=== PATIENT | female | born 1995 | race Caucasian/White ===

== ENCOUNTER 2018-04-14 11:05 | Outpatient (CLI) | payer OTHER, SELFPAY ==
[2018-04-14 11:06] VITALS: BP 116/67; PULSE 85; RESP 18; TEMP 36.4; O2SAT 100; BMI 21.7
--- NOTE | 2018-04-14 11:16 | ED.RN ---
VERIFIED WITH ER PHYSICIAN THAT PT SHOULD BE SENT TO OB. OB CALLED AND INFORMATION GIVEN TO NURSE. PT TAKEN BY WHEELCHAIR TO OB.
[2018-04-14 11:52] VITALS: BMI 21.3
--- NOTE | 2018-04-14 12:17 | US_ITS ---
STUDY: SECOND AND THIRD TRIMESTER OBSTETRICAL ULTRASOUND REASON FOR EXAM: Female, 23 years old. Anatomy scan. Bleeding and pain. LMP: 11/06/2017 TECHNIQUE: Transabdominal and Transvaginal TECHNICAL QUALITY: Adequate. PRIOR ULTRASOUND: None. FINDINGS: There is a single intrauterine fetus. The fetus is in an transverse lie with the head on the maternal left side. There is demonstrated cardiac activity with a heart rate of 155 bpm. There is a normal amniotic fluid volume. The largest amniotic fluid pocket measures 8.9 cm. The placenta is anterior in location and is not low lying. There are Grade 2 placental changes. The cervix measures 3.9 cm in length. A hyperechoic band is seen across the lower uterine segment. No entrapment segments are seen. BIOMETRY: BPD: 5.9: 24 weeks, 2 days HC: 21.7: 23 weeks, 6 days AC: 19.1: 23 weeks, 6 days FL: 4.1: 23 weeks, 3 days CI: FL/BPD: FL/HC: FL/AC: HC/AC: age by current US: 23 weeks, 6 days. CAROLINA by current US: 08/05/2018. Estimated weight: 619 grams, +/- 90 grams, 87 %. age by prior US: weeks, days. CAROLINA by prior US: . Age by LMP: 22 weeks, 5 days. CAROLINA by LMP: 08/13/2018. ANATOMY: Gender: Indeterminant Cranium: Normal lateral ventricles. Normal choroid plexus. Normal cerebellum. Normal cisterna magna. Normal face, nose and lips. Chest: Normal 4-chamber heart. Abdomen/Pelvis: Normal diaphragm. Normal stomach. Normal abdominal wall. Normal cord insertion. Normal 3 vessel cord. Normal kidneys. Normal bladder. Spine: Normal cervical spine. Normal thoracic spine. Normal lumbar spine. Normal sacrum. Extremities: Normal bilateral upper extremities. Normal bilateral lower extremities. US/OB Anatomy Scan IMPRESSION: Single live fetus in a transverse presentation. No demonstrated anatomic abnormality, however a short length band is seen across the lower uterine segment. Placenta is grade 2 and is not low-lying. Cervix is closed. age by current US: 23 weeks, 6 days. CAROLINA by current US: 08/05/2018. Estimated weight: 619 grams, +/- 90 grams, 87 %. Electronically Signed: Elio Mancilla MD at 16:56 EST , Service support ,
[2018-04-14 12:45] LABS: Mucous, Urine 0 SEEN /hpf (<or=2+)
--- NOTE | 2018-04-14 12:52 | OB.TRI.NOTE ---
- Problem List (1) Abdominal pain affecting Status: Acute History of Present Illness Date of Service: 04/14/18 Was patient seen by the physician?: Yes Reason For Visit: BLEEDING Date of Service: 04/14/18 Final CAROLINA: 08/13/18 Final CAROLINA Source: LMP Gestational age: 22 Weeks and 5 Days History of Present Illness: Presents to L&D with complaint of abdominal cramping that has been on and off throughout the . Yesterday became more severe and curled up in ball on floor due to pain. Denies it being regular or rhythmic but more intermittent every couple hours. Had small amount of vaginal spotting on toilet paper but nothing in underwear, this only occurred once. No intercourse in last 24 hours. 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 Here with today. She has not had any anatomy ultrasound during . Blood type A positive per patient. Allergies No Known Allergies Allergy (Verified 02/09/15 09:20) Review of Systems Constitutional: Denies: Chills, Fever, Weight Change HEENT: Denies: Head Aches, Sinus Congestion, Sinus Drainage Cardiovascular: Denies: Chest Pain, Palpitations Respiratory: Denies: Cough, Shortness of breath at rest, Sputum production Gastrointestinal: Reports: Abdominal Pain. Denies: Nausea, Vomiting Genitourinary: Denies: Dysuria Psychiatric: Denies: Anxiety, Depression, Homicidal Ideations, Suicidal Ideations Physical Exam General: Alert, Oriented x3, No apparent distress HEENT: Atraumatic, Normocephalic Cardiovascular: Regular rate, Regular Rhythm, No murmurs Lungs: Clear to auscultation, No rhonchi, No wheeze Abdomen: Non Tender, Gravid Extremities:: No edema COACH PROFESSIONAL ATHLETES: Normal external genitalia - Speculum exam: cervix closed, small amount of white discharge, no odor, no blood NST - FHR Rate Baby A Baseline: FHR 150, Too early for NST Impression/Plan A: 22w5d EGA by LMP Abdominal pain P: 1) Reviewed with patient uterine irritability and would like to monitor at this time. 2) Anatomy Ultrasound ordered with cervical length. No cervical exam at this time due to second trimester vaginal bleeding and unknown placental location. Visual inspection with speculum exam. 3) 1 Liter LR IV bolus 4) notified of plan of care and agrees for comanagement. Lisette Gross, JAMIN, CNM
--- NOTE | 2018-04-14 12:56 | OB.TRI.HP_ITS ---
- Problem List (1) Abdominal pain affecting Status: Acute History of Present Illness Date of Service: 04/14/18 Was patient seen by the physician?: Yes Reason For Visit: BLEEDING Date of Service: 04/14/18 Final CAROLINA: 08/13/18 Final CAROLINA Source: LMP Gestational age: 22 Weeks and 5 Days History of Present Illness: Presents to L&D with complaint of abdominal cramping that has been on and off throughout the . Yesterday became more severe and curled up in ball on floor due to pain. Denies it being regular or rhythmic but more intermittent every couple hours. Had small amount of vaginal spotting on toilet paper but nothing in underwear, this only occurred once. No intercourse in last 24 hours. Current care by rn peritoneal dialysis in [place]. Here with today. She has not had any anatomy ultrasound during . Blood type A positive per patient. Allergies No Known Allergies Allergy (Verified 02/09/15 09:20) Review of Systems Constitutional: Denies: Chills, Fever, Weight Change HEENT: Denies: Head Aches, Sinus Congestion, Sinus Drainage Cardiovascular: Denies: Chest Pain, Palpitations Respiratory: Denies: Cough, Shortness of breath at rest, Sputum production Gastrointestinal: Reports: Abdominal Pain. Denies: Nausea, Vomiting Genitourinary: Denies: Dysuria Psychiatric: Denies: Anxiety, Depression, Homicidal Ideations, Suicidal Ideations Physical Exam General: Alert, Oriented x3, No apparent distress HEENT: Atraumatic, Normocephalic Cardiovascular: Regular rate, Regular Rhythm, No murmurs Lungs: Clear to auscultation, No rhonchi, No wheeze Abdomen: Non Tender, Gravid Extremities:: No edema SERVICES MANAGER: Normal external genitalia - Speculum exam: cervix closed, small amount of white discharge, no odor, no blood NST - FHR Rate Baby A Baseline: FHR 150, Too early for NST Impression/Plan A: 22w5d EGA by LMP Abdominal pain P: 1) Reviewed with patient uterine irritability and would like to monitor at this time. 2) Anatomy Ultrasound ordered with cervical length. No cervical exam at this time due to second trimester vaginal bleeding and unknown placental location. Visual inspection with speculum exam. 3) 1 Liter LR IV bolus 4) notified of plan of care and agrees for comanagement. Lisette Gross, JAMIN, CNM
[2018-04-14 13:17] LABS: Color, Urine Yellow (Yellow); Urine Clarity Sl Cldy (Clear)
[2018-04-14 13:18] LABS: Glucose, Dipstick NEGATIVE (Normal); Nitrite-Dipstick Negative (Negative); Protein-Dipstick 15 mg/dl (Negative)
[2018-04-14 13:19] LABS: Ketone-Dipstick Negative (Negative); Leukocyte Esterase-Dipstick 2+ /ul (Negative); Occult Blood-Urine 250 /ul (Negative); Urine Bilirubin Dipstick Negative (Negative); Urine Urobilinogen Normal (Normal)
[2018-04-14 13:27] LABS: White Blood Cells 10-25 SEEN /hpf (0-5)
[2018-04-14 13:28] LABS: Bacteria 1+ /hpf (None Seen); Red Blood Cells-Urine 25-50 SEEN /hpf (0-5); Squamous Epithelial Cells - UA 0-5 SEEN /hpf (5-10)
[2018-04-14] MEDS: Lactated Ringers 1,000 ML 999 ML IV (14:20)
--- NOTE | 2018-04-14 17:34 | OB.TRI.PN ---
Progress Notes Date of Service: 04/14/18 Progress Note: Patient comfortable in room. Denies any current pain or vaginal bleeding. at bedside. O:Anatomy U/S normal, cervical length 3.9cm, placenta anterior. A:False Labor P: 1) Reviewed anatomy U/S with patient. No signs of PTL at this time. 2) Reviewed PTL precautions in depth and when to call. 3) Patient plans to resume care with Maile Nolen CPM in [place]. Patient given information about [facility] if she needs anything further or comanagement of care. Patient plans to go to [facility] if emergency. 4) UA negative, Urine culture sent and awaiting results. Laboratory Studies: Laboratory Tests 04/14/18 Range/Units 12:25 Urine Color Yellow (Yellow) Urine Clarity Sl Cldy (Clear) Urine pH 7.0 (5.0 - 8.0) Ur Specific [place] 1.000 L (1.002-1.030) Urine Protein 15 H (Negative) mg/dl Urine Glucose (UA) NEGATIVE (Normal) mg/dl Urine Ketones Negative (Negative) mg/dl Urine Occult Blood 250 (Negative) /ul Urine Nitrite Negative (Negative) Urine Bilirubin Negative (Negative) mg/dL Urine Urobilinogen Normal (Normal) mg/dl Ur Leukocyte Esterase 2+ (Negative) /ul Urine RBC 25-50 SEEN (0-5) /hpf Urine WBC 10-25 SEEN (0-5) /hpf Ur Squamous Epith Cells 0-5 SEEN (5-10) /hpf Urine Bacteria 1+ (None Seen) /hpf Urine Mucus 0 SEEN (<or=2+) /hpf
--- NOTE | 2018-04-14 17:38 | OB.TRI.PN_ITS ---
Progress Notes Date of Service: 04/14/18 Progress Note: Patient comfortable in room. Denies any current pain or vaginal bleeding. at bedside. O:Anatomy U/S normal, cervical length 3.9cm, placenta anterior. A:False Labor P: 1) Reviewed anatomy U/S with patient. No signs of PTL at this time. 2) Reviewed PTL precautions in depth and when to call. 3) Patient plans to resume care with Maile Nolen CPM in [place]. Patient given information about [facility] if she needs anything further or comanagement of care. Patient plans to go to [facility] if emergency. 4) UA negative, Urine culture sent and awaiting results. Laboratory Studies: Laboratory Tests 04/14/18 Range/Units 12:25 Urine Color Yellow (Yellow) Urine Clarity Sl Cldy (Clear) Urine pH 7.0 (5.0 - 8.0) Ur Specific [place] 1.000 L (1.002-1.030) Urine Protein 15 H (Negative) mg/dl Urine Glucose (UA) NEGATIVE (Normal) mg/dl Urine Ketones Negative (Negative) mg/dl Urine Occult Blood 250 (Negative) /ul Urine Nitrite Negative (Negative) Urine Bilirubin Negative (Negative) mg/dL Urine Urobilinogen Normal (Normal) mg/dl Ur Leukocyte Esterase 2+ (Negative) /ul Urine RBC 25-50 SEEN (0-5) /hpf Urine WBC 10-25 SEEN (0-5) /hpf Ur Squamous Epith Cells 0-5 SEEN (5-10) /hpf Urine Bacteria 1+ (None Seen) /hpf Urine Mucus 0 SEEN (<or=2+) /hpf
== END 2018-04-14 17:25 | disposition home or self-care (01) ==
LOC: WPOUT 11:35 → WP 11:35
PROVIDERS: Family Provider Family Medicine; PCP Family Medicine; Referring Provider Obstetrics & Gynecology; Visit Provider Obstetrics & Gynecology
DX: O47.02 False labor before 37 completed weeks of gestation, second trimester (principal); Z3A.22 22 weeks gestation of pregnancy; R10.9 Unspecified abdominal pain
CPT/HCPCS: 96360; 59050; 76805; 81001; 87086; 87088; 99218; J7120; G0378

== ENCOUNTER → 2020-05-14 | Outpatient (CLI) | payer SELFPAY ==
[2020-05-14 14:54] VITALS: BMI 21.2
[2020-05-17 15:47] LABS: HPV Reflexed? NOT INDICATED
== END | disposition home or self-care (01) ==
LOC: LABSPEC 16:56
PROVIDERS: Visit Provider Obstetrics & Gynecology
DX: O09.90 Supervision of high risk pregnancy, unspecified, unspecified trimester (principal); Z3A.00 Weeks of gestation of pregnancy not specified; Z12.4 Encounter for screening for malignant neoplasm of cervix
CPT/HCPCS: 87086; 87088; 88175; G0145

== ENCOUNTER → 2020-06-14 15:13 | Outpatient (CLI) | payer OTHER, SELFPAY ==
[2020-06-14 15:36] LABS: Absolute Lymphocyte Count 2.04 X10^3/uL (0.83-4.51); Absolute Neutrophil Count 7.5 X10^3/uL (2.0-7.7); Basophil# 0.02 X10^3/uL; Basophil% 0.2 % (0-1); Eosinophil# 0.06 X10^3/uL; Eosinophils% 0.6 % (0-5); Hematocrit 36.6 % (37-47); Hemoglobin 12.5 g/dL (12.0-15.0); Lymphocyte # 2.04 X10^3/ul (4.0); Lymphocyte % 19.9 % (19-41); Mean Corp Hgb Conc 34.2 g/dL (32-36); Mean Corpuscular Hgb 31.7 pg (27.0-32.0); Mean Corpuscular Volume 92.9 fL (81-99); Mean Platelet Vol. 8.7 fl (6.2-12.0); Monocyte# 0.62 X10^3/uL; Monocyte% 6.1 % (0-10); NRBC Flagged by Analyzer 0 % (0-5); Neutrophil # 7.46 X10^3/uL (2.7-7.7); Neutrophil % 72.9 % (47-70); Platelet Count 231 K/mm3 (150-450); RBC Distribution Width CV 13.4 % (11.6-14.6); RBC Distribution Width SD 46.1 fl (35.1-43.9); Red Blood Count 3.94 M/mm3 (4.2-5.4); White Blood Count 10.2 K/mm3 (4.4-11.0)
[2020-06-14 15:44] LABS: POSITIVE COUNT NO; POSITIVE DIFFERENTIAL NO; POSITIVE MORPHOLOGY NO
[2020-06-14 16:07] LABS: Rubella IgG Reactive (Nonreactive)
== END ==
PROVIDERS: Obstetrics & Gynecology; Referring Provider Obstetrics & Gynecology; Visit Provider Obstetrics & Gynecology
DX: O09.90 Supervision of high risk pregnancy, unspecified, unspecified trimester (principal); Z3A.00 Weeks of gestation of pregnancy not specified
CPT/HCPCS: 36415; 85025; 86762; 86850; 86900; 86901

== ENCOUNTER → 2020-07-12 14:51 | Outpatient (CLI) | payer SELFPAY ==
[2020-07-12 14:25] VITALS: BMI 22.6
--- NOTE | 2020-07-12 14:52 | US_ITS ---
STUDY: SECOND AND THIRD TRIMESTER OBSTETRICAL ULTRASOUND REASON FOR EXAM: Female, 25 years old ANATOMY LMP: 02/15/2020. TECHNIQUE: Transabdominal TECHNICAL QUALITY: Adequate. PRIOR ULTRASOUND: None. FINDINGS: There is a single intrauterine fetus. The fetus is in a variable presentation. There is demonstrated cardiac activity with a heart rate of 153 bpm. There is a normal amniotic fluid volume. The largest amniotic fluid pocket measures 4.5 cm. The amniotic fluid index (KADEN) is normal limits. The placenta is posterior in location and is not low lying. There are Grade 0 placental changes. The cervix measures 3.2 cm in length. The bilateral adnexal regions are normal. BIOMETRY: BPD: 5.06 cm: 21 weeks, 2 days HC: 18.57 cm: 20 weeks, 6 days AC: 16.02 cm: 21 weeks, 0 days FL: 3.39 cm: 20 weeks, 4 days CI: 77% FL/BPD: 67% FL/HC: FL/AC: 21% HC/AC: 1.16 age by current US: 20 weeks, 6 days. CAROLINA by current US: 11/23/2020. Estimated weight: 391 grams, +/- 59 grams, 36 %. Age by LMP: 21 weeks, 1 days. CAROLINA by LMP: 11/21/2020. ANATOMY: Gender: Male Cranium: Normal lateral ventricles. Normal choroid plexus. Normal cerebellum. Normal cisterna magna. Normal face, nose and lips. Chest: Normal 4-chamber heart. Abdomen/Pelvis: Normal diaphragm. Normal stomach. Normal abdominal wall. Normal cord insertion. Normal 3 vessel cord. Normal kidneys. Normal bladder. Spine: Normal cervical spine. Normal thoracic spine. Normal lumbar spine. Normal sacrum. Extremities: Normal bilateral upper extremities. Normal bilateral lower extremities. US/OB Anatomy Scan IMPRESSION: Single live intrauterine gestation with a mean gestational age of 20 weeks and 6 days. Electronically Signed: Pranav Connors MD at 10:25 EST , Service support ,
== END ==
PROVIDERS: Referring Provider Obstetrics & Gynecology; Visit Provider Obstetrics & Gynecology
DX: Z36.9 Encounter for antenatal screening, unspecified (principal)
CPT/HCPCS: 76805

== ENCOUNTER → 2020-08-29 14:31 | Outpatient (CLI) | payer SELFPAY ==
[2020-08-10 13:46] VITALS: BMI 23.1
[2020-08-23 14:02] VITALS: BMI 23.8
[2020-08-29 14:49] LABS: Absolute Lymphocyte Count 1.82 X10^3/uL (0.83-4.51); Absolute Neutrophil Count 8.8 X10^3/uL (2.0-7.7); Basophil# 0.01 X10^3/uL; Basophil% 0.1 % (0-1); Eosinophil# 0.03 X10^3/uL; Eosinophils% 0.3 % (0-5); Hematocrit 35.9 % (37-47); Hemoglobin 12.3 g/dL (12.0-15.0); Lymphocyte # 1.82 X10^3/ul (4.0); Lymphocyte % 15.9 % (19-41); Mean Corp Hgb Conc 34.3 g/dL (32-36); Mean Corpuscular Hgb 32.9 pg (27.0-32.0); Mean Platelet Vol. 8.5 fl (6.2-12.0); Monocyte# 0.68 X10^3/uL; NRBC Flagged by Analyzer 0 % (0-5); Neutrophil # 8.83 X10^3/uL (2.7-7.7); Neutrophil % 77.3 % (47-70); Platelet Count 197 K/mm3 (150-450); RBC Distribution Width CV 13.9 % (11.6-14.6); RBC Distribution Width SD 48.8 fl (35.1-43.9); Red Blood Count 3.74 M/mm3 (4.2-5.4); White Blood Count 11.4 K/mm3 (4.4-11.0)
[2020-08-29 14:59] LABS: Glucose Challenge Gest 1H 50g 182 mg/dL (70-140)
== END ==
PROVIDERS: Referring Provider Nurse Practitioner Women's Health; Visit Provider Nurse Practitioner Women's Health
DX: O09.90 Supervision of high risk pregnancy, unspecified, unspecified trimester (principal); Z3A.00 Weeks of gestation of pregnancy not specified; Z13.1 Encounter for screening for diabetes mellitus
CPT/HCPCS: 36415; 82950; 85025

== ENCOUNTER 2020-09-05 11:40 | Outpatient (RCR) | payer SELFPAY ==
[2020-08-29 14:51] VITALS: BMI 23.7
== END 2020-09-05 23:59 ==
LOC: DC 11:40
PROVIDERS: Visit Provider Nurse Practitioner Women's Health
DX: Z71.3 Dietary counseling and surveillance (principal); O24.419 Gestational diabetes mellitus in pregnancy, unspecified control; Z3A.00 Weeks of gestation of pregnancy not specified
CPT/HCPCS: 97802

== ENCOUNTER 2020-09-20 11:30 | Outpatient (RCR) | payer SELFPAY ==
[2020-09-05 13:55] VITALS: BMI 23.1
== END 2020-10-05 23:59 ==
LOC: DC 11:30
PROVIDERS: Visit Provider Nurse Practitioner Women's Health
DX: O24.419 Gestational diabetes mellitus in pregnancy, unspecified control (principal); Z3A.00 Weeks of gestation of pregnancy not specified

== ENCOUNTER → 2020-10-26 | Outpatient (CLI) | payer SELFPAY ==
[2020-09-28 14:00] VITALS: BMI 23.6
[2020-10-26 14:03] VITALS: BMI 23.6
== END | disposition home or self-care (01) ==
LOC: LABSPEC 16:52
PROVIDERS: Visit Provider Obstetrics & Gynecology
DX: Z34.93 Encounter for supervision of normal pregnancy, unspecified, third trimester (principal)
CPT/HCPCS: 87081

== ENCOUNTER 2020-11-19 01:32 | Inpatient (IN) | payer SELFPAY ==
[2020-11-16 14:40] VITALS: BMI 23.6
[2020-11-19] VITALS (24 sets, daily range): BP systolic 93–111; BP diastolic 52–73; PULSE 60–120; RESP 14–18; TEMP 36.1–37.6; O2SAT 97–99; BMI 24.2
[2020-11-19] MEDS: Lactated Ringers 1,000 ML 999 ML IV (01:51)
[2020-11-19 01:58] LABS: Absolute Lymphocyte Count 1.64 X10^3/uL (0.83-4.51); Absolute Neutrophil Count 11.5 X10^3/uL (2.0-7.7); Basophil# 0.01 X10^3/uL; Basophil% 0.1 % (0-1); Eosinophil# 0.01 X10^3/uL; Eosinophils% 0.1 % (0-5); Hematocrit 38.7 % (37-47); Hemoglobin 13.1 g/dL (12.0-15.0); Lymphocyte # 1.64 X10^3/ul (0.83-4.51); Lymphocyte % 11.8 % (19-41); Mean Corp Hgb Conc 33.9 g/dL (32-36); Mean Corpuscular Hgb 32.6 pg (27.0-32.0); Mean Corpuscular Volume 96.3 fL (81-99); Mean Platelet Vol. 9.3 fl (6.2-12.0); Monocyte# 0.77 X10^3/uL; Monocyte% 5.5 % (0-10); NRBC Flagged by Analyzer 0 % (0-5); Neutrophil # 11.45 X10^3/uL (2.7-7.7); Platelet Count 183 K/mm3 (150-450); RBC Distribution Width CV 12.8 % (11.6-14.6); RBC Distribution Width SD 45.1 fl (35.1-43.9); Red Blood Count 4.02 M/mm3 (4.2-5.4)
[2020-11-19] MEDS: Ondansetron 4 MG/2 ML Vial IV (02:09)
--- NOTE | 2020-11-19 02:16 | HP.PCM.OB_ITS ---
HPI - General General Date of Admission: 11/19/20 HPI Narrative RAY GONG, is a 25 F who presents IAL 7 cm dilated with regular ctx. she denies any vb or lof admits good fm. Maternal Data Information CAROLINA Calculator Estimated Delivery Date Method Current WG Current Estimate 11/21/20 LMP (Certain) 39w 5d Other Estimates 11/20/20 Ultrasound #1 39w 6d PFSH PFSH Medical History Anxiety H/O maternal blood transfusion, currently (~08/2019) Hyperglycemia in Home Medications vit,[id number] 1 tab PO DAILY 04/14/18 [History Last Taken 04/09/18 10:00] blood sugar diagnostic #100 each 08/29/20 [Rx Last Taken Unknown] blood-glucose meter #1 each 08/29/20 [Rx Last Taken Unknown] blood sugar diagnostic #10 each 09/05/20 [History Last Taken Unknown] blood-glucose meter #1 each 09/05/20 [History Last Taken Unknown] Allergy/AdvReac Type Severity Reaction Status Date / Time No Known Allergies Allergy Verified 11/19/20 01:17 Family History Mother Breast cancer Grandfather Cancer Grandmother Breast cancer Surgical History H/O dilation and curettage (~08/2018) Social History household members: family housing: house number of children: 1 Smoking Status: Never smoker second hand exposure: No alcohol intake: never substance use type: does not use seatbelt use: always do you feel safe at home: Yes additional social history: [place] Medical History 2 Elective abortions Hx Para 1 Spontaneous abortions Hx # Term Pregnancies Ectopic pregnancies Hx # Pregnancies Multiple births # of living children 1 Past Pregnancies Del. Date Name GA/Weeks Outcome Route Bth Weight Gen Labor Lgth Anesthesia Del Locatn Provider FOB 08/19/18 Roland 40 live - full term 8lbs 15oz Male 8 h ours none Birthing Center in [place] Delivery Date: 08/19/18 hemorrhage- retained placenta, post dilation and curettage; blood transfusion- received 2 units of blood at [facility] Visit Details Expected Delivery Route/Plan by 40 weeks Labor Preferences- CB/BF classes: no labor support person: Ameena labor intervention preferences: IA if able, okay with touch and pressure, hydrotherapy, pain management options preferred: natural, minimal intervention cut cord/dad catch: maybe : yes PP control planned: condoms discussed possible routes of delivery and associated risks: [] special requests: [] Plans flu vaccine: decline tdap vaccine: declines rhogam: na LARC form signed: yes movement and labor precautions reviewed. Problem list reviewed and updated with the most current plan of care details and appropriate orders placed. Relevant counseling for the gestational age provided. Continue routine care and follow up unless otherwise noted in visit notes/problem list details OB Flowsheet Initial Weight: 125 lb Date -?-?-?-?-?-?-?-?-?-?-?-?- EGA Weight BP Urine Prot -?-?-?-?-?-?-?-?-?-?-?-?- Glucose FHR FuHt Pres Dilation -?-?-?-?-?-?-?-?-?-?-?-?- Effaced St Visit Note 05/14/20 -?-?-?-?-?-?-?-?-?-?-?-?- 12w 5d 124 lb (-16 oz) 128/78 -?-?-?-?-?-?-?-?-?-?-?-?- 168 -?-?-?-?-?-?-?-?-?-?-?-?- GP - CRL 68mm co nsistent with LMP. 06/14/20 -?-?-?-?-?-?-?-?-?-?-?-?- 17w 1d 92/62 -?-?-?-?-?-?-?-?-?-?-?-?- 150 -?-?-?-?-?-?-?-?-?-?-?-?- SM- no vb crampi ng SM- no vb cramping discussed NOB labs, declines STD testing but open to having it at delivery 07/12/20 -?-?-?-?-?-?-?-?-?-?-?-?- 21w 1d 132 lb (+7 lb) 106/62 -?-?-?-?-?-?-?-?-?-?-?-?- 155 -?-?-?-?-?-?-?-?-?-?-?-?- GP - no cramping or bleeding. Anatomy scan this afternoon. 08/10/20 -?-?-?-?-?-?-?-?-?-?-?-?- 25w 2d 135 lb (+10 lb) 116/58 Negative -?-?-?-?-?-?-?-?-?-?-?-?- Negative 145 25 -?-?-?-?-?-?-?-?-?-?-?-?- SM- no vb lof go od fm no regular ctx 08/23/20 -?-?-?-?-?-?-?-?-?-?-?-?- 27w 1d 139 lb (+14 lb) 116/60 Negative -?-?-?-?-?-?-?-?-?-?-?-?- Negative 140 0 -?-?-?-?-?-?-?-?-?-?-?-?- SM- co ctx overn inght. no vb lof good fm. decreased today 08/29/20 -?-?-?-?-?-?-?-?-?-?-?-?- 28w 0d 138 lb 2 oz (+13 lb 2 oz) 110/60 Trace -?-?-?-?-?-?-?-?-?-?-?-?- Negative 150 28 -?-?-?-?-?-?-?-?-?-?-?-?- MH-Good FM. NO V B, LOF. 28 wk labs: gCT 182:GDM. Discussed testing and supplies sent. Ref for Dr Ramos and dietitian. Declines tdap. Larc signed. 09/28/20 -?-?-?-?-?-?-?-?-?-?-?-?- 32w 2d 138 lb (+13 lb) 100/70 Negative -?-?-?-?-?-?-?-?-?-?-?-?- Negative 150 32 -?-?-?-?-?-?-?-?-?-?-?-?- GP - no LOF, VB, DFM, ctx. BGTs well controlled. Plan growth at 36w only since SP and blood sugars all normal. 10/12/20 -?-?-?-?-?-?-?-?-?-?-?-?- 34w 2d 138 lb (+13 lb) Negative -?-?-?-?-?-?-?-?-?-?-?-?- Negative 145 34 Cephalic -?-?-?-?-?-?-?-?-?-?-?-?- SM- no vb lof go od fm no reuglar ctx BG well controlled SM- no vb lof good fm no reu glar ctx BG well controlled discussed growth us 36 weeks, patient may decline 10/26/20 -?-?-?-?-?-?-?-?-?-?-?-?- 36w 2d 142 lb (+17 lb) 112/82 Negative -?-?-?-?-?-?-?-?-?-?-?-?- Negative 140 35 Cephalic 0 -?-?-?-?-?-?-?-?-?-?-?-?- SM- declined vin wt US. 11/01/20 -?-?-?-?-?-?-?-?-?-?-?-?- 37w 1d 147 lb 4 oz (+22 lb 4 oz) 130/78 Negative -?-?-?-?-?-?-?-?-?-?-?-?- Negative 125 37 Cephalic 3 -?-?-?-?-?-?-?-?-?-?-?-?- 60 -2 GP - no LO F, VB, DFM, ctx. 11/08/20 -?-?-?-?-?-?-?-?-?-?-?-?- 38w 1d 141 lb (+16 lb) 124/80 Negative -?-?-?-?-?-?-?-?-?-?-?-?- Negative 130 38 Cephalic 4 -?-?-?-?-?-?-?-?-?-?-?-?- 60 -2 GP - no LO F, VB, DFM, ctx. Denies complaints. 11/16/20 -?-?-?-?-?-?-?-?-?-?-?-?- 39w 2d 141 lb (+16 lb) 102/62 Negative -?-?-?-?-?-?-?-?-?-?-?-?- Negative 135 39 Cephalic 4 -?-?-?--?-?-?-?-?-?-?-?-?- 60 -1 SM- no vb lof good fm no regular ctx, well controlled BS discussed IOL 40 weeks 11/19/20 -?-?-?-?-?-?-?-?-?-?-?-?- 39w 5d 141 lb (+16 lb) 107/72 -?-?-?-?-?-?-?-?-?-?-?-?- -?-?-?-?-?-?-?-?-?-?-?-?- NST FHR Rate Baby A Baseline: 130 Variability:: Moderate Accelerations:: 15 x 15 Decelerations:: None NST Reactive:: Yes FHR Category:: Category I Uterine Activity:: q3-5 ROS Constitutional Constitutional: Reports systems reviewed and no addt'l complaints, except as documented ENT HEENT: Reports systems reviewed and no addt'l complaints, except as documented Cardiovascular Cardiovascular: Reports systems reviewed and no addt'l complaints, except as documented Respiratory/Chest Respiratory/Chest: Reports systems reviewed and no addt'l complaints, except as documented Gastrointestinal Gastrointestinal: Reports systems reviewed and no addt'l complaints, except as documented and nausea; Denies abdominal pain Genitourinary Genitourinary: Reports systems reviewed and no addt'l complaints, except as documented, contractions Details: present and frequency (regular ) and movement Details: present Musculoskeletal Musculoskeletal: Reports systems reviewed and no addt'l complaints, except as documented Integumentary Integumentary: Reports as per HPI Neurologic Neurologic: Reports systems reviewed and no addt'l complaints, except as documented Endocrine Endocrinology: Reports systems reviewed and no addt'l complaints, except as documented Vital Signs Vital Signs Vital Signs: 11/19/20 01:20 11/19/20 01:22 Temperature 99.1 F Temperature Source Temporal Pulse Rate 86 80 Blood Pressure 107/72 BP Systolic 107 BP Diastolic 72 Pulse Ox 97 Weight Weight: 141 lb Body Mass Index (BMI) 24.2 Physical Exam Const alert, oriented x3 and healthy appearing Constitutional Narrative: uncomfortable with contractions HEENT normocephalic and moist oral mucous membranes Head and Scalp: atraumatic Neck full ROM, no lymphadenopathy, supple and thyroid normal General: trachea midline Thyroid: thyroid normal Lymph Lymphatic: no lymphadenopathy noted Chest inspection of chest normal Resp normal respiratory effort Cardio regular rate GI normal to inspection, nondistended, normoactive bowel sounds, soft to palpation and non-tender Inspection: gravid external exam normal Bimanual Exam - Vag & Uterus: uterus non-tender Manual OB Exam: estimated gestational size appropriate, presentation cephalic, dilated, effaced and station Extremity normal to inspection General Extremity: Negative for edema Skin no rashes or lesions noted Neuro deep tendon reflexes 2+ bilaterally Motor Exam: strength 5/5 throughout and clonus absent Psych mental status grossly normal Labs Labs Labs: Blood Type A POSITIVE Antibody Screen NEGATIVE Hct 38.7 % (37-47) Hgb 13.1 g/dL (12.0-15.0) Obstetrics US Rubella IgG Antibody Reactive (Nonreactive) Glucose 1 Hr 50 gm 182 mg/dL (70-140) H Assessment & Plan (1) Anxiety: COMMENT: 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 (2) : QUALIFIERS: Weeks of gestation: 38 weeks Qualified Code(s): Z3A.38 - 38 weeks gestation of COMMENT: declines genetic, carrier and NTD, Limited NOB labs - only CBC, T&S, rubella, urine cx; NL anatomy. gbs neg. COVID test declined (3) Supervision of high risk , antepartum: COMMENT: PRR (SP labs) CAROLINA 06/16/21 surprisePC: Roland Spouse: Ameena (4) Family history of cleft palate: COMMENT: 's 1st cousin (5) Family history of congenital heart defect: COMMENT: Patient's 1st cousin (she has since passed d/t cardiac issue) (6) Family history of neural tube defect: COMMENT: 's 1st Cousin (7) H/O hemorrhage, currently : COMMENT: d/t retained placenta. Required GET from birthing center to hospital. (8) Gestational diabetes: QUALIFIERS: Gestational diabetes mellitus control: diet-controlled Trimester: third trimester Qualified Code(s): O24.410 - Gestational diabetes mellitus in , diet controlled COMMENT: referral sent to nutrition and Dr. Ramos; needs growth US at 36w (declined), delivery by 40w (9) 37 weeks gestation of : COMMENT: electronic covid test ordered 09/26/20 (scheduled for 11/16/20 at 1410) (10) Active labor at term: PLAN: Patient presents IAL, plan expectant management for , pitocin/AROM PRN if needed. Pain management: minimal intervention. GBS neg. Management of any complications: gdma1- check BS per protocol I have reviewed the [facility] and made any clinically relevant updates.
[2020-11-19] MEDS: Oxytocin 30 units/NS 500 ml 30 UNITS/500 ML IV.SOLN 334 UNITS IV (02:47)
--- NOTE | 2020-11-19 02:58 | OP.PCM_ITS ---
Assessment & Plan (1) Active labor at term: (2) 37 weeks gestation of : COMMENT: electronic covid test ordered 09/26/20 (scheduled for 11/16/20 at 1410) (3) Gestational diabetes: QUALIFIERS: Gestational diabetes mellitus control: diet-controlled Trimester: third trimester Qualified Code(s): O24.410 - Gestational diabetes mellitus in , diet controlled COMMENT: referral sent to nutrition and Dr. Ramos; needs growth US at 36w (declined), delivery by 40w (4) H/O hemorrhage, currently : COMMENT: d/t retained placenta. Required GET from birthing center to hospital. (5) Family history of neural tube defect: COMMENT: 's 1st Cousin (6) Family history of congenital heart defect: COMMENT: Patient's 1st cousin (she has since passed d/t cardiac issue) (7) Family history of cleft palate: COMMENT: 's 1st cousin (8) Supervision of high risk , antepartum: COMMENT: PRR (SP labs) CAROLINA 11/21/20 surprisePC: Roland Spouse: Ameena (9) : QUALIFIERS: Weeks of gestation: 38 weeks Qualified Code(s): Z3A.38 - 38 weeks gestation of COMMENT: declines genetic, carrier and NTD, Limited NOB labs - only CBC, T&S, rubella, urine cx; NL anatomy. gbs neg. 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 (11) Vaginal delivery: COMMENT: 39 IAL SM boy Tl GDMA1 Maternal Data Information [place] Calculator Estimated Delivery Date Method Current WG Current Estimate 11/21/20 LMP (Certain) 39w 5d Other Estimates 11/20/20 Ultrasound #1 39w 6d Vaginal Delivery Maternal Presentation Maternal Presentation: Active Labor Operative Information Date of Procedure: 11/19/20 Pre-Operative Diagnosis: IAL Post-Operative Diagnosis: same Surgery / Procedure Performed: Spontaneous Vaginal Delivery Type of Anesthesia: Local with 1% Lidocaine Special Medications: none Estimated Blood Loss: 200 Fluids Replaced: crystalloid Findings Description of Procedure: Patient began pushing and delivered the head in the NESTOR presentation. The head was delivered atraumatically. The anterior and posterior shoulders delivered without complication followed by the rest of the and the was placed on the maternal abdomen. Delayed cord clamping was employed for approximately 60 seconds. Cord was clamped and cut and gentle traction was applied to the cord and the placenta delivered spontaneously immediately following it was noted to be intact with three-vessel cord. The perineum and vagina were inspected and noted to have a second-degree perineal laceration repaired in the usual fashion with 3-0 Vicryl rapide after injecting with 1% lidocaine. EBL was 200 cc. Patient and tolerated delivery well. Presentation: NESTOR Amniotic Membrane Rupture Type: Spontaneous Amniotic Fluid Description: Clear Placental Delivery Description: Spontaneous Placenta Disposition: [facility] Cord Vessel Description: 3 Vessels Cord Entanglement: None A Gender: Male Delayed Cord Clamping: Yes Post Vaginal Delivery Medications Given After Delivery: IV Pitocin Episiotomy Description: None Laceration: None Complication Complications: None Procedures Urinary/Genital 52xxx-59xxx: [id number] Vaginal Delivery [facility]
--- NOTE | 2020-11-19 03:01 | DCINST_ITS ---
Discharge Instructions Diet Discharge Diet: No restrictions Activity Discharge Activity: Return to Normal Activity, May Not Drive (while taking narcotic pain medications.) and May Shower May resume sexual activity in: 4-6 weeks Dressing / Incision Call your doctor if your incision/area has: Continuous Slow Oozing, Sudden Increased Bleeding, Increased Pain/ Swelling, Increased Redness and Foul Smelling Discharge Follow Up Care Please Follow Up With: Breanna Merritt MD When: Call [phone] to make an appointment with your doctor in 6 weeks. If you had elevated blood pressure or 4th degree laceration, you will need to be seen in 2 weeks. Test Results: Test results from this visit will be discussed in further detail at your follow-up appointment, if applicable. Discharge Plan Admission Admit Date/Time: 11/19/20 01:32 Primary Reason for Your Visit: vaginal delivery Attending Provider: Breanna Merritt Primary Care Provider: Lizeth Ford Primary Discharge Orders/Prescriptions Prescriptions: No Action (DME) blood-glucose meter [Truetrack Blood Glucose System] Kit See Rx Instructions .ROUTE .MEDSUPPLY Qty: 1 RF: 0 (DME) Truetrack Test Strip See Rx Instructions .ROUTE .MEDSUPPLY Qty: 100 RF: 4 (DME) blood-glucose meter [FreeStyle Precision Conrad Meter] [facility] See Rx Instructions .ROUTE .MEDSUPPLY Qty: 1 RF: 0 (DME) FreeStyle Precision Conrad Strips Strip See Rx Instructions .ROUTE .MEDSUPPLY Qty: 10 RF: 0 vit,[id number] 1 TABLET tablet 1 tab PO DAILY RF: 0 Referrals / Follow Up: Care Physician,No Primary [Primary Care Provider] - Breanna Merritt MD [STAFF PHYSICIAN] - Disposition Disposition (needs filled in before D/C Order can be placed): Home, self care
[2020-11-19] MEDS: Naproxen 500 MG Tablet PO ×3 (03:37→22:46)
[2020-11-19] MEDS: Methylergonovine 0.2 MG/ML Ampul IM (03:53)
[2020-11-19 04:16] LABS: Bedside Glucose 81 mg/dL (70-110)
[2020-11-19 04:16] LABS: Bedside Glucose 110 mg/dL (70-110)
[2020-11-19] MEDS: Acetaminophen 500 MG Tablet 1000 MG PO (04:33)
[2020-11-19] MEDS: 0.9% Saline Lock 10 ML Syringe IV (05:22)
[2020-11-19 07:37] LABS: HIV - WCH Non-Reactive (Nonreactive); Hepatitis B Surface Antigen Non-Reactive (Nonreactive); Hepatitis C Antibody Non-Reactive (Nonreactive)
[2020-11-19 08:48] LABS: Syphilis Antibodies Non-reactive
[2020-11-19 09:43] LABS: Chlamydia Trachomatis by PCR Negative (Negative); Neisserai gonorrhoeae by PCR Negative (Negative); Probe Check PASS; Sample Adequacy Control PASS; Specimen Processing Control PASS
[2020-11-19] MEDS: Prenatal Vits Tablet 1 TABLET PO (11:16)
[2020-11-20 04:00] VITALS: BP 91/50; PULSE 85; RESP 16; TEMP 36.2
[2020-11-20 06:00] VITALS: BP 96/57
[2020-11-20 06:21] LABS: Bedside Glucose 72 mg/dL (70-110)
--- NOTE | 2020-11-20 07:45 | PCM.PN.OB ---
Subjective Subjective Patient doing well without complaints. Tolerating PO. Ambulating and voiding without difficulty. feeding well. Denies chest pain, shortness of breath, calf pain/swelling, fevers, chills, lightheadedness. Objective Data Objective Data Vital Signs: Vital Signs Temp Pulse Resp BP Pulse Ox 97.1 F L 85 16 96/57 L 98 11/20/20 04:00 11/20/20 04:00 11/20/20 04:00 11/20/20 06:00 11/19/20 05:17 Oxygen Delivery Method Room Air Weight: 141 lb Body Mass Index (BMI) 24.2 Intake & Output: Intake and Output for Last 24 Hours 11/18/20 11/19/20 11/20/20 23:59 23:59 23:59 Intake Total 1015.33 / 1015.33 Output Total 800 / 800 Balance 215.33 / 215.33 Lab / Micro Data Result Diagrams: 11/19/20 01:50 Labs: Laboratory Results - last 24 hr 11/19/20 11/19/20 11/20/20 03:00 06:55 06:03 Syphilis Total Ab Non-reactive Chlam trachomat DNA PCR Negative N.gonorrhoeae DNA (PCR) Negative POC Glucose 72 Physical Exam Const alert and oriented x3 HEENT normocephalic Eyes PERRL Neck full ROM Resp normal respiratory effort GI soft to palpation GI Narrative: FF below U Assessment & Plan (1) Vaginal delivery: COMMENT: 39 IAL SM boy Tl GDMA1 PLAN: s/p PPD # 1 1. routine post delivery care 2. breast feeding- support given 3. rh positive 4. rubella immune 5. home today
[2020-11-20 08:10] VITALS: BP 89/46; PULSE 56; RESP 16; TEMP 36.4
--- NOTE | 2020-11-20 11:39 | CASEMGMT ---
Social Work Brief Assessment - Labor and Delivery Unit Patient Address: [address] [place] [address], [place] [id number] Phone number: [phone] Date of Referral/Notification: 11.19.2020 Time of Referral: [phone] Referred By: Dr. Merritt Reason for Referral: Maternal history of anxiety. Date of Intervention: 11.20.2020 Time of Intervention: 929 Informant: Medical record and mother of baby (MOB) So Romano History: MOB is G2, P1 to 2 after delivering baby boy Tl Romano this admission. MOB is to the father of baby (FOB) Taylor Romano, who works in [employer]. Older child at home is Roland, who was born on 08.19.2017 at [facility] in [place]. MOB reports had a difficult delivery and aftercare with Roland, needing transfer to the hospital immediately after . MOB reports did experience anxiety at about 6 weeks . MOB reports a cousin around this time as well. MOB reports she coped by talking to the FOB and also talking to MOB's mom. MOB reports it was very helpful to get worries off of MOB's chest and mind. No reports of suicidal thoughts during the anxiety. No reports or concerns regarding domestic violence with the FOB. No reports of any substance use issues. Assessment: Met with the MOB alone and then later joined by the FOB. FOB remained quiet during time in room, which was just a short time. MOB talkative, bright affect, good eye contact, engaged in conversation and attentive to baby during social work visit. MOB reports to be feeling good right now, and expressed understanding that risk for the depression is there for MOB due to past history. MOB agrees to talk to support system should symptoms arise again, as expresses belief that talking about things is very helpful. MOB reports tos have needed supplies for the baby, including a safe sleep space in the form of a bassinet and a crib. MOB reports she will gave a helper for a few weeks, which is the MOB's sister. MOB denies any needs for home going. Accepting of resource information on mood and anxiety disorders. Plan: Home with support from , and additional help from MOB's sister. mood and anxiety disorder information provided for home going. No further needs requested or indicated. -HAVEN Brady, ANABELLE
== END 2020-11-20 10:00 | disposition home or self-care (01) | DRG 807 ==
LOC: WPOUT 02:07 → WP 02:07
PROVIDERS: Admitting Provider Obstetrics & Gynecology; Referring Provider Obstetrics & Gynecology; Visit Provider Obstetrics & Gynecology
DX: O24.410 Gestational diabetes mellitus in pregnancy, diet controlled (principal); O70.1 Second degree perineal laceration during delivery; Z3A.39 39 weeks gestation of pregnancy; Z37.0 Single live birth
CPT/HCPCS: 59025; 59050; 82962; 85025; 86703; 86780; 86803; 86850; 86900; 86901; 87340; 87491; 87591; 99218; J7120; A4216; G0378; J2405

== ENCOUNTER → 2022-12-26 | Outpatient (CLI) | payer SELFPAY ==
[2022-12-26 10:06] LABS: hCG Titer Quant., Serum 22869 mIU/mL (1-3)
== END | disposition home or self-care (01) ==
PROVIDERS: Referring Provider Obstetrics & Gynecology; Visit Provider Obstetrics & Gynecology
DX: N91.2 Amenorrhea, unspecified (principal)
CPT/HCPCS: 36415; 84702

== ENCOUNTER → 2023-01-05 | Outpatient (CLI) | payer SELFPAY ==
--- NOTE | 2023-01-05 17:18 | US_ITS ---
STUDY: FIRST TRIMESTER OBSTETRICAL ULTRASOUND REASON FOR EXAM: Female, 27 years old . Dating. LMP: November 05, 2022 TECHNIQUE: Transvaginal TECHNICAL QUALITY: Adequate. PRIOR ULTRASOUND: None. FINDINGS: There is visualization of a single gestational sac in a normal intrauterine position. The mean sac diameter (MSD) measures 3.24 cm, indicating an estimated gestational age (EGA) of 8 weeks, 3 days. The gestational sac shape is within normal limits. There is a visualized yolk sac. The yolk sac measures 5.5 mm. The placenta is non-visualized. There is visualization of a live embryo. The crown-rump length (CRL) measures 1.32 cm, indicating an estimated gestational age (EGA) of 7 weeks, 4 days. There is demonstrated cardiac activity with a heart rate of 148 bpm. The estimated gestation age (EGA) by LMP is 8 weeks, 5 days. The estimated date of delivery (CAROLINA) by LMP is August 12, 2023. The estimated gestation age (EGA) by US is 8 weeks, 0 days. The estimated date of delivery (CAROLINA) by US is August 17, 2023. The uterus measures 10.5 cm x 6.8 cm x 5.7 cm. There is no demonstrated uterine fibroid. The cervix is closed. The right ovary measures 2.7 cm x 1.9 cm x 1.8 cm. There is no right ovarian cyst. There is no visualized right adnexal mass or complex lesion. The left ovary measures 3.3 cm x 2.1 cm x 1.8 cm. There is no left ovarian cyst. There is no visualized left adnexal mass or complex lesion. There is no fluid in the cul de sac. US/Transvaginal w/Preg US IMPRESSION: Single live intrauterine gestation with a mean gestational age of 8 weeks. Electronically Signed: Pranav Connors MD at 14:32 EDT ,
== END | disposition home or self-care (01) ==
PROVIDERS: Referring Provider Obstetrics & Gynecology; Visit Provider Obstetrics & Gynecology
DX: Z34.90 Encounter for supervision of normal pregnancy, unspecified, unspecified trimester (principal)
CPT/HCPCS: 76817

== ENCOUNTER → 2023-01-16 | Outpatient (CLI) | payer SELFPAY ==
[2023-01-20 21:07] LABS: Chlamydia By Nucleic Acid AMP Negative (Negative); Gonococcus By Nucleic Acid AMP Negative (Negative)
[2023-01-23 10:12] LABS: HPV Reflexed? NOT INDICATED
== END | disposition home or self-care (01) ==
PROVIDERS: Referring Provider Registered Nurse; Visit Provider Registered Nurse
DX: Z34.90 Encounter for supervision of normal pregnancy, unspecified, unspecified trimester (principal)
CPT/HCPCS: 87086; 87491; 87591; 88175; G0145

== ENCOUNTER → 2023-01-26 | Outpatient (CLI) | payer SELFPAY ==
[2023-01-26 08:29] LABS: Absolute Lymphocyte Count 1.87 X10^3/uL (0.83-4.51); Absolute Neutrophil Count 6.4 X10^3/uL (2.0-7.7); Basophil# 0.02 X10^3/uL; Basophil% 0.2 % (0-1); Eosinophil# 0.01 X10^3/uL; Eosinophils% 0.1 % (0-5); Hematocrit 39.1 % (37-47); Hemoglobin 13.1 g/dL (12.0-15.0); Lymphocyte # 1.87 X10^3/ul (0.83-4.51); Lymphocyte % 21.3 % (19-41); Mean Corp Hgb Conc 33.5 g/dL (32-36); Mean Corpuscular Volume 92.4 fL (81-99); Mean Platelet Vol. 9.3 fl (6.2-12.0); Monocyte# 0.48 X10^3/uL; Monocyte% 5.5 % (0-10); NRBC Flagged by Analyzer 0 % (0-5); Neutrophil # 6.38 X10^3/uL (2.7-7.7); Neutrophil % 72.6 % (47-70); Platelet Count 228 K/mm3 (150-450); RBC Distribution Width CV 12.6 % (11.6-14.6); RBC Distribution Width SD 42.3 fl (35.1-43.9); Red Blood Count 4.23 M/mm3 (4.2-5.4); White Blood Count 8.8 K/mm3 (4.4-11.0)
[2023-01-26 09:50] LABS: HIV - WCH Non-Reactive (Nonreactive); Hepatitis B Surface Antigen Non-Reactive (Nonreactive); Hepatitis C Antibody Non-Reactive (Nonreactive); Rubella IgG Reactive (Nonreactive); Syphilis Antibodies Non-reactive
== END | disposition home or self-care (01) ==
LOC: PAVLAB 07:57
PROVIDERS: Referring Provider Registered Nurse; Visit Provider Registered Nurse
DX: Z34.90 Encounter for supervision of normal pregnancy, unspecified, unspecified trimester (principal)
CPT/HCPCS: 36415; 85025; 86703; 86762; 86780; 86803; 86850; 86900; 86901; 87340

== ENCOUNTER → 2023-02-13 | Outpatient (CLI) | payer OTHER, SELFPAY ==
[2023-02-13 10:51] LABS: Absolute Lymphocyte Count 1.88 X10^3/uL (0.83-4.51); Absolute Neutrophil Count 5.4 X10^3/uL (2.0-7.7); Eosinophil# 0.03 X10^3/uL; Eosinophils% 0.4 % (0-5); Hematocrit 35.3 % (37-47); Hemoglobin 12.3 g/dL (12.0-15.0); Lymphocyte # 1.88 X10^3/ul (0.83-4.51); Lymphocyte % 24.1 % (19-41); Mean Corp Hgb Conc 34.8 g/dL (32-36); Mean Corpuscular Hgb 31.9 pg (27.0-32.0); Mean Corpuscular Volume 91.7 fL (81-99); Mean Platelet Vol. 8.7 fl (6.2-12.0); Monocyte# 0.44 X10^3/uL; Monocyte% 5.6 % (0-10); NRBC Flagged by Analyzer 0 % (0-5); Neutrophil # 5.43 X10^3/uL (2.7-7.7); Neutrophil % 69.6 % (47-70); Platelet Count 217 K/mm3 (150-450); RBC Distribution Width CV 13.1 % (11.6-14.6); RBC Distribution Width SD 43.3 fl (35.1-43.9); Red Blood Count 3.85 M/mm3 (4.2-5.4); White Blood Count 7.8 K/mm3 (4.4-11.0)
[2023-02-13 11:17] LABS: Glucose Challenge Gest 1H 50g 116 mg/dL (70-140)
== END | disposition home or self-care (01) ==
LOC: LAB 10:24
PROVIDERS: Referring Provider Registered Nurse; Visit Provider Registered Nurse
DX: Z86.32 Personal history of gestational diabetes (principal)
CPT/HCPCS: 36415; 82950; 85025

== ENCOUNTER → 2023-04-10 | Outpatient (CLI) | payer SELFPAY ==
--- NOTE | 2023-04-10 13:49 | US_ITS ---
EXAM: US SECOND OR THIRD TRIMESTER , TRANSABDOMINAL CLINICAL INDICATION: , anatomy scan TECHNIQUE: Transabdominal obstetrical ultrasound of the maternal pelvis and a second or third trimester with image documentation. COMPARISON: US 2nd 3rd Tri Transabdominal dated 01/05/2023 FINDINGS: FETUS: Single fetus. HEART RATE: cardiac rate is 144 bpm. PRESENTATION: Variable lie and presentation. PLACENTA: Posterior placenta. The inferior margin of the placenta is 1.3 cm from the internal cervical os. No placenta previa. No abruption. AMNIOTIC FLUID: Amniotic fluid volume is normal. Posterior amniotic band is noted without entrapment of parts. ANATOMY: Normal intracranial structures and cerebellar diameter is 2.2 cm consistent with 20 week 4 day gestation. Normal four-chamber heart. Normal diaphragm, stomach, abdominal wall, cord insertion, three-vessel cord, kidneys and bladder. Normal spine. Normal extremities. Normal facial structures. BIOMETRICS GESTATIONAL AGE: Clinical gestational age is 22 weeks 2 days. Ultrasound gestational age is 21 weeks 2 days. CAROLINA: Clinical CAROLINA is August 12, 2023. EFW: Estimated weight is 425 g. BPD: Biparietal diameter is 5.0 cm. HC: Head circumference is 19.1 cm. AC: Abdominal circumference is 16.4 cm. FL: Femur length is 6.3 cm. MATERNAL: UTERUS: Normal. No myometrial mass. CERVIX: Cervix measures 4.2 cm in length. ADNEXA: Normal. No adnexal masses. FREE FLUID: None. OTHER FINDINGS: Normal interval growth when compared to prior study. US/OB Anatomy w/ Transvaginal IMPRESSION: Single live second trimester intrauterine gestation. Normal anatomy. Electronically Signed: Fco Zelaya MD at 16:32 EDT ,
== END | disposition home or self-care (01) ==
PROVIDERS: Referring Provider Registered Nurse; Visit Provider Registered Nurse
DX: Z34.90 Encounter for supervision of normal pregnancy, unspecified, unspecified trimester (principal)
CPT/HCPCS: 76805; 76817

== ENCOUNTER → 2023-05-08 | Outpatient (CLI) | payer SELFPAY, OTHER ==
[2023-05-08 15:12] LABS: Absolute Lymphocyte Count 1.85 X10^3/uL (0.83-4.51); Absolute Neutrophil Count 8.1 X10^3/uL (2.0-7.7); Basophil# 0.02 X10^3/uL; Basophil% 0.2 % (0-1); Eosinophil# 0.02 X10^3/uL; Eosinophils% 0.2 % (0-5); Hematocrit 38.1 % (37-47); Lymphocyte # 1.85 X10^3/ul (0.83-4.51); Lymphocyte % 17.6 % (19-41); Mean Corp Hgb Conc 34.1 g/dL (32-36); Mean Corpuscular Hgb 32.8 pg (27.0-32.0); Mean Corpuscular Volume 96.2 fL (81-99); Mean Platelet Vol. 9.2 fl (6.2-12.0); Monocyte# 0.49 X10^3/uL; Monocyte% 4.7 % (0-10); NRBC Flagged by Analyzer 0 % (0-5); Neutrophil # 8.08 X10^3/uL (2.7-7.7); Neutrophil % 76.9 % (47-70); Platelet Count 230 K/mm3 (150-450); RBC Distribution Width CV 13.2 % (11.6-14.6); RBC Distribution Width SD 47.1 fl (35.1-43.9); Red Blood Count 3.96 M/mm3 (4.2-5.4); White Blood Count 10.5 K/mm3 (4.4-11.0)
[2023-05-08 15:37] LABS: Glucose Challenge Gest 1H 50g 105 mg/dL (70-140)
[2023-05-08 16:13] LABS: HIV - WCH Non-Reactive (Nonreactive); Syphilis Antibodies Non-reactive
== END | disposition home or self-care (01) ==
LOC: LAB 13:48
PROVIDERS: Referring Provider Advanced Practice Midwife; Visit Provider Advanced Practice Midwife
DX: Z34.90 Encounter for supervision of normal pregnancy, unspecified, unspecified trimester (principal); Z3A.00 Weeks of gestation of pregnancy not specified
CPT/HCPCS: 36415; 82950; 85025; 86703; 86780

== ENCOUNTER → 2023-05-22 | Outpatient (CLI) | payer SELFPAY ==
--- NOTE | 2023-05-22 13:12 | US_ITS ---
STUDY: SECOND AND THIRD TRIMESTER OBSTETRICAL ULTRASOUND - LIMITED REASON FOR EXAM: Female, 28 years old LOW LYING PLACENTA LMP: November 05, 2022. PRIOR ULTRASOUND: Comparison is made with prior study dated April 10, 2023. TECHNIQUE: Transabdominal and Transvaginal TECHNICAL QUALITY: Adequate. FINDINGS: There is a single intrauterine fetus. The fetus is in a breech presentation. There is demonstrated cardiac activity with a heart rate of 141 bpm. There is a normal amniotic fluid volume. The largest amniotic fluid pocket measures 4.6 cm x 2.6 cm. The amniotic fluid index (KADEN) is 15.09 cm. The placenta is posterior in location and is not low lying. The tip of the placenta is a 2.4 cm from the cervical os. There are Grade 0 placental changes. The cervix measures 6 cm in length. BIOMETRY: Age by LMP: 28 weeks, 2 days. CAROLINA by LMP: August 12, 2023. US/OB Limited (No Biometrics) IMPRESSION: Single live uterine gestation with a mean gestational age of 28 weeks and 2 days by LMP. There is no evidence of a low-lying placenta at this time. Electronically Signed: Pranav Connors MD at 12:18 [facility] ,
== END | disposition home or self-care (01) ==
PROVIDERS: Referring Provider Registered Nurse; Visit Provider Registered Nurse
DX: O44.42 Low lying placenta NOS or without hemorrhage, second trimester (principal); Z3A.00 Weeks of gestation of pregnancy not specified
CPT/HCPCS: 76815

== ENCOUNTER → 2023-07-21 | Outpatient (CLI) | payer SELFPAY | END | disposition home or self-care (01) | LOC: LABSPEC 10:05 | PROVIDERS: Visit Provider Nurse Practitioner Women's Health | DX: Z34.90 Encounter for supervision of normal pregnancy, unspecified, unspecified trimester (principal) | CPT/HCPCS: 87081 ==

== ENCOUNTER 2023-08-05 15:42 | Outpatient (CLI) | payer SELFPAY ==
[2023-08-05 15:47] VITALS: BP 127/80; PULSE 95
[2023-08-05 15:50] VITALS: TEMP 36.6
[2023-08-05 16:00] VITALS: BMI 25.8
[2023-08-05 16:45] VITALS: BP 120/77; PULSE 74
--- NOTE | 2023-08-05 17:13 | OB.TRI.HP_ITS ---
HPI - General HPI Narrative RAY GONG, is a 28 y/o @ 39 weeks who was sent to L&D for monitoring due to audible decels in the office and inconclusice nst. NST here is reactive and without decelerations. She is starting to feel contractions but does not think she is in labor. Maternal Data Information CAR[place] Calculator Estimated Delivery Date Method Current WG Current Estimate 08/12/23 LMP (Certain) 39w 0d Other Estimates 08/17/23 Ultrasound #1 38w 2d PFSH PFSH Medical History Anxiety Family history of cleft palate Family history of congenital heart defect Family history of neural tube defect H/O maternal blood transfusion, currently (~08/2019) H/O hemorrhage, currently Hyperglycemia in depression hemorrhage Home Medications vits,calcium no.78-iron fumarate-folic acid 29 mg-1 mg tablet 1 tab PO DAILY 04/14/18 [History Last Taken 04/09/18 10:00] Allergy/AdvReac Type Severity Reaction Status Date / Time No Known Allergies Allergy Verified 07/30/23 13:26 Family History Mother Breast cancer Grandfather Cancer Grandmother Breast cancer Surgical History H/O dilation and curettage (~08/2018) Social History household members: family housing: house number of children: 1 Smoking Status: Never smoker second hand exposure: No alcohol intake: never substance use type: does not use seatbelt use: always do you feel safe at home: Yes additional social history: Intuity Medical History 3 Elective abortions Hx Para 2 Spontaneous abortions Hx # Term Pregnancies Ectopic pregnancies Hx # Pregnancies Multiple births # of living children 2 Past Pregnancies Del. Date Name GA/Weeks Outcome Route Bth Weight Infant Gen Labor Lgth Anesthesia Del Locatn Provider FOB 08/19/18 Roland 40 live - full term 8lbs 15oz Male 8 h ours none Birthing [facility] in [place] 11/19/20 Tl 39 live - full term Male [facility] Delivery Date: 08/19/18 Last Updated by: Elise Carpenter hemorrhage- retained placenta, post dilation and curettage; blood transfusion- received 2 units of blood at [facility] Visit Details Expected Delivery Route/Plan Labor Preferences- CB/BF classes: na labor support person: Ameena labor intervention preferences: unmedicated pain management options preferred: [] cut cord/dad catch: [] : yes PP control planned: condoms discussed possible routes of delivery and associated risks: discussed special requests: [] Plans Covid status: declines Flu vaccine: declines Tdap vaccine: declines Rhogam: na LARC form signed: completed Problem list reviewed and updated with the most current plan of care details and appropriate orders placed. Relevant counseling for the gestational age provided. Continue routine care and follow up unless otherwise noted in visit notes/problem list details OB Flowsheet Initial Weight: 127 lb Date -?-?-?-?-?-?-?-?-?-?-?-?- EGA Weight BP Urine Prot -?-?-?-?-?-?-?-?-?-?-?-?- Glucose FHR FuHt Pres Dilation -?-?-?-?-?-?-?-?-?-?-?-?- Effaced St Visit Note 01/16/23 -?-?-?-?-?-?-?-?-?-?-?--?- 10w 2d 127 lb (+0 oz) 110/62 -?-?-?-?-?-?-?-?-?-?-?-?- 175 -?-?-?-?-?-?-?-?-?-?-?-?- LC- early trimes ter us con with LMP. [place] 08/11/2023. early glucose for hx of gestational diabetes.declines nipt. 02/13/23 -?-?-?-?-?-?-?-?-?-?-?-?- 14w 2d 130 lb 4 oz (+3 lb 4 oz) 116/72 -?-?-?-?-?-?-?-?-?-?-?-?- 150 -?-?-?-?-?-?-?-?-?-?-?-?- LC- no vb/crampi ng. declines afp. passed 1 hour glucose. LC- no vb/cramping. declines afp. passed 1 hour glucose. [facility] for anatomy scan. 03/13/23 -?-?-?-?-?-?-?-?-?-?-?-?- 18w 2d 132 lb 6 oz (+5 lb 6 oz) 110/74 Negative -?-?-?-?-?-?-?-?-?-?-?-?- Negative 154 -?-?-?-?-?-?-?-?-?-?-?-?- LC- no vb/occ cr amping when over active. increasing PO hydration/rest. 04/10/23 -?-?-?-?-?-?-?-?-?-?-?-?- 22w 2d 137 lb (+10 lb) 104/70 Negative -?-?-?-?-?-?-?-?-?-?-?-?- Negative 150 22 -?-?-?-?-?-?-?-?-?--?-?-?- KW-no vb/crampin bassem blackwell. anatomy scan today. GCT next visit. 05/08/23 -?-?-?-?-?-?-?-?-?-?-?-?- 26w 2d 140 lb 8 oz (+13 lb 8 oz) 112/64 -?-?-?-?-?-?-?-?-?-?-?-?- 138 26 -?-?-?-?-?-?-?-?-?-?-?-?- LC- no vb/ctx/lo f. valentín blackwell. 28 week labs pending. 05/22/23 -?-?-?-?-?-?-?-?-?-?-?-?- 28w 2d 141 lb 8 oz (+14 lb 8 oz) 95/61 Negative -?-?-?-?-?-?-?-?-?-?-?-?- Negative 135 28 -?-?-?-?-?-?-?--?-?-?-?-?- LC- no vb/ctx/lo f.good fm. passed 28 week labs. LC- no vb/ctx/lof.good fm. p assed 28 week labs. larc complete, declines tdap.no concerns. 06/05/23 -?-?-?-?-?--?-?-?-?-?-?-?- 30w 2d 145 lb 6 oz (+18 lb 6 oz) 94/62 Negative -?-?-?-?-?-?-?-?-?-?-?-?- Negative 140 30 -?-?-?-?-?-?-?-?-?-?-?-?- SM- no vb lof go od fm no regular ctx 06/19/23 -?-?-?-?-?-?-?-?-?-?-?-?- 32w 2d 144 lb (+17 lb) 91/61 Negative -?-?-?-?-?-?--?-?-?-?-?-?- Negative 157 32 -?-?-?-?-?-?-?-?-?-?-?-?- JV- no lof, vagi nal bleeding or dec fm. 07/01/23 -?-?-?-?-?-?-?-?-?-?-?-?- 34w 0d 145 lb 4 oz (+18 lb 4 oz) 103/68 Negative -?-?-?-?-?-?-?-?-?-?-?-?- Negative 138 34 -?-?-?-?-?-?-?-?-?-?-?-?- LC- no vb/ctx/lo f. good fm. no concerns. 07/21/23 -?-?-?-?-?-?-?-?-?-?-?-?- 36w 6d 148 lb (+21 lb) 110/66 Negative -?-?-?-?-?-?-?-?-?-?-?-?- Negative 141 35 Cephalic 1 -?-?-?-?-?-?-?-?-?-?-?-?- 50 -3 MH-No VB, LOF. Good FM. Irreg CTX. GBS 07/30/23 -?-?-?-?-?-?-?-?-?-?-?-?- 38w 1d 148 lb (+21 lb) 106/63 Negative -?-?-?-?-?-?-?-?-?-?-?-?- Negative 160 37 Cephalic 2 -?-?-?-?-?-?-?-?-?-?-?-?- 70 -2 SM- irregu lar ctx no vb lof good fm 08/05/23 -?-?-?-?-?-?-?-?-?-?-?-?- 39w 0d 149 lb 2 oz (+22 lb 2 oz) 119/67 Negative -?-?-?-?-?-?-?-?-?-?-?-?- Negative 155 38 Cephalic 3 -?-?-?-?-?-?-?-?-?-?-?-?- 70 -2 JV- no lof , vaginal bleeding, or dec fm. KADEN is 8, audible decel noted , NST: JV- no lof, vaginal bleeding , or dec fm. KADEN is 8, audible decel noted , NST: shows marked variability but 3 separate times when the monitor was either off or the heart rate was in the 90's. sending to L&D now for further work up and monitoring. ROS Constitutional Constitutional: Reports systems reviewed and no addt'l complaints, except as documented Gastrointestinal Gastrointestinal: Denies bloating, constipation, cramping, diarrhea, nausea or vomiting Genitourinary Genitourinary: Reports other Details: Denies vaginal odor, vaginal bleeding, or vaginal discharge ; Denies difficulty urinating or flank pain Physical Exam HEENT normocephalic Resp normal respiratory effort and normal air movement no CVA tenderness Extremity normal to inspection General Extremity: edema bilateral (trace ) NST FHR Rate Baby A Baseline: 120 Variability:: Moderate Accelerations:: 15 x 15 Decelerations:: None NST Reactive:: Yes FHR Category:: Category I Assessment & Plan (1) History of hemorrhage: COMMENT: d/t retained placenta. Required GET from birthing center to hospital, 2 U PRBC and D&C. (2) : QUALIFIERS: Weeks of gestation: 39 weeks Qualified Code(s): Z3A.39 - 39 weeks gestation of COMMENT: neg GBS. declines nipt and carrier. declines afp., nl 3 HR GTT and anatomy. (3) Supervision of normal : QUALIFIERS: Normal : other normal Trimester: third trimester Qualified Code(s): Z34.83 - Encounter for supervision of other normal , third trimester COMMENT: PRR CAROLINA 08/11/2023 Tl Diaz. sp: Ameena. PLAN: Plan false decelerations heard in office, likely was maternal. Has been on L&D for over an hour and has a cat1 tracing ok to dc to home now. return if contractions increase. Charges/Coding Multi Select Codes Visit Charges Office Visit/Consults: 96818 OV L3 Est 20min Urinary/Genital Urinary/Genital CPT Codes: 44975-16 non-stress test Interp
--- NOTE | 2023-08-05 17:13 | OB.TRI.NOTE ---
HPI - General HPI Narrative RAY GONG, is a 28 y/o @ 39 weeks who was sent to L&D for monitoring due to audible decels in the office and inconclusice nst. NST here is reactive and without decelerations. She is starting to feel contractions but does not think she is in labor. Maternal Data Information [place] Calculator Estimated Delivery Date Method Current WG Current Estimate 08/12/23 LMP (Certain) 39w 0d Other Estimates 08/17/23 Ultrasound #1 38w 2d PFSH PFS Medical History Anxiety Family history of cleft palate Family history of congenital heart defect Family history of neural tube defect H/O maternal blood transfusion, currently (~08/2019) H/O hemorrhage, currently Hyperglycemia in depression hemorrhage Home Medications vits,calcium no.78-iron fumarate-folic acid 29 mg-1 mg tablet 1 tab PO DAILY 04/14/18 [History Last Taken 04/09/18 10:00] Allergy/AdvReac Type Severity Reaction Status Date / Time No Known Allergies Allergy Verified 07/30/23 13:26 Family History Mother Breast cancer Grandfather Cancer Grandmother Breast cancer Surgical History H/O dilation and curettage (~08/2018) Social History household members: family housing: house number of children: 1 Smoking Status: Never smoker second hand exposure: No alcohol intake: never substance use type: does not use seatbelt use: always do you feel safe at home: Yes additional social history: [employer] History 3 Elective abortions Hx Para 2 Spontaneous abortions Hx # Term Pregnancies Ectopic pregnancies Hx # Pregnancies Multiple births # of living children 2 Past Pregnancies Del. Date Name GA/Weeks Outcome Route Bth Weight Infant Gen Labor Lgth Anesthesia Del Locatn Provider FOB 08/19/18 Roland 40 live - full term 8lbs 15oz Male 8 hours none Birthing Center in [place] 11/19/20 Tl 39 live - full term Male [facility] Shaina Delivery Date: 08/19/18 Last Updated by: Elise Carpenter hemorrhage- retained placenta, post dilation and curettage; blood transfusion- received 2 units of blood at [facility] Visit Details Expected Delivery Route/Plan Labor Preferences- CB/BF classes: na labor support person: Ameena labor intervention preferences: unmedicated pain management options preferred: [] cut cord/dad catch: [] : yes PP control planned: condoms discussed possible routes of delivery and associated risks: discussed special requests: [] Plans Covid status: declines Flu vaccine: declines Tdap vaccine: declines Rhogam: na LARC form signed: completed Problem list reviewed and updated with the most current plan of care details and appropriate orders placed. Relevant counseling for the gestational age provided. Continue routine care and follow up unless otherwise noted in visit notes/problem list details OB Flowsheet Initial Weight: 127 lb Date <del>?</del> EGA Weight BP Urine Prot <del>?</del> Glucose FHR FuHt Pres Dilation <del>?</del> Effaced St Visit Note 01/16/23 <del>?</del> 10w 2d 127 lb (+0 oz) 110/62 <del>?</del> 175 <del>?</del> LC- early trimester us con with LMP. [place] 08/11/2023. early glucose for hx of gestational diabetes.declines nipt. 02/13/23 <del>?</del> 14w 2d 130 lb 4 oz (+3 lb 4 oz) 116/72 <del>?</del> 150 <del>?</del> LC- no vb/cramping. declines afp. passed 1 hour glucose. LC- no vb/cramping. declines afp. passed 1 hour glucose. [facility] for anatomy scan. 03/13/23 <del>?</del> 18w 2d 132 lb 6 oz (+5 lb 6 oz) 110/74 Negative <del>?</del> Negative 154 <del>?</del> LC- no vb/occ cramping when over active. increasing PO hydration/rest. 04/10/23 <del>?</del> 22w 2d 137 lb (+10 lb) 104/70 Negative <del>?</del> Negative 150 22 <del>?</del> KW-no vb/cramping. good fm. anatomy scan today. GCT next visit. 05/08/23 <del>?</del> 26w 2d 140 lb 8 oz (+13 lb 8 oz) 112/64 <del>?</del> 138 26 <del>?</del> LC- no vb/ctx/lof. good fm. 28 week labs pending. 05/22/23 <del>?</del> 28w 2d 141 lb 8 oz (+14 lb 8 oz) 95/61 Negative <del>?</del> Negative 135 28 <del>?</del> LC- no vb/ctx/lof.good fm. passed 28 week labs. LC- no vb/ctx/lof.good fm. passed 28 week labs. larc complete, declines tdap.no concerns. 06/05/23 <del>?</del> 30w 2d 145 lb 6 oz (+18 lb 6 oz) 94/62 Negative <del>?</del> Negative 140 30 <del>?</del> SM- no vb lof good fm no regular ctx 06/19/23 <del>?</del> 32w 2d 144 lb (+17 lb) 91/61 Negative <del>?</del> Negative 157 32 <del>?</del> JV- no lof, vaginal bleeding or dec fm. 07/01/23 <del>?</del> 34w 0d 145 lb 4 oz (+18 lb 4 oz) 103/68 Negative <del>?</del> Negative 138 34 <del>?</del> LC- no vb/ctx/lof. good fm. no concerns. 07/21/23 <del>?</del> 36w 6d 148 lb (+21 lb) 110/66 Negative <del>?</del> Negative 141 35 Cephalic 1 <del>?</del> 50 -3 MH-No VB, LOF. Good FM. Irreg CTX. GBS 07/30/23 <del>?</del> 38w 1d 148 lb (+21 lb) 106/63 Negative <del>?</del> Negative 160 37 Cephalic 2 <del>?</del> 70 -2 SM- irregular ctx no vb lof good fm 08/05/23 <del>?</del> 39w 0d 149 lb 2 oz (+22 lb 2 oz) 119/67 Negative <del>?</del> Negative 155 38 Cephalic 3 <del>?</del> 70 -2 JV- no lof, vaginal bleeding, or dec fm. KADEN is 8, audible decel noted , NST: JV- no lof, vaginal bleeding, or dec fm. KADEN is 8, audible decel noted , NST: shows marked variability but 3 separate times when the monitor was either off or the heart rate was in the 90's. sending to L&D now for further work up and monitoring. ROS Constitutional Constitutional: Reports systems reviewed and no addt'l complaints, except as documented Gastrointestinal Gastrointestinal: Denies bloating, constipation, cramping, diarrhea, nausea or vomiting Genitourinary Genitourinary: Reports other Details: Denies vaginal odor, vaginal bleeding, or vaginal discharge ; Denies difficulty urinating or flank pain Physical Exam HEENT normocephalic Resp normal respiratory effort and normal air movement no CVA tenderness Extremity normal to inspection General Extremity: edema bilateral (trace ) NST FHR Rate Baby A Baseline: 120 Variability:: Moderate Accelerations:: 15 x 15 Decelerations:: None NST Reactive:: Yes FHR Category:: Category I Assessment & Plan (1) History of hemorrhage: COMMENT: d/t retained placenta. Required GET from birthing center to hospital, 2 U PRBC and D&C. (2) : QUALIFIERS: Weeks of gestation: 39 weeks Qualified Code(s): Z3A.39 - 39 weeks gestation of COMMENT: neg GBS. declines nipt and carrier. declines afp., nl 3 HR GTT and anatomy. (3) Supervision of normal : QUALIFIERS: Normal : other normal Trimester: third trimester Qualified Code(s): Z34.83 - Encounter for supervision of other normal , third trimester COMMENT: PRR [place] 08/11/2023 Tl Diaz. sp: Ameena. PLAN: Plan false decelerations heard in office, likely was maternal. Has been on L&D for over an hour and has a cat1 tracing ok to dc to home now. return if contractions increase. Charges/Coding Multi Select Codes Visit Charges Office Visit/Consults: 91046 OV L3 Est 20min Urinary/Genital Urinary/Genital CPT Codes: 50306-52 non-stress test Interp
== END 2023-08-05 17:20 | disposition home or self-care (01) ==
LOC: WPOUT 15:42 → WP 15:43
PROVIDERS: Referring Provider Obstetrics & Gynecology; Visit Provider Obstetrics & Gynecology
DX: O36.8330 Maternal care for abnormalities of the fetal heart rate or rhythm, third trimester, not applicable or unspecified (principal); Z3A.39 39 weeks gestation of pregnancy; Z87.59 Personal history of other complications of pregnancy, childbirth and the puerperium
CPT/HCPCS: 59025; 59050; 99221; G0378

== ENCOUNTER 2023-08-09 09:38 | Outpatient (CLI) | payer OTHER, SELFPAY ==
[2023-08-09 09:57] VITALS: BP 117/73; PULSE 76
[2023-08-09 10:08] VITALS: PULSE 89; O2SAT 98
[2023-08-09 10:10] VITALS: TEMP 37; O2SAT 99
[2023-08-09 10:27] VITALS: BMI 25.7
[2023-08-09 10:32] LABS: ROM Internal Control Test YES-OK TO RESULT pt. (Internal QC); ROM Patient Test Negative (Negative)
--- NOTE | 2023-08-10 14:05 | OB.TRI.HP_ITS ---
HPI - General General Date of Service: 08/09/23 HPI Narrative RAY GONG, is a 28 F who presents for ROM check at 39.4 weeks. denies vb/ctx. good fm. Maternal Data Information [place] Calculator Estimated Delivery Date Method Current WG Current Estimate 08/12/23 LMP (Certain) 39w 5d Other Estimates 08/17/23 Ultrasound #1 39w 0d PFSH PFSH Medical History Anxiety Family history of cleft palate Family history of congenital heart defect Family history of neural tube defect H/O maternal blood transfusion, currently (~08/2019) H/O hemorrhage, currently Hyperglycemia in depression hemorrhage Home Medications vits,calcium no.78-iron fumarate-folic acid 29 mg-1 mg tablet 1 tab PO DAILY 04/14/18 [History Last Taken 04/09/18 10:00] Allergy/AdvReac Type Severity Reaction Status Date / Time No Known Allergies Allergy Verified 08/09/23 10:30 Family History Mother Breast cancer Grandfather Cancer Grandmother Breast cancer Surgical History H/O dilation and curettage (~08/2018) Social History household members: family housing: house number of children: 1 Smoking Status: Never smoker second hand exposure: No alcohol intake: never substance use type: does not use seatbelt use: always do you feel safe at home: Yes additional social history: [employer] History 3 Elective abortions Hx Para 2 Spontaneous abortions Hx # Term Pregnancies Ectopic pregnancies Hx # Pregnancies Multiple births # of living children 2 Past Pregnancies Del. Date Name GA/Weeks Outcome Route Bth Weight Infant Gen Labor Lgth Anesthesia Del Locatn Provider FOB 08/19/18 Roland 40 live - full term 8lbs 15oz Male 8 h ours none Birthing Center in [place] 11/19/20 Tl 39 live - full term Male [facility] Marcanthony Delivery Date: 08/19/18 Last Updated by: Elise Carpenter hemorrhage- retained placenta, post dilation and curettage; blood transfusion- received 2 units of blood at [facility] Visit Details Expected Delivery Route/Plan Labor Preferences- CB/BF classes: na labor support person: Ameena labor intervention preferences: unmedicated pain management options preferred: [] cut cord/dad catch: [] : yes PP control planned: condoms discussed possible routes of delivery and associated risks: discussed special requests: [] Plans Covid status: declines Flu vaccine: declines Tdap vaccine: declines Rhogam: na LARC form signed: completed Problem list reviewed and updated with the most current plan of care details and appropriate orders placed. Relevant counseling for the gestational age provided. Continue routine care and follow up unless otherwise noted in visit notes/problem list details OB Flowsheet Initial Weight: 127 lb Date -?--?-?-?-?-?-?-?-?-?-?-?- EGA Weight BP Urine Prot -?-?-?-?-?-?-?-?-?-?-?-?- Glucose FHR FuHt Pres Dilation -?-?-?-?-?-?-?-?-?-?-?-?- Effaced St Visit Note 01/16/23 -?-?-?-?-?-?-?-?-?-?-?-?- 10w 2d 127 lb (+0 oz) 110/62 -?-?-?-?-?-?-?-?-?-?-?-?- 175 -?-?-?-?-?-?-?-?-?-?-?-?- LC- early trimes ter us con with LMP. [place] 08/11/2023. early glucose for hx of gestational diabetes.declines nipt. 02/13/23 -?-?-?-?-?-?-?-?-?-?-?-?- 14w 2d 130 lb 4 oz (+3 lb 4 oz) 116/72 -?-?-?-?-?-?-?-?-?-?-?-?- 150 -?-?-?-?-?-?-?-?-?-?-?-?- LC- no vb/crampi ng. declines afp. passed 1 hour glucose. LC- no vb/cramping. declines afp. passed 1 hour glucose. [facility] for anatomy scan. 03/13/23 -?-?-?-?-?-?-?-?-?-?-?-?- 18w 2d 132 lb 6 oz (+5 lb 6 oz) 110/74 Negative -?-?-?-?-?-?-?-?-?-?-?-?- Negative 154 -?-?--?-?-?-?-?-?-?-?-?-?- LC- no vb/occ cr amping when over active. increasing PO hydration/rest. 04/10/23 -?-?-?-?-?-?-?-?-?-?-?-?- 22w 2d 137 lb (+10 lb) 104/70 Negative -?-?-?-?-?-?-?-?-?-?-?-?- Negative 150 22 -?-?-?-?-?-?-?-?-?-?-?-?- KW-no vb/crampin gPauline good fm. anatomy scan today. GCT next visit. 05/08/23 -?-?-?-?-?-?-?-?-?-?-?-?- 26w 2d 140 lb 8 oz (+13 lb 8 oz) 112/64 -?-?-?-?-?-?-?-?-?-?-?-?- 138 26 -?-?-?-?-?-?-?-?-?-?-?-?- LC- no vb/ctx/lo f. good fm. 28 week labs pending. 05/22/23 -?-?-?-?-?-?-?-?-?-?-?-?- 28w 2d 141 lb 8 oz (+14 lb 8 oz) 95/61 Negative -?-?-?-?-?-?-?-?-?-?-?-?- Negative 135 28 -?-?-?-?-?-?-?-?-?-?-?-?- LC- no vb/ctx/lo f.good fm. passed 28 week labs. LC- no vb/ctx/lof.good fm. p assed 28 week labs. larc complete, declines tdap.no concerns. 06/05/23 -?-?-?-?-?-?-?-?-?-?-?-?- 30w 2d 145 lb 6 oz (+18 lb 6 oz) 94/62 Negative -?-?-?-?-?-?-?-?-?-?-?-?- Negative 140 30 -?-?-?-?-?-?-?-?-?-?-?-?- SM- no vb lof go od fm no regular ctx 06/19/23 -?-?-?-?-?-?-?-?-?-?-?-?- 32w 2d 144 lb (+17 lb) 91/61 Negative -?-?-?-?-?-?-?-?-?-?-?-?- Negative 157 32 -?-?-?-?-?-?-?-?-?-?-?-?- JV- no lof, vagi nal bleeding or dec fm. 07/01/23 -?-?-?-?-?-?-?-?-?-?-?-?- 34w 0d 145 lb 4 oz (+18 lb 4 oz) 103/68 Negative -?-?-?-?-?-?-?-?-?-?-?-?- Negative 138 34 -?-?-?-?-?-?-?-?-?-?-?-?- LC- no vb/ctx/lo f. good fm. no concerns. 07/21/23 -?-?-?-?-?-?-?-?-?-?-?-?- 36w 6d 148 lb (+21 lb) 110/66 Negative -?-?-?-?-?-?-?-?-?-?-?-?- Negative 141 35 Cephalic 1 -?-?-?-?-?-?-?-?-?-?-?-?- 50 -3 -No VB, LOF. Good FM. Irreg CTX. GBS 07/30/23 -?-?-?-?-?-?-?-?-?-?-?-?- 38w 1d 148 lb (+21 lb) 106/63 Negative -?-?-?-?-?-?-?-?-?-?--?-?- Negative 160 37 Cephalic 2 -?-?-?-?-?-?-?-?-?-?-?-?- 70 -2 SM- irregu lar ctx no vb lof good fm 08/05/23 -?-?-?-?-?-?-?-?-?-?-?-?- 39w 0d 149 lb 2 oz (+22 lb 2 oz) 119/67 Negative -?-?-?-?-?-?-?-?-?-?-?-?- Negative 155 38 Cephalic 3 -?-?-?-?-?-?-?-?-?-?-?-?- 70 -2 JV- no lof , vaginal bleeding, or dec fm. KDAEN is 8, audible decel noted , NST: JV- no lof, vaginal bleeding , or dec fm. KADEN is 8, audible decel noted , NST: shows marked variability but 3 separate times when the monitor was either off or the heart rate was in the 90's. sending to L&D now for further work up and monitoring. NST FHR Rate Baby A Baseline: 125 Variability:: Moderate Accelerations:: 15 x 15 Decelerations:: None NST Reactive:: Yes FHR Category:: Category I Assessment & Plan (1) No leakage of amniotic fluid into vagina: COMMENT: ROM plus negative. cat 1 tracing. d/c home PLAN: Plan Patient presents for triage evaluation secondary to rule out LOF. rom plus n egative FHT: Moderate variability reactive no decelerations category I tracing [place]: no Contractions Assessment and plan: Reactive NST, reassuring maternal and status patient discharged to home to follow-up in office this week. See problem list details for additional plan information. Charges/Coding Procedures Urinary/Genital 52xxx-59xxx: 93041-74 non-stress test Interp
--- NOTE | 2023-08-10 14:05 | OB.TRI.NOTE ---
HPI - General General Date of Service: 08/09/23 HPI Narrative RAY GONG, is a 28 F who presents for ROM check at 39.4 weeks. denies vb/ctx. good fm. Maternal Data Information [place] Calculator Estimated Delivery Date Method Current WG Current Estimate 08/12/23 LMP (Certain) 39w 5d Other Estimates 08/17/23 Ultrasound #1 39w 0d PFSH PFSH Medical History Anxiety Family history of cleft palate Family history of congenital heart defect Family history of neural tube defect H/O maternal blood transfusion, currently (~08/2019) H/O hemorrhage, currently Hyperglycemia in depression hemorrhage Home Medications vits,calcium no.78-iron fumarate-folic acid 29 mg-1 mg tablet 1 tab PO DAILY 04/14/18 [History Last Taken 04/09/18 10:00] Allergy/AdvReac Type Severity Reaction Status Date / Time No Known Allergies Allergy Verified 08/09/23 10:30 Family History Mother Breast cancer Grandfather Cancer Grandmother Breast cancer Surgical History H/O dilation and curettage (~08/2018) Social History household members: family housing: house number of children: 1 Smoking Status: Never smoker second hand exposure: No alcohol intake: never substance use type: does not use seatbelt use: always do you feel safe at home: Yes additional social history: [employer] History 3 Elective abortions Hx Para 2 Spontaneous abortions Hx # Term Pregnancies Ectopic pregnancies Hx # Pregnancies Multiple births # of living children 2 Past Pregnancies Del. Date Name GA/Weeks Outcome Route Bth Weight Infant Gen Labor Lgth Anesthesia Del Locatn Provider FOB 08/19/18 Roland 40 live - full term 8lbs 15oz Male 8 hours none Birthing Center in [place] 11/19/20 Tl 39 live - full term Male [facility] Marcanthony Delivery Date: 08/19/18 Last Updated by: Elise Carpenter hemorrhage- retained placenta, post dilation and curettage; blood transfusion- received 2 units of blood at [facility] Visit Details Expected Delivery Route/Plan Labor Preferences- CB/BF classes: na labor support person: Ameena labor intervention preferences: unmedicated pain management options preferred: [] cut cord/dad catch: [] : yes PP control planned: condoms discussed possible routes of delivery and associated risks: discussed special requests: [] Plans Covid status: declines Flu vaccine: declines Tdap vaccine: declines Rhogam: na LARC form signed: completed Problem list reviewed and updated with the most current plan of care details and appropriate orders placed. Relevant counseling for the gestational age provided. Continue routine care and follow up unless otherwise noted in visit notes/problem list details OB Flowsheet Initial Weight: 127 lb Date <del>?</del> EGA Weight BP Urine Prot <del>?</del> Glucose FHR FuHt Pres Dilation <del>?</del> Effaced St Visit Note 01/16/23 <del>?</del> 10w 2d 127 lb (+0 oz) 110/62 <del>?</del> 175 <del>?</del> LC- early trimester us con with LMP. [place] 08/11/2023. early glucose for hx of gestational diabetes.declines nipt. 02/13/23 <del>?</del> 14w 2d 130 lb 4 oz (+3 lb 4 oz) 116/72 <del>?</del> 150 <del>?</del> LC- no vb/cramping. declines afp. passed 1 hour glucose. LC- no vb/cramping. declines afp. passed [address] [facility] for anatomy scan. 03/13/23 <del>?</del> 18w 2d 132 lb 6 oz (+5 lb 6 oz) 110/74 Negative <del>?</del> Negative 154 <del>?</del> LC- no vb/occ cramping when over active. increasing PO hydration/rest. 04/10/23 <del>?</del> 22w 2d 137 lb (+10 lb) 104/70 Negative <del>?</del> Negative 150 22 <del>?</del> KW-no vb/cramping. good fm. anatomy scan today. GCT next visit. 05/08/23 <del>?</del> 26w 2d 140 lb 8 oz (+13 lb 8 oz) 112/64 <del>?</del> 138 26 <del>?</del> LC- no vb/ctx/lof. good fm. 28 week labs pending. 05/22/23 <del>?</del> 28w 2d 141 lb 8 oz (+14 lb 8 oz) 95/61 Negative <del>?</del> Negative 135 28 <del>?</del> LC- no vb/ctx/lof.good fm. passed 28 week labs. LC- no vb/ctx/lof.good fm. passed 28 week labs. larc complete, declines tdap.no concerns. 06/05/23 <del>?</del> 30w 2d 145 lb 6 oz (+18 lb 6 oz) 94/62 Negative <del>?</del> Negative 140 30 <del>?</del> SM- no vb lof good fm no regular ctx 06/19/23 <del>?</del> 32w 2d 144 lb (+17 lb) 91/61 Negative <del>?</del> Negative 157 32 <del>?</del> JV- no lof, vaginal bleeding or dec fm. 07/01/23 <del>?</del> 34w 0d 145 lb 4 oz (+18 lb 4 oz) 103/68 Negative <del>?</del> Negative 138 34 <del>?</del> LC- no vb/ctx/lof. good fm. no concerns. 07/21/23 <del>?</del> 36w 6d 148 lb (+21 lb) 110/66 Negative <del>?</del> Negative 141 35 Cephalic 1 <del>?</del> 50 -3 MH-No VB, LOF. Good FM. Irreg CTX. GBS 07/30/23 <del>?</del> 38w 1d 148 lb (+21 lb) 106/63 Negative <del>?</del> Negative 160 37 Cephalic 2 <del>?</del> 70 -2 SM- irregular ctx no vb lof good fm 08/05/23 <del>?</del> 39w 0d 149 lb 2 oz (+22 lb 2 oz) 119/67 Negative <del>?</del> Negative 155 38 Cephalic 3 <del>?</del> 70 -2 JV- no lof, vaginal bleeding, or dec fm. KADEN is 8, audible decel noted , NST: JV- no lof, vaginal bleeding, or dec fm. KADEN is 8, audible decel noted , NST: shows marked variability but 3 separate times when the monitor was either off or the heart rate was in the 90's. sending to L&D now for further work up and monitoring. NST FHR Rate Baby A Baseline: 125 Variability:: Moderate Accelerations:: 15 x 15 Decelerations:: None NST Reactive:: Yes FHR Category:: Category I Assessment & Plan (1) No leakage of amniotic fluid into vagina: COMMENT: ROM plus negative. cat 1 tracing. d/c home PLAN: Plan Patient presents for triage evaluation secondary to rule out LOF. rom plus negative FHT: Moderate variability reactive no decelerations category I tracing [place]: no Contractions Assessment and plan: Reactive NST, reassuring maternal and status patient discharged to home to follow-up in office this week. See problem list details for additional plan information. Charges/Coding Procedures Urinary/Genital 52xxx-59xxx: 28343-41 non-stress test Interp
== END 2023-08-09 11:00 | disposition home or self-care (01) ==
LOC: WPOUT 09:40 → WP 09:41
PROVIDERS: Referring Provider Registered Nurse; Visit Provider Registered Nurse
DX: O47.1 False labor at or after 37 completed weeks of gestation (principal); Z3A.39 39 weeks gestation of pregnancy
CPT/HCPCS: 59025; 59050; 84112; 99221; G0378

== ENCOUNTER 2023-08-17 19:55 | Inpatient (IN) | payer SELFPAY, OTHER ==
[2023-08-05 15:50] VITALS: RESP 16
[2023-08-09 10:10] VITALS: RESP 16
[2023-08-17] VITALS (32 sets, daily range): BP systolic 104–123; BP diastolic 57–68; PULSE 65–94; RESP 16–20; TEMP 36.8–37.2; O2SAT 99–100; BMI 25.7
[2023-08-17] MEDS: Lactated Ringers 1,000 ML 200 ML IV (20:00)
[2023-08-17 20:11] LABS: Absolute Neutrophil Count 8.4 X10^3/uL (2.0-7.7); Basophil# 0.02 X10^3/uL; Basophil% 0.2 % (0-1); Eosinophil# 0.02 X10^3/uL; Eosinophils% 0.2 % (0-5); Hematocrit 37.2 % (37-47); Hemoglobin 12.7 g/dL (12.0-15.0); Lymphocyte % 21.1 % (19-41); Mean Corp Hgb Conc 34.1 g/dL (32-36); Mean Corpuscular Hgb 31.8 pg (27.0-32.0); Mean Corpuscular Volume 93.2 fL (81-99); Mean Platelet Vol. 9.2 fl (6.2-12.0); Monocyte# 0.91 X10^3/uL; Monocyte% 7.7 % (0-10); NRBC Flagged by Analyzer 0 % (0-5); Neutrophil # 8.37 X10^3/uL (2.7-7.7); Neutrophil % 70.4 % (47-70); Platelet Count 200 K/mm3 (150-450); Red Blood Count 3.99 M/mm3 (4.2-5.4); White Blood Count 11.9 K/mm3 (4.4-11.0)
[2023-08-17] MEDS: Oxytocin 15 Units/NS 250ml 15 UNITS/250 ML IV.SOLN 83 UNITS IV (20:33)
[2023-08-17] MEDS: Oxytocin 10 UNITS/ML Vial IM (20:35)
[2023-08-17] MEDS: Lidocaine 1% (20 ml mdv) 20 ML Vial INFILT (20:36)
[2023-08-17 20:57] LABS: Syphilis Antibodies Non-reactive
--- NOTE | 2023-08-17 20:59 | HP.PCM.OB_ITS ---
HPI - General General Date of Admission: 08/17/23 HPI Narrative RAY GONG, is a 28 F who presents SROM at 1900 at home. +contractions with worsening intensity, denies vb. good fm. Maternal Data Information CAROLINA Calculator Estimated Delivery Date Method Current WG Current Estimate 08/12/23 LMP (Certain) 40w 5d Other Estimates 08/17/23 Ultrasound #1 40w 0d PFSH PFS Medical History (Updated 08/17/23 @ 21:04 by Irina Barth CNM) Active labor at term Anxiety Family history of cleft palate Family history of congenital heart defect Family history of neural tube defect H/O maternal blood transfusion, currently (~08/2019) H/O hemorrhage, currently Hyperglycemia in depression hemorrhage Home Medications vits,calcium no.78-iron fumarate-folic acid 29 mg-1 mg tablet 1 tab PO DAILY 04/14/18 [History Last Taken 04/09/18 10:00] Allergy/AdvReac Type Severity Reaction Status Date / Time No Known Allergies Allergy Verified 08/12/23 14:16 Family History Mother Breast cancer Grandfather Cancer Grandmother Breast cancer Surgical History H/O dilation and curettage (~08/2018) Social History household members: family housing: house number of children: 1 Smoking Status: Never smoker second hand exposure: No alcohol intake: never substance use type: does not use seatbelt use: always do you feel safe at home: Yes additional social history: [employer] History 3 Elective abortions Hx Para 2 Spontaneous abortions Hx # Term Pregnancies Ectopic pregnancies Hx # Pregnancies Multiple births # of living children 2 Past Pregnancies Del. Date Name GA/Weeks Outcome Route Bth Weight Infant Gen Labor Lgth Anesthesia Del Locatn Provider FOB 08/19/18 Roland 40 live - full term 8lbs 15oz Male 8 h ours none Birthing Center in [place] 11/19/20 Tl 39 live - full term Male [facility] Shaina Delivery Date: 08/19/18 Last Updated by: Elise Carpenter hemorrhage- retained placenta, post dilation and curettage; blood transfusion- received 2 units of blood at [facility] Visit Details Expected Delivery Route/Plan Labor Preferences- CB/BF classes: na labor support person: Ameena labor intervention preferences: unmedicated pain management options preferred: [] cut cord/dad catch: [] : yes PP control planned: condoms discussed possible routes of delivery and associated risks: discussed special requests: [] Plans Covid status: declines Flu vaccine: declines Tdap vaccine: declines Rhogam: na LARC form signed: completed Problem list reviewed and updated with the most current plan of care details and appropriate orders placed. Relevant counseling for the gestational age provided. Continue routine care and follow up unless otherwise noted in visit notes/problem list details OB Flowsheet Initial Weight: 127 lb Date -?-?-?-?-?-?-?-?-?-?-?-?- EGA Weight BP Urine Prot -?-?-?-?-?-?-?-?-?-?-?-?- Glucose FHR FuHt Pres Dilation -?-?-?-?-?-?-?-?-?-?-?-?- Effaced St Visit Note 01/16/23 -?-?-?-?-?-?-?-?-?-?-?-?- 10w 2d 127 lb (+0 oz) 110/62 -?-?-?-?-?-?-?-?-?-?-?-?- 175 -?-?-?-?-?-?-?-?-?-?-?-?- LC- early trimes ter us con with LMP. CAROL[place] 08/11/2023. early glucose for hx of gestational diabetes.declines nipt. 02/13/23 -?-?-?-?-?-?-?-?-?-?-?-?- 14w 2d 130 lb 4 oz (+3 lb 4 oz) 116/72 -?-?-?-?-?-?-?-?-?-?-?-?- 150 -?-?-?-?-?-?-?-?-?-?-?-?- LC- no vb/crampi ng. declines afp. passed 1 hour glucose. LC- no vb/cramping. declines afp. passed 1 hour glucose. [facility] for anatomy scan. 03/13/23 -?-?-?-?-?-?-?-?-?-?-?-?- 18w 2d 132 lb 6 oz (+5 lb 6 oz) 110/74 Negative -?-?-?-?-?-?-?-?-?-?-?-?- Negative 154 -?-?-?-?-?-?-?-?-?-?-?-?- LC- no vb/occ cr amping when over active. increasing PO hydration/rest. 04/10/23 -?--?-?-?-?-?-?-?-?-?-?-?- 22w 2d 137 lb (+10 lb) 104/70 Negative -?-?-?-?-?-?-?-?-?-?-?-?- Negative 150 22 -?-?-?-?-?-?-?-?-?-?-?-?- KW-no vb/crampin g. good fm. anatomy scan today. GCT next visit. 05/08/23 -?-?-?-?-?-?-?-?-?-?-?-?- 26w 2d 140 lb 8 oz (+13 lb 8 oz) 112/64 -?-?-?-?-?-?-?-?-?-?-?-?- 138 26 -?-?-?-?-?-?-?-?-?-?-?-?- LC- no vb/ctx/lo f. good fm. 28 week labs pending. 05/22/23 -?-?-?-?-?-?-?-?--?-?-?-?- 28w 2d 141 lb 8 oz (+14 lb 8 oz) 95/61 Negative -?-?-?-?-?-?-?-?-?-?-?-?- Negative 135 28 -?-?-?-?-?-?-?-?-?-?-?-?- LC- no vb/ctx/lo f.good fm. passed 28 week labs. LC- no vb/ctx/lof.good fm. p assed 28 week labs. larc complete, declines tdap.no concerns. 06/05/23 -?-?-?-?-?-?-?-?-?-?-?-?- 30w 2d 145 lb 6 oz (+18 lb 6 oz) 94/62 Negative -?-?-?-?-?-?-?-?-?-?-?-?- Negative 140 30 -?-?-?-?-?-?-?-?-?-?-?-?- SM- no vb lof go od fm no regular ctx 06/19/23 -?-?-?-?-?-?-?-?-?-?-?-?- 32w 2d 144 lb (+17 lb) 91/61 Negative -?-?-?-?-?-?-?-?-?-?-?-?- Negative 157 32 -?-?-?-?-?-?-?-?-?-?-?-?- JV- no lof, vagi nal bleeding or dec fm. 07/01/23 -?-?-?-?-?-?-?-?-?-?-?-?- 34w 0d 145 lb 4 oz (+18 lb 4 oz) 103/68 Negative -?-?-?-?-?-?-?-?-?-?-?-?- Negative 138 34 -?-?-?-?-?-?-?-?-?-?-?-?- LC- no vb/ctx/lo f. good fm. no concerns. 07/21/23 -?-?-?-?-?-?-?-?-?-?-?-?- 36w 6d 148 lb (+21 lb) 110/66 Negative -?-?-?-?-?-?-?-?-?-?-?-?- Negative 141 35 Cephalic 1 -?-?-?-?-?-?-?-?-?-?-?-?- 50 -3 -No VB, LOF. Good FM. Irreg CTX. GBS 07/30/23 -?-?-?-?-?-?-?-?-?-?-?-?- 38w 1d 148 lb (+21 lb) 106/63 Negative -?-?-?-?-?-?-?-?-?-?-?-?- Negative 160 37 Cephalic 2 -?-?-?-?-?-?-?-?-?-?-?-?- 70 -2 SM- irregu lar ctx no vb lof good fm 08/05/23 -?-?-?-?-?-?-?-?-?-?-?-?- 39w 0d 149 lb 2 oz (+22 lb 2 oz) 119/67 Negative -?-?-?-?-?-?-?-?-?-?-?-?- Negative 155 38 Cephalic 3 -?-?-?-?-?-?-?-?-?-?-?-?- 70 -2 JV- no lof , vaginal bleeding, or dec fm. KADEN is 8, audible decel noted , NST: JV- no lof, vaginal bleeding , or dec fm. KADEN is 8, audible decel noted , NST: shows marked variability but 3 separate times when the monitor was either off or the heart rate was in the 90's. sending to L&D now for further work up and monitoring. 08/12/23 -?-?-?-?-?-?-?-?-?-?-?-?- 40w 0d 150 lb 6 oz (+23 lb 6 oz) 129/78 Negative -?-?-?-?-?-?-?-?-?-?-?-?- Negative 150 39 Cephalic 3 -?-?-?-?-?-?-?-?-?-?-?-?- 70 -2 LC- no lof /vb/ctx. good fm. plan of KADEN/NST next thursday if still with IOL to be set up 08/23 NST FHR Rate Baby A Baseline: 125, broken up tracing Variability:: Moderate Decelerations:: Early FHR Category:: Category I Uterine Activity:: q2 ROS Cardiovascular Cardiovascular: Denies abdominal pain, chest pain, diaphoresis or dyspnea Respiratory/Chest Respiratory/Chest: Denies change in mental status, chest congestion, chest tightness, cough, shortness of breath at rest, shortness of breath with exertion, breast mass, breast pain, breast skin changes, breast swelling, change in breast shape or nipple discharge Genitourinary Genitourinary: Reports change in urinary stream Musculoskeletal Musculoskeletal: Reports none Integumentary Integumentary: Reports none Neurologic Neurologic: Reports none Psychiatric Psychiatric: Reports none Endocrine Endocrinology: Reports none Hematologic/Lymphatic Hematologic/Lymphatic: Reports none Allergic/Immunologic Allergic/Immunologic: Reports none Vital Signs Vital Signs Vital Signs: 08/17/23 20:47 08/17/23 20:47 08/17/23 20:47 Temperature Temperature Source Temporal Pulse Rate 75 Respiratory Rate Blood Pressure 123/59 H BP Systolic 123 BP Diastolic 59 Pulse Ox 08/17/23 20:47 08/17/23 20:47 08/17/23 20:47 Temperature 98.3 F Temperature Source Pulse Rate Respiratory Rate 16 Blood Pressure BP Systolic BP Diastolic Pulse Ox 99 08/17/23 20:56 08/17/23 20:56 Temperature Temperature Source Pulse Rate 88 Respiratory Rate Blood Pressure BP Systolic BP Diastolic Pulse Ox 99 Weight Weight: 150 lb Body Mass Index (BMI) 25.7 Physical Exam Const alert, oriented x3 and no apparent distress General Appearance: cooperative, comfortable and well kempt Orientation / Consciousness: awake and oriented to person Exam Limitations: no limitations HEENT normocephalic Neck full ROM Chest inspection of chest normal Resp normal respiratory effort, normal air movement and no retractions Effort and Inspection: able to speak in complete sentences and symmetric chest movement Cardio regular rate Peripheral Pulses: pulses 2+ throughout GI normal to inspection, nondistended, normoactive bowel sounds Inspection: gravid no CVA tenderness and appearance of the vagina normal External Female Exam: normal appearance of the urethra; Negative for external lesion OB / External & Speculum: external exam normal Manual OB Exam: estimated gestational size appropriate and presentation cephalic Uterus Palpation: Negative for uterus tender Extremity normal to inspection Skin no rashes or lesions noted Neuro deep tendon reflexes 2+ bilaterally and gait normal Motor Exam: strength 5/5 throughout and clonus absent Psych Activity / Motor Behavior: appropriate eye contact Speech: normal speech Labs Labs Labs: Blood Type A POSITIVE Antibody Screen NEGATIVE Hct 37.2 % (37-47) Hgb 12.7 g/dL (12.0-15.0) Obstetrics Ultrasound Syphilis Total Ab Non-reactive Rubella IgG Antibody Reactive (Nonreactive) Hep Bs Antigen Non-Reactive (Nonreactive) Hepatitis C Antibody Non-Reactive (Nonreactive) Chlamydia DNA (GIOVANNA) Negative (Negative) N.gonorrhoeae DNA (GIOVANNA) Negative (Negative) HIV 1&2 Antibody Non-Reactive (Nonreactive) Glucose 1 Hr 50 gm 105 mg/dL (70-140) Rhogam given: No Assessment & Plan (1) SROM (spontaneous rupture of membranes): COMMENT: at 1900 clear. (2) History of hemorrhage: COMMENT: d/t retained placenta. Required GET from birthing center to hospital, 2 U PRBC and D&C. (3) : QUALIFIERS: Weeks of gestation: 40 weeks Qualified Code(s): Z3A.40 - 40 weeks gestation of COMMENT: neg GBS. declines nipt and carrier. declines afp., nl 3 HR GTT and anatomy. (4) Supervision of normal : QUALIFIERS: Normal : other normal Trimester: third trimester Qualified Code(s): Z34.83 - Encounter for supervision of other normal , third trimester COMMENT: PRR CAROLINA 08/11/2023 Tl Diaz. sp: Ameena. (5) Active labor at term: COMMENT: IAL at term. PLAN: Plan Patient presents IAL, plan expectant management for , pitocin/AROM PRN if needed. Pain management: plan unmedicated. GBS negative. Management of any complications: none I [facility] and made any clinically relevant updates. updated on admission, exam and poc. low risk pt, registered midwife as primary management.
--- NOTE | 2023-08-17 21:05 | EX.PCM.OBRPT ---
Assessment & Plan (1) (spontaneous vaginal delivery): Maternal Data Information CAROLINA Calculator Estimated Delivery Date Method Current WG Current Estimate 08/12/23 LMP (Certain) 40w 5d Other Estimates 08/17/23 Ultrasound #1 40w 0d Final CAROLINA: 08/12/23 Final CAROLINA Source: LMP Vaginal Delivery Maternal Presentation Maternal Presentation: Active Labor and Spontaneous Rupture of Membranes Maternal Presentation: at 40.5 in active labor with SROM, moving quickly Operative Information Date of Procedure: 08/17/23 Surgery / Procedure Performed: Spontaneous Vaginal Delivery Type of Anesthesia: Local with 1% Lidocaine Estimated Blood Loss: 400 Time of Delivery: 20:27 Findings Description of Procedure: Patient began pushing and delivered the head in the NESTOR presentation. The head was delivered atraumatically. The anterior and posterior shoulders delivered without complication followed by the rest of the infant and the infant was placed on the maternal abdomen. Delayed cord clamping was employed for approximately 60 seconds. Cord was clamped and cut and gentle traction was applied to the cord and the placenta delivered spontaneously immediately following it was noted to be intact with three-vessel cord. The perineum and vagina were inspected and noted to have small 1st degree laceration repaired with 3-0. EBL was 400cc. Patient and tolerated delivery well. Presentation: Vertex Amniotic Membrane Rupture Type: Spontaneous Time of Membrane Rupture: 1900 Amniotic Fluid Description: Clear Placental Delivery Description: Spontaneous Placenta Disposition: [facility] Cord Vessel Description: 3 Vessels Cord Entanglement: None Infant A Gender: Male (1 minute): 8 (5 minute): 9 Post Vaginal Delivery Medications Given After Delivery: IV Pitocin and IM Pitocin Laceration: 1st degree Complication Complications: None Procedures Urinary/Genital [id number]: [id number] Vaginal Delivery [facility]
--- NOTE | 2023-08-17 21:08 | DCINST_ITS ---
Discharge Instructions Diet Discharge Diet: No restrictions Activity Discharge Activity: May Not Drive and May Shower May resume sexual activity in: 6 weeks Weight Bearing Status: Full weight bearing Dressing / Incision Call your doctor if your incision/area has: Sudden Increased Bleeding, Increased Pain/ Swelling and Foul Smelling Discharge Call your doctor if you observe: Fever of 101 or Higher, Numbness or Tingling, Change in Color, Inability to urinate, Inability to have a bowel movement, Using more than 1 pad per hour, Shortness of breath, Dizziness, Fainting spells, Chest pain, Calf discomfort and Uncontrolled pain Follow Up Care Please Follow Up With: Irina Barth CNM When: 6 weeks , please call office to make an appointment. Congratulations on the of your baby! Test Results: Test results from this visit will be discussed in further detail at your follow- up appointment, if applicable. Discharge Plan Admission Admit Date/Time: 08/17/23 19:55 Attending Provider: Irina Barth Primary Care Provider: Care Physician,No Primary Discharge Orders/Prescriptions Prescriptions: No Action vit,[id number] 1 TABLET tablet 1 tab PO DAILY Referrals / Follow Up: Care Physician,No Primary [Primary Care Provider] -
[2023-08-17] MEDS: Naproxen 500 MG Tablet PO (22:39)
[2023-08-18] VITALS (8 sets, daily range): BP systolic 95–113; BP diastolic 53–66; PULSE 59–75; RESP 16; TEMP 36.3–36.8; O2SAT 98
[2023-08-18] MEDS: Acetaminophen 500 MG Tablet 1000 MG PO (01:06)
--- NOTE | 2023-08-18 07:55 | PCM.PN.OB ---
Subjective Subjective Patient doing well without complaints. Tolerating PO. Ambulating and voiding without difficulty. Feeding well. Denies chest pain, shortness of breath, calf pain/swelling, fevers, chills, lightheadedness. Objective Data Objective Data Vital Signs: Vital Signs Temp Pulse Resp BP Pulse Ox O2 Del Method 98.3 F 67 16 108/66 98 Room Air 08/18/23 07:53 08/18/23 07:53 08/18/23 07:53 08/18/23 07:53 08/18/23 03:11 08/18/23 03:11 Oxygen Delivery Method Room Air Weight: 150 lb Body Mass Index (BMI) 25.7 Intake & Output: Intake and Output for Last 24 Hours 08/16/23 08/17/23 08/18/23 23:59 23:59 23:59 Intake Total 340 / 340 Output Total 600 / 600 Balance -260 / -260 Lab / Micro Data Attestation: I reviewed the patient's lab results. 08/17/23 20:00 Labs: Laboratory Results - last 24 hr 08/17/23 20:00: WBC 11.9 H, RBC 3.99 L, Hgb 12.7, Hct 37.2, MCV 93.2, MCH 31.8, MCHC 34.1, RDW Std Deviation 44.0 H, RDW Coeff of Desmond 13.0, Plt Count 200, MPV 9.2, Immature Gran % (Auto) 0.400, Neut % (Auto) 70.4 H, Lymph % (Auto) 21.1, [place] % (Auto) 7.7, Eos % (Auto) 0.2, Baso % (Auto) 0.2, Absolute Neuts (auto) 8.4 H, Absolute Lymphs (auto) 2.50, Nucleated RBC % 0, Syphilis Total Ab Non-reactive, Blood Type A POSITIVE, Antibody Screen NEGATIVE ROS Constitutional Constitutional: Reports systems reviewed and no addt'l complaints, except as documented; Denies anorexia or headache(s) Cardiovascular Cardiovascular: Reports systems reviewed and no addt'l complaints, except as documented; Denies dizziness, dyspnea, nausea or tachypnea Respiratory/Chest Respiratory/Chest: Reports systems reviewed and no addt'l complaints, except as documented; Denies cough, dyspnea, shortness of breath at rest or tachypnea Gastrointestinal Gastrointestinal: Reports systems reviewed and no addt'l complaints, except as documented; Denies abdominal pain, constipation or nausea Genitourinary Genitourinary: Reports systems reviewed and no addt'l complaints, except as documented; Denies burning urination, difficulty urinating, dysuria, urinary frequency or urinary incontinence Musculoskeletal Musculoskeletal: Reports systems reviewed and no addt'l complaints, except as documented Integumentary Integumentary: Reports systems reviewed and no addt'l complaints, except as documented Neurologic Neurologic: Reports systems reviewed and no addt'l complaints, except as documented; Denies abnormal speech, dizziness or headache(s) Psychiatric Psychiatric: Reports systems reviewed and no addt'l complaints, except as documented Endocrine Endocrinology: Reports systems reviewed and no addt'l complaints, except as documented Hematologic/Lymphatic Hematologic/Lymphatic: Reports systems reviewed and no addt'l complaints, except as documented Physical Exam Const alert, oriented x3 and no apparent distress Neck full ROM Resp normal respiratory effort, normal air movement and no retractions Effort and Inspection: able to speak in complete sentences and symmetric chest movement GI soft to palpation Bladder / Kidney Exam: bladder normal to palpation Uterus Palpation: uterus fundus firm Extremity normal to inspection and full ROM Psych mental status grossly normal, thought process normal and cooperative Assessment & Plan (1) (spontaneous vaginal delivery): PLAN: s/p PPD # 1 1. routine post delivery care 2. breast feeding- support given 3. rh positive 4. rubella immune Charges/Coding Multi Select Codes Urinary/Genital Urinary/Genital CPT Codes: No Charge
[2023-08-18] MEDS: Naproxen 500 MG Tablet PO (15:55)
--- NOTE | 2023-08-18 15:55 | NURSING ---
[facility] [phone]
[2023-08-18] MEDS: SimETHICONE 80 MG Chewable Tablet PO (21:11)
[2023-08-19 01:24] VITALS: BP 108/55; PULSE 59; O2SAT 92
[2023-08-19 01:28] VITALS: BP 108/55; PULSE 57; RESP 16; TEMP 36.6; O2SAT 97
--- NOTE | 2023-08-19 07:46 | PCM.PN.OB ---
Subjective Subjective Patient doing well without complaints. Tolerating PO. Ambulating and voiding without difficulty. Feeding well. Denies chest pain, shortness of breath, calf pain/swelling, fevers, chills, lightheadedness. Objective Data Objective Data Vital Signs: Vital Signs Temp Pulse Resp BP Pulse Ox O2 Del Method 98 F 57 L 16 108/55 L 97 Room Air 08/19/23 01:28 08/19/23 01:28 08/19/23 01:28 08/19/23 01:28 08/19/23 01:28 08/19/23 01:28 Oxygen Delivery Method Room Air Weight: 150 lb Body Mass Index (BMI) 25.7 Intake & Output: Intake and Output for Last 24 Hours 08/17/23 08/18/23 08/19/23 23:59 23:59 23:59 Intake Total 340 / 340 Output Total 600 / 600 Balance -260 / -260 Lab / Micro Data 08/17/23 20:00 Physical Exam Const alert and oriented x3 HEENT normocephalic Eyes PERRL Neck full ROM Resp normal respiratory effort GI soft to palpation GI Narrative: FF below U Assessment & Plan (1) (spontaneous vaginal delivery): COMMENT: 08/18/23 Melvin MCGUIRE (2) History of hemorrhage: COMMENT: d/t retained placenta. Required GET from birthing center to hospital, 2 U PRBC and D&C. PLAN: Plan s/p PPD # 2 1. routine post delivery care 2. breast feeding- support given 3. rh positive 4. rubella immune 5. home today
[2023-08-19 07:55] VITALS: BP 96/64; PULSE 63
[2023-08-19 07:58] VITALS: BP 96/64; PULSE 63; RESP 18; TEMP 36.3; O2SAT 99
--- NOTE | 2023-08-19 10:40 | CASEMGMT ---
Social Work Assessment Labor and Delivery Unit Patient Address:[address] [address] Phone number: [phone] Date of Referral: 08/17/23 Time of Referral:? 2356 Referred By: Irina Barth Date of Intervention: ?08/19/23? Time of Intervention:? 09 Reason for Referral:? hx anxiety and depression Sw completed chart review and acknowledges social work consult due to maternal mental health history of anxiety and depression. Sw presented to bedside and introduced self to mother of baby (MOB- So) and father of baby (FOB- Taylor). Sw explained reason for sw involvement and completed psychosocial assessment. History obtained from: medical records, MOB and FOB Household composition: Currently residing in the family home is DIPIKA, JORDYN, their two older sons (Tl and Roland) and now baby. MOB denies any issues or concerns regarding their current housing. Patient's parent/guardian status:? MOB and FONiya are , no concerns regarding domestic violence or intimate partner violence. baby is third baby for both parents together. ? Medical History: ?DIPIKA is 28 year old female who is 3, para 2- now 3 following labor and delivery of . DIPIKA received routine care during with Mabel. DIPIKA presented to hospital in active labor, and delivered baby on 08/17/23 via vaginal delivery. Baby boy, named Melvin, was born weighing 7lb 9oz and her apgars were 7 and 9 at one and five minutes of life, respectfully. DIPIKA states that she is breast feeding and this is going well. Educational Status:? Both parents completed 8th grade, no issues with reading, learning or comprehension Financial Status: JORDYN is gainfully employed outside of the home- he works in a factory and states that he is able to take time off of work now that baby has been born. DIPIKA is a stay at home mom. Supplies:?? Parents have everything that they need for baby, including: car seat, safe sleep space, clothes, diapers and wipes. Childcare/Caregiver(s):? MOB will be the primary caregiver to baby along with FOB when he is not at work. At this time paternal grandma is providing care for siblings. Transportation:?? No transportation barriers, parents use a straight truck driver to help them get to scheduled appointments. Programs/Agencies Involved: Parents are not connected to any community resources at this time that assist them financially. Children Services/Legal Issues:??? No history of children services involvement, no issues or concerns warranting a referral to be made at this time. Behavioral Health Issues: ??Mental Health History:???FOB denies any mental health history. DIPIKA states that she has history of anxiety, and disclosed that she did experience depression around 6 weeks after the first delivery. DIPIKA states that she experienced a traumatic delivery and was recovering for a long time- and then their family experienced several losses that all directly impacted her journey. MOB states that during that time she talked with her supports and over time symptoms dissipated. MOB states that she did not experience any symptoms following the delivery of her second son. Substance Use History: No substance use history. ?? Family History:?No family history of substance use or significant mental health history.? Drug Screens: ??No drug screens observed during chart review. Family/Social Stressors: None reported. ? Support Systems: DIPIKA states that she has family and friends who are supportive and FOB. Depression/Shaken Baby/Safe Sleeping:? Sw discussed signs and symptoms of baby blues and depression and anxiety to be on the lookout of. MOB expressed understanding. Sw educated parents on shaken baby prevention and ABCs of safe sleep. Parents express understanding. ASSESSMENT:? Sw met with MOB and FOB to complete psychosocial assessment. Parents pleasant and talkative, receptive to sw involvement. FOB remained quiet, but did answer questions when they were directly asked to him. DIPIKA was talkative with bright affect, good eye contact and engaged in conversation fluidly. DIPIKA states that she had a good journey following the delivery of her second , and states that she feels good now and anticipates a similar journey. DIPIKA has supports in place that she is able to talk to should she struggle with her mental health, and has obtained all necessary baby supplies. DIPIKA was receptive to receiving information and literature regarding mental health symptoms. PLAN:? MOB and baby to be discharged to home when medically ready. MOB has assistance from and family supports. mood and anxiety disorder information provided for home going. ?No other services requested or indicated. Lidia Johnson, AIRCRAFT ENGINE SPECIALIST, [employer]
== END 2023-08-19 10:20 | disposition home or self-care (01) | DRG 807 ==
LOC: WP 19:55 → WPOUT 19:56 → WP 19:56
PROVIDERS: Admitting Provider Registered Nurse; Visit Provider Registered Nurse
DX: O42.02 Full-term premature rupture of membranes, onset of labor within 24 hours of rupture (principal); Z37.0 Single live birth; O70.0 First degree perineal laceration during delivery; Z3A.40 40 weeks gestation of pregnancy; Z87.59 Personal history of other complications of pregnancy, childbirth and the puerperium
CPT/HCPCS: 59025; 59050; 85025; 86780; 86850; 86900; 86901; 99221; J7120; G0378

== ENCOUNTER 2024-07-04 19:28 | Observation (INO) | payer OTHER, SELFPAY ==
[2024-07-04 19:29] VITALS: BP 137/98; PULSE 88; RESP 18; TEMP 36.7; O2SAT 100; BMI 21.4
[2024-07-04 19:43] LABS: Bacteria 0 SEEN /hpf (None Seen); Mucous, Urine 0 SEEN /hpf (<or=2+)
[2024-07-04 19:48] LABS: Color, Urine Yellow (Yellow); Glucose, Dipstick Normal (Normal); Ketone-Dipstick 5 mg/dl (Negative); Leukocyte Esterase-Dipstick 100 /ul (Negative); Nitrite-Dipstick Negative (Negative); Occult Blood-Urine 150 /ul (Negative); Protein-Dipstick 15 mg/dl (Negative); Specific Gravity, Urine 1.005 (1.002-1.030); Urine Bilirubin Dipstick Negative (Negative); Urine Clarity Clear (Clear); Urine Urobilinogen Normal (Normal)
[2024-07-04 20:29] LABS: Red Blood Cells-Urine 0-5 SEEN /hpf (0-5); Squamous Epithelial Cells - UA 0-5 SEEN /hpf (5-10); White Blood Cells 0-5 SEEN /hpf (0-5)
[2024-07-04 20:51] LABS: Absolute Lymphocyte Count 2.45 X10^3/uL (0.83-4.51); Absolute Neutrophil Count 5.4 X10^3/uL (2.0-7.7); Basophil# 0.02 X10^3/uL; Basophil% 0.2 % (0-1); Eosinophil# 0.04 X10^3/uL; Eosinophils% 0.5 % (0-5); Hematocrit 39.6 % (37-47); Hemoglobin 13.6 g/dL (12.0-15.0); Lymphocyte # 2.45 X10^3/ul (0.83-4.51); Lymphocyte % 27.9 % (19-41); Mean Corp Hgb Conc 34.3 g/dL (32-36); Mean Corpuscular Hgb 30.6 pg (27.0-32.0); Mean Platelet Vol. 8.4 fl (6.2-12.0); Monocyte# 0.86 X10^3/uL; Monocyte% 9.8 % (0-10); NRBC Flagged by Analyzer 0 % (0-5); Neutrophil # 5.39 X10^3/uL (2.7-7.7); Neutrophil % 61.3 % (47-70); Platelet Count 208 K/mm3 (150-450); RBC Distribution Width CV 12.3 % (11.6-14.6); RBC Distribution Width SD 40.4 fl (35.1-43.9); Red Blood Count 4.45 M/mm3 (4.2-5.4); White Blood Count 8.8 K/mm3 (4.4-11.0)
[2024-07-04 21:03] LABS: Internal QC Validated? YES +Cl - CLEAR BKGD; Pregnancy, Serum, hCG Quali. NEGATIVE Negative
--- NOTE | 2024-07-04 21:08 | ED.VIS.FEGU ---
HPI HPI - Female History of Present Illness Chief Complaint: Flank Pain PFSH PFSH Medical History History of blood transfusion SROM (spontaneous rupture of membranes) hemorrhage depression Active labor at term Hyperglycemia in Family history of neural tube defect Family history of congenital heart defect Family history of cleft palate Anxiety Home Medications ?Medication ?Instructions ?Recorded ?Last Taken ?Type NK 07/04/24 Unknown History Allergy/AdvReac Type Severity Reaction Status Date / Time No Known Allergies Allergy Verified 07/04/24 19:31 Family History Mother Breast cancer Grandfather Cancer Grandmother Breast cancer Surgical History H/O dilation and curettage (~08/2018) Social History household members: family housing: house number of children: 1 Smoking Status: Never smoker second hand exposure: No alcohol intake: never substance use type: does not use seatbelt use: always do you feel safe at home: Yes additional social history: [employer] EXAM Physical Exam Const Vital Signs: 07/04/24 19:29 07/04/24 21:29 07/04/24 22:30 Temperature 98.1 F Temperature Source Oral Pulse Rate 88 87 101 H Respiratory Rate 18 16 16 Blood Pressure 137/98 H 131/89 H Blood Pressure Mean 111 103 Pulse Ox 100 97 98 Oxygen Delivery Method Room Air Room Air Room Air 07/04/24 22:48 Temperature 97.5 F L Temperature Source Pulse Rate 103 H Respiratory Rate 17 Blood Pressure 136/82 H Blood Pressure Mean 100 Pulse Ox 98 Oxygen Delivery Method MDM MDM MDM Narrative Medical decision making narrative: HISTORY OF PRESENT ILLNESS: 29-year-old female presents concern for right flank and right lower abdominal pain. She notes pain radiates to bladder. She notes this began yesterday. Is slightly improved. Denies nausea vomiting today. Denies history of kidney stones. Denies hematuria. No falls or trauma. REVIEW OF SYSTEMS: Pertinent positives: Flank pain Pertinent negatives: Hematuria PHYSICAL EXAM: Nursing triage notes reviewed, Vital signs reviewed Constitutional: please see mdm HENT: MMM Eyes: Pupils equal round and reactive to light, Extraocular muscles intact Neck: No stridor, no JVD, full neck ROM Lungs: Clear to auscultation, No wheezing or rales. No increased work of breathing, no conversational dyspnea, no accessory muscle use, no nasal flaring. No respiratory distress noted Heart: Regular rate and rhythm, No murmurs, No rubs and No gallops, 2+ distal pulses (radial, femoral, posterior tibial) in all extremities Abdomen: Soft, there is no tenderness, rigidity, rebound or guarding, no obvious peritoneal signs, no palpable pulsatile abdominal masses, no auscultated abdominal bruit : No CVAT Extremities: No edema Neuro: No new focal neurological deficits, cranial nerves II through XII intact, 5/5 strength in all present extremities. Intact sensation to light touch in all present extremities, 2+ reflexes bilateral patella tendons. Skin: No rash or lesions noted MEDICAL DECISION MAKING: Chief Complaint: Flank External records reviewed: Prior imaging reviewed Factors affecting care: no dilation curettage Social determinants of health: none History obtained from others: none Consults: Urology (Dr. Houston) MDM Narrative: Patient was initially hemodynamically stable, afebrile and nontoxic-appearing. There is no CVA tenderness noted. No pulsatile abdominal masses. I considered the following differential diagnosis: Kidney stone, AAA, musculoskeletal etiology, pyelonephritis, UTI ALL IMAGES (IF OBTAINED) HAVE BEEN PERSONALLY REVIEWED AND INTERPRETED BY MYSELF. CBC without leukocytosis, severe anemia, no thrombocytopenia. Urinalysis with evidence of hematuria and slight inflammation but no sign of UTI to suggest pyelonephritis CT scan of the abdomen pelvis with a 6 x 8 mm stone Urine test is negative Discussed case with urologist on-call Dr. Houston who recommended admitting to the service for pain control and possible operative management. The patient and/or family, caregivers express understanding. The patient and/or family, caregivers agrees with the plan. Shared decision making: I will have a discussion with the patient and or visitors regarding risk/benefits of further testing or admission. They will be made aware of of the risk/benefits inherent in this decision they will be given the opportunity to voice understanding. Total critical care time today provided was at least 0 minutes. This excludes separately billable procedures. Critical care time (if documented) is secondary to the patient having high probability of clinically significant/life threatening deterioration in the patient's condition which required my urgent intervention. Impression: 1. Acute flank pain 2. Nephrolithiasis 3. Hydronephrosis Dispo: Admit to [facility] This note was generated with [employer] dictation software. It may contain incorrect words, spelling, and punctuation that were not noted in review of the chart prior to signing. Lab Data Labs: Laboratory Results - last 24 hr 07/04/24 07/04/24 19:38 20:33 WBC 8.8 RBC 4.45 Hgb 13.6 Hct 39.6 MCV 89.0 MCH 30.6 MCHC 34.3 RDW Std Deviation 40.4 RDW Coeff of [place]mond 12.3 Plt Count 208 MPV 8.4 Immature Gran % (Auto) 0.300 Neut % (Auto) 61.3 Lymph % (Auto) 27.9 Jack % (Auto) 9.8 Eos % (Auto) 0.5 Baso % (Auto) 0.2 Absolute Neuts (auto) 5.4 Absolute Lymphs (auto) 2.45 Nucleated RBC % 0 Sodium 137 Potassium 3.5 Chloride 103 Carbon Dioxide 27.0 Anion Gap 7 BUN 12 Creatinine 0.58 Estim Creat Clear Calc 124.70 Est GFR (MDRD) Af Amer 158 Est GFR (MDRD) Non-Af 131 BUN/Creatinine Ratio 20.7 H Glucose 92 Calcium 9.7 Total Bilirubin 0.60 AST 16 ALT 17 Alkaline Phosphatase 88 Total Protein 8.0 Albumin 4.0 Globulin 4.0 Albumin/Globulin Ratio 1.0 Serum , Qual NEGATIVE Urine Color Yellow Urine Clarity Clear Urine pH 7.0 Ur Specific [place] 1.005 Urine Protein 15 H Urine Glucose (UA) Normal Urine Ketones 5 H Urine Occult Blood 150 H Urine Nitrite Negative Urine Bilirubin Negative Urine Urobilinogen Normal Ur Leukocyte Esterase 100 H Urine RBC 0-5 SEEN Urine WBC 0-5 SEEN Ur Squamous Epith Cells 0-5 SEEN Urine Bacteria 0 SEEN Urine Mucus 0 SEEN Radiography Diagnostic Testing: Clinical Impression(s) from Imaging Studies Abdomen/Pelvis CT 07/04/24 21:09 IMPRESSION: 1. Marked hydronephrosis and hydroureter on the RIGHT contributed by an obstructing RIGHT UVJ calcification estimated at 6 x 8 mm. Multiple smaller nonobstructing calcifications in both kidneys. No obstructive changes on the LEFT. 2. No masses bowel obstruction abscess free fluid or free air. Normal appendix. 3. No evidence of cholelithiasis or ductal dilatation. Electronically Signed: Jessee Mendoza MD at 21:50 EST , Discharge Plan Triage Chief Complaint: Flank Pain ED Provider: Miguel Forbes Dx/Rx/DC Orders Primary Care Provider: Care Physician,No Primary
[2024-07-04 21:09] LABS: AST(SGOT) 16 U/L (15-37); Alanine Aminotransfer ALT/SGPT 17 U/L (13-56); Alkaline Phosphatase 88 U/L (45-117); Anion Gap 7 (5-15); BUN 12 mg/dL (7-18); BUN/Creat Ratio 20.7 RATIO (10-20); Calcium,Total 9.7 mg/dL (8.5-10.1); Chloride 103 mmol/L (98-107); Creatinine, Serum 0.58 mg/dL (0.55-1.02); EST Glomerular Filtration Rate 131 mL/min (>60); Est Glom Filt Rate - Afr Amer 158 mL/min (>60); Glucose 92 mg/dL (74-106); Potassium 3.5 mmol/L (3.5-5.1); Sodium Level 137 mmol/L (136-145)
--- NOTE | 2024-07-04 21:09 | CT_ITS ---
INDICATION: Right flank pain EXAMINATION: CT ABDOMEN AND PELVIS WITHOUT CONTRAST - CT Abdomen And Pelvis W/O Contrast Injection TECHNIQUE: Helically acquired images were obtained of the abdomen and pelvis without oral or IV contrast. A radiation dose optimization technique was used for this scan. IV Contrast dosage and agent: None. Oral contrast: None. RADIATION DOSAGE (If Supplied By Facility): CTDIvol = ( 6.09 ) mGy, DLP = ( 282.92 ) mGycm COMPARISON: No pertinent previous examinations for comparison.. FINDINGS: LOWER CHEST: 1. Lung bases are clear. 2. No cardiomegaly or pericardial effusion. 3. No significant coronary vascular calcifications. LIVER: The liver has normal configuration and density given the limitation of noncontrast exam.. No focal mass. GALLBLADDER AND BILIARY TREE: No calcified gallstones. No gallbladder distension or wall edema. No intra- or extrahepatic biliary ductal dilation. PANCREAS: No focal cystic or solid mass. SPLEEN: Normal size without focal cystic or solid mass. ADRENAL GLANDS: No nodules. KIDNEYS AND URETERS: Kidneys have normal configuration, RIGHT kidney is mildly enlarged. There is marked hydronephrosis and hydroureter on the RIGHT to the level of the RIGHT UVJ where there is an obstructing coarse calcification measuring approximately 6 x 8 mm. Several smaller 2 to 3 mm nonobstructing calcifications in the calyces of both kidneys. No perinephric fluid collections. Normal appearance of the LEFT ureter and calyces.. PERITONEUM: No ascites or free air. No other fluid collection. BOWEL: No evidence of acute appendicitis. No stomach or bowel distension. No focal inflammatory change. LYMPH NODES: No enlarged mesenteric or retroperitoneal lymph nodes. VESSELS: Aorta is non-dilated. URINARY BLADDER: Bladder is mildly distended, coarse calcification at the RIGHT UVJ. No calcifications within the bladder lumen. No mass is noted. REPRODUCTIVE ORGANS: Normal appearance the uterus and pelvic sidewalls. No masses or abnormal fluid collections. ABDOMINAL WALL: No discrete abdominal or pelvic wall hernia. BONES: No lytic or blastic abnormality. CT/Abdomen/Pelvis without Cont IMPRESSION: 1. Marked hydronephrosis and hydroureter on the RIGHT contributed by an obstructing RIGHT UVJ calcification estimated at 6 x 8 mm. Multiple smaller nonobstructing calcifications in both kidneys. No obstructive changes on the LEFT. 2. No masses bowel obstruction abscess free fluid or free air. Normal appendix. 3. No evidence of cholelithiasis or ductal dilatation. Electronically Signed: Jessee Mendoza MD at 21:50 EST ,
[2024-07-04 21:29] VITALS: BP 131/89; PULSE 87; RESP 16; O2SAT 97
[2024-07-04] MEDS: Ketorolac 15 MG/ML Vial IV (22:27)
[2024-07-04] MEDS: Morphine 4 MG/ML Syringe IV (22:27)
[2024-07-04 22:30] VITALS: PULSE 101; RESP 16; O2SAT 98
[2024-07-04 22:48] VITALS: BP 136/82; PULSE 103; RESP 17; TEMP 36.4; O2SAT 98
[2024-07-04 23:24] VITALS: BMI 21.4
[2024-07-05] VITALS (8 sets, daily range): BP systolic 103–117; BP diastolic 71–76; PULSE 74–89; RESP 14–20; TEMP 36.4–37; O2SAT 97–99
[2024-07-05] MEDS: 0.9% Saline Lock 10 ML Syringe IV (00:43)
[2024-07-05] MEDS: 0.9% Normal Saline (1000mL) 1,000 ML 125 ML IV ×2 (01:14→09:46)
[2024-07-05] MEDS: Ciprofloxacin 400 MG/200 ML BAG 200 MG IV ×2 (01:16→09:46)
--- NOTE | 2024-07-05 07:29 | HP.PCM_ITS ---
HPI - General General Date of Admission: 07/04/24 Date of Service: 07/04/24 Chief Complaint: Right large kidney stone HPI Narrative RAY GONG, is a 29 F who presents to [facility] severe right flank pain she has been having right flank pain since Thursday then she got severe right flank pain and CAT scan was done and she was found to have an 8 mm stone in the distal right ureter with severe hydronephrosis, no chills no fevers but she does have vomiting and she is having some intractable pain and she was brought in for pain control currently she is comfortable. Discussed options of the patient with their either let her go home and see if she can pass a stone that is quite large or [place]atar surgery put a stent in there wondering if is possible to laser the stone at this point I think it is can to be too tight too much inflammation so I recommended just to place a stent let the ureter dilate and then we will do the surgery and lasered at another setting once the situation under control and her kidney is decompressed. Patient was okay with this organ to proceed with a cystoscopy and stent placement in the OR today n.p.o. for surgery [facility] Medical History History of blood transfusion SROM (spontaneous rupture of membranes) hemorrhage depression Active labor at term Hyperglycemia in Family history of neural tube defect Family history of congenital heart defect Family history of cleft palate Anxiety Home Medications ?Medication ?Instructions ?Recorded ?Last Taken ?Type NK 07/04/24 Unknown History Allergy/AdvReac Type Severity Reaction Status Date / Time No Known Allergies Allergy Verified 07/04/24 19:31 Family History Mother Breast cancer Grandfather Cancer Grandmother Breast cancer Surgical History H/O dilation and curettage (~08/2018) Social History household members: family housing: house number of children: 1 Smoking Status: Never smoker second hand exposure: No alcohol intake: never substance use type: does not use seatbelt use: always do you feel safe at home: Yes additional social history: [employer] ROS Constitutional Constitutional: Denies chills, fever(s) or malaise Eyes Eyes: Denies blurry vision or change in vision ENT HEENT: Reports none Cardiovascular Cardiovascular: Denies chest pain or palpitations Respiratory/Chest Respiratory/Chest: Denies cough or shortness of breath with exertion Gastrointestinal Gastrointestinal: Denies abdominal pain, constipation or diarrhea Musculoskeletal Musculoskeletal: Denies back pain, joint stiffness or joint swelling Integumentary Integumentary: Denies dry skin, jaundice, lesions or rash Neurologic Neurologic: Denies confusion, syncope or weakness Psychiatric Psychiatric: Reports none; Denies anxiety or depression Endocrine Endocrinology: Denies excessive sweating, fatigue or flushing Hematologic/Lymphatic Hematologic/Lymphatic: Denies anemia, easy bleeding or easy bruising Vital Signs Vital Signs Vital Signs: 07/04/24 19:29 07/04/24 21:29 07/04/24 22:30 Temperature 98.1 F Temperature Source Oral Pulse Rate 88 87 101 H Respiratory Rate 18 16 16 Respiratory Effort Respiratory Depth Respiratory Pattern Blood Pressure 137/98 H 131/89 H Blood Pressure Mean 111 103 Blood Pressure Source Blood Pressure Position Blood Pressure Location Pulse Ox 100 97 98 Oxygen Delivery Method Room Air Room Air Room Air 07/04/24 22:48 07/04/24 23:24 07/05/24 00:39 Temperature 97.5 F L 98.6 F Temperature Source Oral Pulse Rate 103 H 89 Respiratory Rate 17 16 Respiratory Effort Normal Non-Labored Respiratory Depth Normal Respiratory Pattern Normal Blood Pressure 136/82 H 111/76 Blood Pressure Mean 100 87 Blood Pressure Source Monitor Blood Pressure Position Semi-Fowlers Blood Pressure Location Right Arm Pulse Ox 98 98 Oxygen Delivery Method Room Air Room Air 07/05/24 06:24 Temperature 98.4 F Temperature Source Oral Pulse Rate 74 Respiratory Rate 14 Respiratory Effort Respiratory Depth Respiratory Pattern Blood Pressure 117/75 Blood Pressure Mean 89 Blood Pressure Source Monitor Blood Pressure Position Blood Pressure Location Pulse Ox 97 Oxygen Delivery Method Room Air Weight Weight: 56.8 kg Body Mass Index (BMI) 21.4 Physical Exam Const alert and oriented x3 General Appearance: cooperative HEENT normocephalic and head/scalp atraumatic Eyes PERRL and EOMs intact bilaterally Neck supple, no JVD and no carotid bruits Resp normal respiratory effort, normal air movement and clear to auscultation bilaterally Cardio regular rate and no murmurs GI normal to inspection, nondistended, normoactive bowel sounds and soft to palpation Extremity normal capillary refill General Extremity: no tenderness to palpation of joints or extremities; Negative for edema Skin no rashes or lesions noted and no wounds General Skin Exam: no breakdown Neuro CN's II-XII intact bilaterally Psych affect normal Appearance: appropriate Results Medical Records Data Attestation: I reviewed the patient's medical records Lab / Micro Data 07/04/24 20:33 07/04/24 20:33 Labs: Laboratory Results - last 24 hr 07/04/24 19:38: Urine Color Yellow, Urine Clarity Clear, Urine pH 7.0, Ur Specific [place] 1.005, Urine Protein 15 H, Urine Glucose (UA) Normal, Urine Ketones 5 H, Urine Occult Blood 150 H, Urine Nitrite Negative, Urine Bilirubin Negative, Urine Urobilinogen Normal, Ur Leukocyte Esterase 100 H, Urine RBC 0-5 SEEN, Urine WBC 0-5 SEEN, Ur Squamous Epith Cells 0-5 SEEN, Urine Bacteria 0 SEEN, Urine Mucus 0 SEEN 07/04/24 20:33: WBC 8.8, RBC 4.45, Hgb 13.6, Hct 39.6, MCV 89.0, MCH 30.6, MCHC 34.3, RDW Std Deviation 40.4, RDW Coeff of [place] 12.3, Plt Count 208, MPV 8.4, Immature Gran % (Auto) 0.300, Neut % (Auto) 61.3, Lymph % (Auto) 27.9, [place] % (Auto) 9.8, Eos % (Auto) 0.5, Baso % (Auto) 0.2, Absolute Neuts (auto) 5.4, Absolute Lymphs (auto) 2.45, Nucleated RBC % 0, Sodium 137, Potassium 3.5, Chloride 103, Carbon Dioxide 27.0, Anion Gap 7, BUN 12, Creatinine 0.58, Estim Creat Clear Calc 124.70, Est GFR (MDRD) Af Amer 158, Est GFR (MDRD) Non-Af 131, BUN/Creatinine Ratio 20.7 H, Glucose 92, Calcium 9.7, Total Bilirubin 0.60, AST 16, ALT 17, Alkaline Phosphatase 88, Total Protein 8.0, Albumin 4.0, Globulin 4.0, Albumin/Globulin Ratio 1.0, Serum , Qual NEGATIVE Imaging Radiology Impression Abdomen/Pelvis CT 07/04/24 21:09 IMPRESSION: 1. Marked hydronephrosis and hydroureter on the RIGHT contributed by an obstructing RIGHT UVJ calcification estimated at 6 x 8 mm. Multiple smaller nonobstructing calcifications in both kidneys. No obstructive changes on the LEFT. 2. No masses bowel obstruction abscess free fluid or free air. Normal appendix. 3. No evidence of cholelithiasis or ductal dilatation. Electronically Signed: Jessee Mendoza MD at 21:50 EST , Assessment & Plan Assessment/Plan (1) Right kidney stone: PLAN: 29-year-old female with a large stone in the distal right ureter severe hydronephrosis plan to proceed today for surgery for cystoscopy and right stent placement after the stents placed I will discharge the patient home today with pain medicine and antibiotics.
--- NOTE | 2024-07-05 07:31 | DCINST_ITS ---
Discharge Instructions Diet Discharge Diet: No restrictions DC O2, CPAP, BIPAP needs Home O2 Discharge instructions: No Dressing / Incision Discharge Activity: Return to Normal Activity and May Not Drive (while taking narcotic pain medications.) Dressing / Incision Call your doctor if you observe: Fever of 101 or Higher Follow Up Care Please Follow Up With: Clifton Houston MD When: Call [phone] for an appointment Test Results: Test results from this visit will be discussed in further detail at your follow- up appointment, if applicable. Discharge Plan Admission Admit Date/Time: 07/05/24 00:47 Attending Provider: Clifton Houston Primary Care Provider: Care Physician,No Primary Discharge Orders/Prescriptions Prescriptions: No Action NK Referrals / Follow Up: Care Physician,No Primary [Primary Care Provider] -
--- NOTE | 2024-07-05 07:50 | NURSING ---
[facility] called at this time for breast pump. [facility] staff will bring a manual pump for patient.
--- NOTE | 2024-07-05 12:06 | PRE.ANES_ITS ---
ASA Classification* ASA Classification ASA Classification: 1 and E Assessment & Plan Anesthesia* Anesthesia Assessment Anesthesia Assessment: Discussed sedation and/or anesthesia options, risks, benefits, and alternatives with patient/parents/legal guardian/POA. Questions invited. The patient/parents/legal guardian/POA seems to understand and agrees to proceed with anesthesia plan. Reviewed the physical assessment, medical history, allergy history and patient home medications list prior to surgery/procedure/anesthetic and documented any changes. Performed airway and anesthesia risk assessments. Anesthesia Type Anesthesia Type: MAC History Source History Obtained from:: Patient and Chart Anesthesia Focused Assessment* Temperature: 98.4 F Pulse Rate: 74 Blood Pressure: 117/75 Respiratory Rate: 14 Pulse Ox: 97 Oxygen Delivery Method: Room Air Airway Assessment Mouth opens: >3 cm Mallampati Score: II Teeth Condition: Intact Neck Range of motion (ROM): Full ROM Focused Labs Anesthesia Preop lab: CBC WBC 8.8 K/mm3 (4.4-11.0) 07/04/24 20:33 RBC 4.45 M/mm3 (4.2-5.4) 07/04/24 20:33 Hgb 13.6 g/dL (12.0-15.0) 07/04/24 20:33 Hct 39.6 % (37-47) 07/04/24 20:33 Plt Count 208 K/mm3 (150-450) 07/04/24 20:33 CHEMISTRY Potassium 3.5 mmol/L (3.5-5.1) 07/04/24 20:33 Sodium 137 mmol/L (136-145) 07/04/24 20:33 BUN 12 mg/dL (7-18) 07/04/24 20:33 Creatinine 0.58 mg/dL (0.55-1.02) 07/04/24 20:33 Glucose 92 mg/dL (74-106) 07/04/24 20:33 POC Glucose 72 mg/dL (70-110) 11/20/20 06:03 COAG HCG, Quant 40645 mIU/mL (1-3) H 12/26/22 09:02 Pre-Assessment Diagnosis/Proposed Procedure Planned Operative Procedure(s): Cystoscopy and right stent placement Anesthesia History 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 When Was Last Pacemaker Check QUESTION #4 FULL TEXT: You/Your Family Experience fever (hyperthermia) with Anesthesia Last Oral Intake Last Oral intake: Last Oral Intake NPO since Meds taken in AM with sips of water? Meds patient instructed to take am of surgery Any additional information?: Yes NPO since: 00:00 PONV PONV - recreational therapy technician: PONV - recreational therapy technician Female HX of Motion Sickness HX of N/V After Surgery Non-Smoker Duration of Surgery greater than 60 minutes Number of Risk Factors PONV Score Height & Weight Height & Weight: Anesthesia: Height & Weight Height 5 ft 4 in 07/04/24 23:24 Weight: 56.8 kg 07/04/24 23:24 Body Mass Index (BMI) 21.4 07/04/24 23:24 Respiratory Assessment Respiratory Assessment - recreational therapy technician: Respiratory Tract Infection Hx - recreational therapy technician Hx Respiratory Tract Infection No 07/05/24 00:21 Any additional information?: Yes Hx Respiratory Tract Infection: Yes (Patient is still recovering from a sore throat and cold. Lungs are clear.) STOP Sleep Apnea STOP Sleep Apnea - recreational therapy technician: STOP Sleep Apnea - recreational therapy technician Hx Hypertension No 07/04/24 23:24 Hx Sleep Apnea No 07/04/24 23:24 CPAP BIPAP Do you snore loudly (louder No 07/04/24 23:24 than talking or can be heard Do you often feel tired/ Yes 07/04/24 23:24 fatigued/ sleepy during daytime? Has anyone observed you stop No 07/04/24 23:24 breathing during sleep? STOP Results Negative 07/04/24 23:24 QUESTION #5 FULL TEXT : Do you snore loudly (louder than talking or can be heard through closed doors)? 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 Specify any problems Hx of Preganancy in last 3 No 07/04/24 23:24 Months Nurse Filling Out Transfusion EVIZZO 07/04/24 23:24 & Questions: Date: 07/05/24 07/04/24 23:24 Time: 00:16 07/04/24 23:24 Patient unable to answer at this time (ie. confused, unrespo /Reproduction History /Reproductive History - recreational therapy technician: /Reproductive Hx- recreational therapy technician Hx Now No 07/05/24 00:21 Gestational Age (in weeks): EDC: Hx Hx Para Hx Section SAB Yes 07/05/24 00:21 Active Medications Active Medications: Current Medications Generic Name Dose Route Start Last Admin Trade Name Freq PRN Reason Stop Dose Admin Sodium Chloride 100 mls @ 15 mls/hr 07/04/24 23:35 IV .Q6H40M PRN Saline Flush Sodium Chloride 1,000 mls @ 125 mls/hr 07/05/24 00:05 07/05/24 09:46 IV 07/05/24 16:04 125 mls/hr .Q8H FREDY Administration Protocol Ciprofloxacin 400 mg in 200 mls @ 200 mls/hr 07/05/24 00:10 07/05/24 11:43 Cipro IV Infused Q12 FREDY Infusion Ketorolac Tromethamine 15 mg 07/05/24 00:07 Ketorolac 15 Mg/Ml Vial IV 07/10/24 00:08 Q6H PRN PRN Pain 1-10 or Fever Morphine Sulfate 2 mg 07/05/24 00:06 Morphine 2 Mg/Ml Syringe IV Q2H PRN PRN Pain Score 6-10 Ondansetron HCl 4 mg 07/05/24 00:09 Ondansetron 4 Mg/2 Ml Vial IV Q6H PRN PRN NAUSEA Sodium Chloride 10 - 40 ml 07/04/24 23:35 07/05/24 00:43 0.9% Saline Lock 10 Ml Syringe IV 10 ml UD PRN Administration SALINE FLUSH PFSH Medical History History of blood transfusion SROM (spontaneous rupture of membranes) hemorrhage depression Active labor at term Hyperglycemia in Family history of neural tube defect Family history of congenital heart defect Family history of cleft palate Anxiety Home Medications ?Medication ?Instructions ?Recorded ?Last Taken ?Type NK 07/04/24 Unknown History Allergy/AdvReac Type Severity Reaction Status Date / Time No Known Allergies Allergy Verified 07/04/24 19:31 Family History Mother Breast cancer Grandfather Cancer Grandmother Breast cancer Surgical History H/O dilation and curettage (~08/2018) Social History household members: family housing: house number of children: 1 Smoking Status: Never smoker second hand exposure: No alcohol intake: never substance use type: does not use seatbelt use: always do you feel safe at home: Yes additional social history: [employer] Review of Systems (Anesthesia) ROS Narrative System reviewed and no additional complaints, except as documented.
--- NOTE | 2024-07-05 12:43 | PCM.OPRPT ---
Operative Report (Standard) Operative Information Date of Procedure: 07/05/24 Pre-Operative Diagnosis: right ureteral calculi Post-Operative Diagnosis: same Surgery/Procedure Performed: cystoscopy, and right stent placement director of alumni relations: No Type of Anesthesia: General RN Documented Start/Stop Times: Operation Date: 07/05/24 12:30 Case Time Into Pre-Op 07/05/24 11:29 Out of Pre-Op 07/05/24 12:32 Procedure Start Time: 12:43 Procedure Stop Time: 12:54 Select all DRAINS/GRAFTS/IMPLANTS that apply: Drains Drain details: 6fr x 24 cm stent right Estimated Blood Loss: 0 Specimen collected: No Description of surgery: Patient was taken back to the operating room after induction of general anesthesia, the patient was placed in dorsolithotomy position. The urethra and genitals were prepped and draped in usual sterile fashion. Using a 21 Ukrainian rigid cystourethroscope the entire length of the urethra was normal then went into the bladder. Identified the trigone the left and right ureteral orifice. I then cannulated the right ureteral orifice and advanced a wire up into the kidney. I then backloaded a 5 Ukrainian open ended catheter over the wire and injected contrast to delineate the anatomy. After the retrograde was performed I then used fluoroscopic images and guidance to advanced a wire up into the kidney and over the 0.038 glidewire I advanced a 6 Ukrainian by 24 cm double pigtail stent. I then pulled the 0.038 Glidewire off and the stent coiled in the kidney bladder good position. The bladder was then drained. We confirmed the position of the stent by fluoroscopy. Patient anesthetic was reversed and was taken back to the PACU in good condition. Surgical Findings: stone in distal ureter right Complications Complications: No Admit VTE Documentation VTE Present on Admission: No VTE Mechan Device Prophylaxis: SCD's VTE Pharm Prophylaxis ordered?: No
--- NOTE | 2024-07-05 13:08 | PCM.POST.ANE ---
Anesthesia: Postop Eval I Current Vital Signs Temperature: 97.8 F Pulse Rate: 79 Blood Pressure: 103/71 Respiratory Rate: 20 Pulse Ox: 98 Assessment Airway patent: Yes Spontaneous unlabored respirations: Yes nausea: No Vomiting: No Anesthesia Complication: No Fluid Hydration Crystalloid volume administer (ml): 700 Total IV fluid infused: 700 Progress Note Anesthesia document: Postop Eval 1 completed: Yes
--- NOTE | 2024-07-05 13:54 | CASEMGMT ---
RN CM into pt room, pt denies having PCP, provided pt with a local healthcare directory pamphlet. Pt states she is self pay but her mother has spoken to Shirley Busch who is putting a packet together for them. Pt denies any further needs with this. Pt denies any homegoing needs.
--- NOTE | 2024-07-05 22:53 | POSTOPAN2_ITS ---
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 Spontaneous unlabored Yes 07/05/24 13:08 HOST/HOSTESS [email or web address] respirations Mental status nausea No 07/05/24 13:08 HOST/HOSTESS [email or web address] Vomiting No 07/05/24 13:08 HOST/HOSTESS [email or web address] Anesthesia Postop Eval I: Fluid Summary Crystalloid volume administer 700 07/05/24 13:08 HOST/HOSTESS [email or web address] (ml) Colloids volume administered ( ml) Blood Product volume administered (ml) Total IV fluid infused 700 07/05/24 13:08 HOST/HOSTESS [email or web address] Anesthesia Postop Eval I: Summary Notes Anesthesia Complication No 07/05/24 13:08 HOST/HOSTESS [email or web address] Anesthesia Complication Comment: Post-operative progress note Anesthesia: Postop Eval II Evaluation Mental status: Awake and Calm Pain Level: 2 nausea: No Vomiting: No Complications Anesthesia Complication: No
--- NOTE | 2024-07-05 22:53 | PCM.POSTANE2 ---
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 Spontaneous unlabored Yes 07/05/24 13:08 MACHINE OPERATOR [email or web address] respirations Mental status nausea No 07/05/24 13:08 MACHINE OPERATOR [email or web address] Vomiting No 07/05/24 13:08 MACHINE OPERATOR [email or web address] Anesthesia Postop Eval I: Fluid Summary Crystalloid volume administer 700 07/05/24 13:08 MACHINE OPERATOR [email or web address] (ml) Colloids volume administered ( ml) Blood Product volume administered (ml) Total IV fluid infused 700 07/05/24 13:08 MACHINE OPERATOR [email or web address] Anesthesia Postop Eval I: Summary Notes Anesthesia Complication No 07/05/24 13:08 MACHINE OPERATOR [email or web address] Anesthesia Complication Comment: Post-operative progress note Anesthesia: Postop Eval II Evaluation Mental status: Awake and Calm Pain Level: 2 nausea: No Vomiting: No Complications Anesthesia Complication: No
== END 2024-07-05 15:59 | disposition home or self-care (01) ==
LOC: ED 21:13 → MS3 07-05 00:49
PROVIDERS: Admitting Provider Urology; Emergency Provider Emergency Medicine; Referring Provider Emergency Medicine; Visit Provider Urology
PROC: (CPT 52332; principal; 2024-07-05 12:20)
DX: N13.2 Hydronephrosis with renal and ureteral calculous obstruction (principal); R31.9 Hematuria, unspecified
CPT/HCPCS: 52332; 00910; 74176; 76000; 80053; 81001; 84703; 85025; 96361; 96365; 96366; 96375; 99221; 99285; A4216; C1769; G0378; J0744; J2405

== ENCOUNTER → 2024-07-11 | Outpatient (CLI) | payer SELFPAY ==
--- NOTE | 2024-07-11 | CALC_PTH ---
PATIENT: RAY GONG LOC: [facility] U#:[id number] AGE/SX: 29/F ROOM: RE07/11/[address]: Dr. Clifton Houston MD : 1995 BED: DIS: 07/11/2024 SPEC #: [id number] RECD: 07/12/24 08:52 STATUS: JUDIT ISABELLA #: [id number] BILLY: 07/11/24 00:[address]: Clifton Houston DEPT: SURGICAL PATHOLOGY RECD BY: Dk Brown ENTERED: 07/12/24 08:52 SP TYPE: Calculi OTHR DR: No Primary Care Phys Tissues: CALCULI Procedures: Surgery Specimen Level I HEADER OPERATION: Not noted PRE-OP DIAGNOSIS: Calculus of kidney TISSUE SUBMITTED: Calculi GROSS DIAGNOSIS A fragment of stone, clinically urinary calculus (gross only). 07/12/2024 COMMENT The calculus is submitted in its entirety for chemical stone analysis. The results from this study will be reported separately. GROSS DESCRIPTION Received without fixative labeled with the patient's name and designated ureteral calculi. The specimen consists of a piece of brown stone measuring 0.5 x 0.5 x 0.2 cm. The entire specimen is submitted for stone analysis. 07/12/2024 CPT: 96979
[2024-07-18 18:07] LABS: Calcium Phosphate (hydroxyl) 100 % (.); Size 7x6 mm (.)
== END | disposition home or self-care (01) ==
PROVIDERS: Referring Provider Urology; Visit Provider Urology
DX: N20.0 Calculus of kidney (principal)
CPT/HCPCS: 82360; 88300

== ENCOUNTER → 2025-01-09 | Outpatient (CLI) | payer SELFPAY ==
--- NOTE | 2025-01-09 14:05 | US_ITS ---
PROCEDURE: BREAST LIMITED UNILATERAL 01/09/2025 REASON FOR EXAM: F, Age 29 y/o , RIGHT BREAST LUMP Right breast palpable lump. Palpable abnormality is painful. Evaluate. History of mastitis. Patient stopped 2 months ago. Patient's mother was diagnosed with breast cancer at the age of 47. Patient's maternal grandmother was diagnosed with breast cancer in her 40s. COMPARISON: Mammogram dated 09/2024. TECHNIQUE: BREAST LIMITED UNILATERAL FINDINGS: There is no ultrasound abnormality in the right breast to correlate to the palpable area that is painful. This area is located in the superior aspect of the breast. This area appears to represent a ridge of normal breast tissue. No suspicious solid or cystic masses are seen in this location. There is no mass to suggest abscess. There are no worrisome masses to suggest malignancy. The skin is not abnormally thickened. US/Breast Limited Unilateral IMPRESSION: The palpable abnormality appears to represent a ridge of normal breast tissue. The patient was encouraged to continue performing monthly self-breast exams. If this area does increase in size, further workup with breast MRI should be considered. Otherwise, no further workup is indicated at this time. BI-RADS 1: NEGATIVE RECOMMENDATION: OTHER Reading Location: [id number]
--- NOTE | 2025-01-09 14:05 | BI_ITS ---
EXAM: DIAG MAMM W/CAD, BILAT 01/09/2025 CLINICAL HISTORY: F, Age 29 y/o , RIGHT BREAST LUMP. Palpable lump is painful. History of mastitis. Patient quit breast-feeding a couple of months ago. Patient's mother and grandmother were diagnosed with breast cancer. TECHNIQUE: DIAG MAMM W/CAD, BILAT. Patricia images were performed. COMPARISON: None. FINDINGS: TISSUE DENSITY: The breasts are extremely dense, which lowers the sensitivity of mammography. Bilateral Breast Mammographic Findings: There is no mammographic abnormality in the right breast to correlate to the palpable abnormality that is painful. The breast tissue in this location is extremely dense which could obscure an underlying abnormality correlating to this area. Further workup with ultrasound will be performed for further evaluation. Benign vascular calcifications and round microcalcifications are seen in both breasts. No suspicious masses, suspicious cluster of microcalcifications, architectural distortion or secondary sign of malignancy is identified in either breast. The patricia images do not demonstrate any mammographic abnormality. BI/DIAG MAMM W/CAD, BILAT IMPRESSION: There is no mammographic abnormality in the right breast to correlate to the pa lpable abnormality that is painful. The breast tissue in this location is extremely dense which could obscure an underlying ab normality correlating to this area. Further workup with ultrasound will be performed for further evaluation. OVERALL FINAL ASSESSMENT BI-RADS 0: INCOMPLETE - NEED ADDITIONAL IMAGING EVALUATION. RECOMMENDATION: Ultrasound Recommended A letter with findings and recommendations will be mailed to the patient. Reading Location: [id number]
== END | disposition home or self-care (01) ==
PROVIDERS: Referring Provider Advanced Practice Midwife; Visit Provider Advanced Practice Midwife
DX: N63.10 Unspecified lump in the right breast, unspecified quadrant (principal); N64.4 Mastodynia; Z80.3 Family history of malignant neoplasm of breast
CPT/HCPCS: 76642; 77062; 77066; G0279

== ENCOUNTER → 2025-01-20 | Outpatient (CLI) | payer OTHER, SELFPAY ==
--- OUTSIDE RECORDS SUMMARY | 2025-01-20 10:17 | XMS RPT_ITS | CCD ---
Author Organization [facility] Care Team Providers Care Corporate Strategy Analyst Name Role Phone NO, DOCTOR ON Consulting Unavailable VACCCAS BAIG Admitting Unavailable VACCARICAS NEVAREZ Attending Unavailable DARNELL HART MD Referring Unavailable VACCJOVANNI, CAS Primary Care Unavailable Care Physician, No Primary Primary Care Provider Unavailable Care Physician, No Primary Referring Provider Un available CONSUELO Barth Attending Provider [phone] Care Physician, No Primary Primary Care Provider Unavailable Care Physician, No Primary Referring Provider Un available CONSUELO Barth Attending Provider [phone] CONSUELO Felipe Attending Provider [phone] Care Physician, No Primary Primary Care Provider Unavailable Care Physician, No Primary Referring Provider Un available CONSUELO Barth Attending Provider Care Physician, No Primary Primary Care Provider Unavailable Care Physician, No Primary Referring Provider Un available CONSUELO Barth Attending Provider Dr. Breanna Merritt Attending Provider [phone] Dr. Argentina Soler Attending Provider [phone] Eric [employer] INSURANCE CLAIM EXAMINER, EDDY-Virgilio Blake Attending Provider [phone] Dr. Argentina Soler Referring Provider [phone] Dr. Argentina Soler Other Provider Care Physician, No Primary Primary Care Provider Unavailable Care Physician, No Primary Referring Provider Un available Care Physician, No Primary Primary Care Provider Unavailable Care Physician, No Primary Referring Provider Un available CONSUELO Barth Attending Provider [phone] Breanna Merritt Attending Provider [phone] Dr. Argentina Soler Attending Provider [phone] Eric [employer] INS[employer] CLAIM EXAMINER, HEIDI Blake Attending Provider [phone] Argentina Soler Referring Provider [phone] Dr. Argentina Soler Other Provider CONSUELO Barth Referring Provider [phone] Tab, CONSUELO Arevalo Other Provider [phone] Tab, CONSUELO Arevalo Admit Provider CONSUELO Felipe Attending Provider [phone] Care Physician, No Primary Primary Care Provider Unavailable Care Physician, No Primary Referring Provider Un available Dayana Felipe CNM Attending Provider [phone] Care Physician, No Primary Primary Care Unava ilable Celso, Clifton Peres Referring Unavailable Celso, Clifton Peres Attending Unavailable Care Physician, No Primary Primary Care Unava ilable Celso, Clifton Peres Attending Unavailable Celso, Clifton Peres Admitting Unavailable AndreiMiguel francis Referring Unavailable Care Physician, No Primary Primary Care Unava ilable Dayana Felipe Referring Unavailable Dayana Felipe Attending Unavailable Care Physician, No Primary Primary Care Unava ilable Dayana Felipe Attending Unavailable Care Physician, No Primary Referring Unava ilable Medications Current Medications Medication Drug Class(es) Dates Sig (Normalized) Sig (Original) Vit,Fbqn96-Acsm-Fkd ic (11 sources) Start: 04-14-2018 take 1 tablet by mouth once daily Vit,Nlgv81-Ytwx-Ez lic Active 1 TABLET PO DAILY April 14, 2018 12:00am Start: 04-14-2018 take 1 tablet by elzbieta th once daily Vit,Dldm69-Qhth-Evieb Active 1 TABLET PO DAILY April 14, 2018 1:00am Completed/Discontinued Medications Medication Drug Class(es) Dates Sig (Normalized) Sig (Original) Blood-Glucose Meter (Freestyle Precision Conrad Meter) misc (12 sources) Start: 09-05-2020 End: 12-31-2020 Blood-Glucose Meter (Freestyle Precision Conrad Meter) misc Discontinued 0 .ROUTE .MEDSUPPLY September 04, 2020 11:00pm December 31, 2020 10:19am As directed Start: 09-05-2020 End: 12-31-2020 Blood-Glucose Meter (Freesty le Precision Conrad Meter) misc Discontinued 0 .ROUTE .MEDSUPPLY 1 September 05, 2020 12:00am December 31, 2020 11:19am As directed Blood-Glucose Meter (Truetra ck Blood Glucose System) kit (12 sources) Start: 08-29-2020 End: 12-31-2020 Blood-Glucose Meter (Truetra ck Blood Glucose System) kit Discontinued 0 .ROUTE .MEDSUPPLY 1 August 29, 2020 12:00am December 31, 2020 11:19am As directed Start: 08-29-2020 End: 12-31-2020 Blood-Glucose Meter (Truetra ck Blood Glucose System) kit Discontinued 0 .ROUTE .MEDSUPPLY 1 August 28, 2020 11:00pm December 31, 2020 10:19am As directed Start: 08-29-2020 End: 12-31-2020 Blood-Glucose Meter (Truetra ck Blood Glucose System) kit Discontinued 0 .ROUTE .MEDSUPPLY 1 August 29, 2020 12:00am December 31, 2020 11:19am As directed ibuprofen 600 mg oral tablet (1 source) Nonsteroidal Anti-inflammatory Drug Start: 07-05-2024 End: 12-16-2024 take 1 tablet by mouth every six hours as needed for pain Ibuprofen 600 mg tablet Discontinued 600 mg PO EVERY 6 HOURS as needed for fever or pain 20 July 05, 2024 1:00am December 16, 2024 11:57am Vit,Suxz47-Fimn- Folic 1 TABLET tablet (1 source) Start: 04-14-2018 End: 07-04-2024 take 1 tablet by mouth once daily Vit,Wvqb50-Barc-Wy lic 1 TABLET tablet Discontinued 1 {tbl} PO DAILY April 14, 2018 1:00am July 04, 2024 10:02pm Problems Active Problems Problem Classification Problem Date Documented Date Episodic/Chronic Anxiety disorders (12 sources) Anxiety; Translations: [Anxiety disorder, unspecified] 11-19-2020 Chronic Comment on above: h/o post anxi ety- currently not on any medication and is doing well. Diabetes or abnormal glucose tolerance complicating ; childbirth; or the puerperium (20 sources) Hyperglycemic disorder in ; Translations: [Abnormal glucose complicating ] 10-26-2020 Episodic Comment on above: referral sent to [facility] and[facility] and Dr. Ramos; needs growth US at 36w (declined), delivery by 40w early glucose-passed Genitourinary symptoms and ill-defined conditions (1 source) Urinary incontinence; Translations: [Unspecified urinary incontinence] 10-02-2023 Chronic Comment on above: PFPT referral recomm ended, desires to trial at home exercises first. Hemorrhage during ; abruptio placenta; placenta previa (20 sources) Low lying placenta; Translations: [Low lying placenta NOS or without hemorrhage, second trimester] 04-13-2023 Episodic Comment on above: 1.2cm from os. repea t at 28 weeks- RESOLVED Nonmalignant breast conditions (3 sources) Breast lump; Translations: [Unspecified lump in unspecified breast] Onset: 01-13-2025 12-16-2024 Episodic Comment on above: right side- mammogra m ordered. family hx breast cancer Other complications of (12 sources) High risk ; Translations: [Supervision of high risk , unspecified, unspecified trimester] 11-19-2020 Episodic Comment on above: PRR (SP labs) E DD 11/21/20 surprisePC: Roland Spouse: Ameena Other complications of (12 sources) Abdominal pain in ; Translations: [Other specified related conditions, unspecified trimester] 04-11-2020 Episodic Other complications of (20 sources) History of hemorrhage; Translations: [Supervision of with other poor reproductive or obstetric history, unspecified trimester] 11-19-2020 Episodic Comment on above: d/t retained placent a. Required GET from birthing center to hospital, 2 U PRBC and D&C. Other and delivery including normal (20 sources) Vaginal delivery; Translations: [Encounter for full-term uncomplicated delivery] 11-19-2020 Episodic Comment on above: 40 IAL SM boy No ah GDMA1 PRR CAROLINA 4 Tl Diaz. sp: mAeena. IAL at term. 08/18/23 Melvin Poole declines genetic, ca rrier and NTD neg GBS. declines ni pt and carrier. declines afp., nl 3 HR GTT and anatomy. Other screening for suspected conditions (not mental disorders or infectious disease) (4 sources) No liquor observed vaginally ; Translations: [Encounter for suspected problem with amniotic cavity and membrane ruled out] 08-19-2023 Episodic Comment on above: ROM plus negative. c at 1 tracing. d/c home Polyhydramnios and other problems of amniotic cavity (1 source) Spontaneous rupture of membranes 08-20-2023 Episodic Comment on above: at 1900 clear. Residual codes; unclassified (12 sources) Family history of neurological disorder; Translations: [Family history of other congenital malformations, deformations and chromosomal abnormalities] 11-19-2020 Episodic Comment on above: 's 1st Cousin Residual codes; unclassified (12 sources) Gestation period, 37 weeks; Translations: [37 weeks gestation of ] 11-19-2020 Episodic Comment on above: electronic covid kalpesh t ordered 09/26/20 (scheduled for 11/16/20 at 1410) Residual codes; unclassified (12 sources) Tetanus diphtheria and acellular pertussis vaccination declined; Translations: [Immunization not carried out because of patient refusal] 10-26-2020 Episodic Residual codes; unclassified (12 sources) FH: Congenital heart disease; Translations: [Family history of other congenital malformations, deformations and chromosomal abnormalities] 11-19-2020 Episodic Comment on above: Patient's 1st cousin (she has since passed d/t cardiac issue) Residual codes; unclassified (12 sources) Family history of cleft palate; Translations: [Family history of other congenital malformations, deformations and chromosomal abnormalities] 11-19-2020 Episodic Comment on above: 's 1st cousin Residual codes; unclassified (20 sources) Personal history of other complications of , childbirth and the puerperium; Translations: [Personal history of other genital system and obstetric disorders] 01-16-2023 Episodic Residual codes; unclassified (15 sources) Family history of other congenital malformations, deformations and chromosomal abnormalities; Translations: [Family history of congenital anomalies] 01-16-2023 Episodic Past or Other Problems Problem Classification Problem Date Documented Da te Episodic/Chronic Abdominal pain (1 source) Unspecified abdominal pain; Translations: [Unspecified abdominal pain] Onset: 07-27-2024 Episodic Calculus of urinary tract (2 sources) Kidney stone; Translations: [Calculus of kidney] Onset: 07-26-2024 07-13-2024 Episodic Other complications of (12 sources) H/O: blood transfusion; Translations: [Supervision of with other poor reproductive or obstetric history, unspecified trimester] Onset: 06-08-2019 08-10-2020 Episodic Comment on above: Post hemorrha ge- received 2 units Unclassified (10 sources) Normal labor; Translations: [Active labor at term] 11-19-2020 Results Test Name Value Interpretation Reference Range Facility Breast Limited Unilateralon 01-09-2025 Breast Limited Unilateral [facility] Services [address] [place] [address] Breast Limited Unilateral MR#: [id number] Acct: [id number] Name: RAY GONG Rep #: [id number] : 1995 F 29 From: Heather Mina PCP: Care Physician,No Primary Status: REG CLI Study: Breast Limited Unilateral Date of Exam: Exam# [id number] Ordering Dr: Dayana Felipe CNM PROCEDURE: BREAST LIMITED UNILATERAL 01/09/2025 REASON FOR EXAM: F, Age 29 y/o , RIGHT BREAST LUMP Right breast palpable lump. Palpable abnormality is painful. Evaluate. History of mastitis. Patient stopped 2 months ago. Patient's mother was diagnosed with breast cancer at the age of 47. Patient's maternal grandmother was diagnosed with breast cancer in her 40s. COMPARISON: Mammogram dated 09/2024. TECHNIQUE: BREAST LIMITED UNILATERAL FINDINGS: There is no ultrasound abnormality in the right breast to correlate to the palpable area that is painful. This area is located in the superior aspect of the breast. This area appears to represent a ridge of normal breast tissue. No suspicious solid or cystic masses are seen in this location. There is no mass to suggest abscess. There are no worrisome masses to suggest malignancy. The skin is not abnormally thickened. US/Breast Limited Unilateral IMPRESSION: The palpable abnormality appears to represent a ridge of normal breast tissue. The patient was encouraged to continue performing monthly self-breast exams. If this area does increase in size, further workup with breast MRI should be considered. Otherwise, no further workup is indicated at this time. BI-RADS 1: NEGATIVE RECOMMENDATION: OTHER Reading Location: [id number] CC: CONSUELO Felipe; No Primary Care Physician Resawyer: Signed [facility] DIAG MAMM W/CAD, BILATon DIAG MAMM W/CAD, BILAT [facility] Imaging Services [address] [place], [place] [address] DIAG MAMM W/CAD, BILAT MR#: [id number] Acct: [id number] Name: RAY GONG Rep #: [id number] : 1995 F 29 From: Heather Mian PCP: Care Physician,No Primary Status: REG CLI Study: DIAG MAMM W/CAD, BILAT Date of Exam: 01/09/25 Exam# [id number] Ordering Dr: Dayana Felipe CNM EXAM: DIAG MAMM W/CAD, BILAT 01/09/2025 CLINICAL HISTORY: F, Age 29 y/o , RIGHT BREAST LUMP. Palpable lump is painful. History of mastitis. Patient quit breast-feeding a couple of months ago. Patient's mother and grandmother were diagnosed with breast cancer. TECHNIQUE: DIAG MAMM W/CAD, BILAT. Fareed images were performed. COMPARISON: None. FINDINGS: TISSUE DENSITY: The breasts are extremely dense, which lowers the sensitivity of mammography. Bilateral Breast Mammographic Findings: There is no mammographic abnormality in the right breast to correlate to the palpable abnormality that is painful. The breast tissue in this location is extremely dense which could obscure an underlying abnormality correlating to this area. Further workup with ultrasound will be performed for further evaluation. Benign vascular calcifications and round microcalcifications are seen in both breasts. No suspicious masses, suspicious cluster of microcalcifications, architectural distortion or secondary sign of malignancy is identified in either breast. The fareed images do not demonstrate any mammographic abnormality. BI/DIAG MAMM W/CAD, BILAT IMPRESSION: There is no mammographic abnormality in the right breast to correlate to the palpable abnormality that is painful. The breast tissue in this location is extremely dense which could obscure an underlying abnormality correlating to this area. Further workup with ultrasound will be performed for further evaluation. OVERALL FINAL ASSESSMENT BI-RADS 0: INCOMPLETE - NEED ADDITIONAL IMAGING EVALUATION. RECOMMENDATION: Ultrasound Recommended A letter with findings and recommendations will be mailed to the patient. Reading Location: [id number] CC: CONSUELO Felipe; No Primary Care Physician Resawyer: Signed [facility] Veterinarian Laboratory Animal Care Office Visit Reporton 12-16-2024 Veterinarian Laboratory Animal Care Office Visit Report [facility] [address], [address] [place] [address] OFFICE VISIT Date of Service: 12/16/24 MR#: [id number] Acct: [id number] Name: RAY GONG Rep #: [id number] : 1995 Provider: CONSUELO Holland ams Age/Sex: 29/F Location: [facility] Status: Signed Intake Vital Signs 07/04/24 23:24 12/16/24 09:29 12/16/24 11:53 Height 5 ft 4 in 5 ft 4 in 5 ft 4 in Weight: 129 lb 2 oz BMI 22.1 BP 119/80 Intake Visit Reasons: Right breast lump, family hx breast ca. Chief Complaint: Right Breast Lump Roller Maker Required: No Is patient in pain?: No Allergies No Known Allergies Allergy (Verified 12/16/24 11:50) Is last menstrual period known: Yes Last Menstrual Period: 12/11/24 Post menopausal: No Patient : No : No Control Method: NFP [facility] Medical History History of blood transfusion SROM (spontaneous rupture of membranes) hemorrhage depression Active labor at term Hyperglycemia in Family history of neural tube defect Family history of congenital heart defect Family history of cleft palate Anxiety Surgical History H/O dilation and curettage ( 08/2018) Family History Mother Breast cancer, Onset Age: 50 Grandfather Cancer Grandmother Breast cancer, Onset Age: 50 Social History household members: family housing: house number of children: 1 Smoking Status: Never smoker second hand exposure: No alcohol intake: never substance use type: does not use seatbelt use: always do you feel safe at home: Yes additional social history: [employer] HPI Right breast lump, family hx breast ca. Details: RAY GONG is a 29 year old who presents for right breast lump. Started menses on thursday and noticed a lump in the right breast yesterday. Is not tender. No skin changes, dimpling or nipple discharge. Did stop breast feeding 2 months ago. Does family hx of breast cancer. Female Reproductive History Last Menstrual Period: 12/11/24 Cycle Length: 21-35 History 3 Elective abortions Hx Para 2 Spontaneous abortions Hx # Term Pregnancies Ectopic pregnancies Hx # Pregnancies Multiple births # of living children 3 Past Pregnancies Del. Date Name GA/Weeks Outcome Route Bth Weight Infant Gen Labor Lgth Anesthesia Del Locatn Provider FOB 08/19/18 Roland 40 live - full term 8lbs 15oz Male 8 hours none [facility] [place] 11/19/20 Tl 39 live - full term Male [facility] Kassandra [facility]thony [facility] [facility] SHAYLA Ameena Delivery Date: 08/19/18 Last Updated by: Elise Carpenter hemorrhage- retained placenta, post dilation and curettage; blood transfusion- received 2 units of blood at [facility] Delivery Date: 08/17/23 Last Updated by: Brenda Farrar, RN See problem list for complications. ROS Const Constitutional: Reports system reviewed and no additional complaints, except as documented Resp Resp: Reports system reviewed and no additional complaints, except as documented GI GI: Reports system reviewed and no additional complaints, except as documented : Reports system reviewed and no additional complaints, except as documented Musc Musc: Reports system reviewed and no additional complaints, except as documented Skin Skin/Breast: Reports system reviewed and no additional complaints, except as documented Psych Psych: Reports system reviewed and no additional complaints, except as documented Exam Const General: cooperative, healthy appearing and comfortable Neck Neck: normal visual inspection and full ROM Chest Chest palpation inspection: normal inspection of the chest and normal palpation of entire chest wall Breast inspection: normal inspection of the breasts and normal inspection of the axillae Breast palpation: normal palpation of the breasts and normal palpation of the axillae Resp Effort Inspection: normal respiratory effort and able to speak in complete sentences GI Inspection: normal to inspection Skin General: no rashes or lesions noted Lesions: no lesions Rashes: no rashes Neuro General: patient alert, patient awake and patient oriented x3 Cognition: normal cognition Speech: speech normal Gait: normal gait Extrem General: normal to inspection and full ROM Psych Appearance: grossly normal Mental Status: mental status grossly normal Mood: congruent mood Affect: normal affect Speech and Movement: speech and movement normal Attitude: cooperative Tho (more content not included)... [facility] Calculi, Urinary w / Photoon 07-18-2024 . Comment Normal . [facility] Comment on above: Result Comment: Perc entage (Represents the % composition) Performed By: #### L 3650.0100 ####[facility] [address] [place], [address] 2,8 Dihydroxyad TNP Normal . [facility] Comment on above: Performed By: #### L 0.0100 ####[facility] [address] [place], [address] AMM ACID URATE TNP Normal . [facility] Comment on above: Performed By: #### L 0.0100 ####[facility] [address] [place], [address] Bilirubin Ql (U) TNP Normal . [facility] Comment on above: Performed By: #### L 3650.0100 ####[facility] [address] [place], [address] CA BILIRUBINATE TNP Normal . [facility] Comment on above: Performed By: #### L 0.0100 ####[facility] [address] [place], [address] CA CARBONATE TNP Normal . [facility] Comment on above: Performed By: #### L 3650.0100 ####[facility] [address] [place], [address] CA HYDROG PHOS TNP Normal . [facility] Comment on above: Performed By: #### L 3649.0100 ####[facility] [address] [place], [address] CA OXAL DIHYDR TNP Normal . [facility] Comment on above: Performed By: #### L 3649.0100 ####[facility] [address] [place], [address] CA OXAL MONOHYD TNP Normal . [facility] Comment on above: Performed By: #### L 3649.0100 ####[facility] [address] [place], [address] CA Palmitate TNP Normal . [facility] Comment on above: Performed By: #### L 3649.0100 ####[facility] [address] [place], [address] CA PHOS (hydro) 100 Normal . [facility] Comment on above: Performed By: #### L 3649.0100 ####[facility] [address] [place], [address] CA PHOSPHATE TNP Normal . [facility] Comment on above: Performed By: #### L 3649.0100 ####[facility] [address] [place], [address] CA Stearate TNP Normal . [facility] Comment on above: Performed By: #### L 3649.0100 ####[facility] [address] [place], [address] CELL MATERIAL TNP Normal . [facility] Comment on above: Performed By: #### L 3649.0100 ####[facility] [address] [place], [address] CHOLESTEROL TNP Normal . [facility] Comment on above: Performed By: #### L 3650.0100 ####[facility] [address] [place], [address] Color (U) Brown Normal . [facility] Comment on above: Performed By: #### L 3650.0100 ####[facility] [address] [place], [address] COMMENT Comment Normal . [facility] Comment on above: Result Comment: Calc ium phosphate (hydroxyl form) includes hydroxyapatite, amorphous calcium phosphate, and whitlockite. Hydroxyapatite is the most common of the calcium phosphate salts found in human kidney stones. Performed By: #### L 3650.0100 ####[facility] [address] [place], [address] Result Comment: Phys ician questions regarding Calculi Analysis contact [employer] at: [phone]. Result Comment: Calc taryn report will follow via computer, mail or retrofit installer delivery. COMMENT TNP Normal . [facility] Comment on above: Performed By: #### L 3650.0100 ####[facility] [address] [place], [address] CYSTINE TNP Normal . [facility] Comment on above: Performed By: #### L 3650.0100 ####[facility] [address] [place], [address] Disclaimer Comment Normal . [facility] Comment on above: Result Comment: This test was developed and its performance characteristics determined by [employer]. It has not been cleared or approved by the Food and Drug Administration. Performed at: [address] [id number] Fall Internship: Juana Gamez PhD, Phone: [phone] Performed By: #### L 3650.0100 ####[facility] [address] [place], [address] DRIED BLOOD TNP Normal . [facility] Comment on above: Performed By: #### L 3650.0100 ####[facility] [address] [place], [address] Drug/Metabolite TNP Normal . [facility] Comment on above: Performed By: #### L 3650.0100 ####[facility] [address] [place], [address] MAG JUANITA PHOS TNP Normal . [facility] Comment on above: Performed By: #### L 3650.0100 ####[facility] [address] [place], [address] NA ACID URATE TNP Normal . [facility] Comment on above: Performed By: #### L 3650.0100 ####[facility] [address] [place], [address] NEWBERYITE TNP Normal . [facility] Comment on above: Performed By: #### L 3650.0100 ####[facility] [address] [place], [address] Other Component TNP Normal . [facility] Comment on above: Performed By: #### L 3650.0100 ####[facility] [address] [place], [address] PHOTO Comment Normal . [facility] Comment on above: Result Comment: Phot ograph will follow under a separate cover Performed By: #### L 3650.0100 ####[facility] [address] [place], [address] SIZE 7x6 Normal . [facility] Comment on above: Result Comment: Pelon le piece received. Performed By: #### L 3650.0100 ####[facility] [address] [place], [address] SOURCE Comment Normal . [facility] Comment on above: Result Comment: Not provided Performed By: #### L 3650.0100 ####[facility] [address] [place], [address] TRIAMTERENE TNP Normal . [facility] Comment on above: Performed By: #### L 3650.0100 ####[facility] [address] [place], [address] URIC ACID TNP Normal . [facility] Comment on above: Performed By: #### L 3650.0100 ####[facility] [address] [place], [address] URIC ACID DIHYD TNP Normal . [facility] Comment on above: Performed By: #### L 3650.0100 ####[facility] [address] [place], [address] WEIGHT 114 mg Normal . [facility] Comment on above: Performed By: #### L 3650.0100 ####[facility] [address] [place], [address] XANTHINE TNP Normal . [facility] Comment on above: Performed By: #### L 3650.0100 ####[facility] [address] [place], [address] Surgery Specimen Level Ion 0 2- Surgery Specimen Level I ------- ---- Patient Age/Sex Location Account Attending Physician ---- RAY GONG LABSPEC [id number] Dr. Clifton Houston MD ---- Specimen: [id number] Received: 07/12/24 Status: JUDIT Gallegos Num: [id number] Spec Type: Calculi Subm Dr: Dr. Clifton Houston MD HEADER OPERATION: Not noted PRE-OP DIAGNOSIS: Calculus of kidney TISSUE SUBMITTED: Calculi ---- GROSS DIAGNOSIS A fragment of stone, clinically urinary calculus (gross only). Pauline 07/12/2024 COMMENT The calculus is submitted in its entirety for chemical stone analysis. The results from this study will be reported separately. GROSS DESCRIPTION Received without fixative labeled with the patient's name and designated ureteral calculi. The specimen consists of a piece of brown stone measuring 0.5 x 0.5 x 0.2 cm. The entire specimen is submitted for stone analysis. Pauline 07/12/2024 CPT: 71831 ---- Patient Age/Sex Location Account Attending Physician ---- RAY GONG LABSPEC [id number] Dr. Clifton Houston MD ---- Signed (signature on file) Dr. Chan Mina MD 07/13/24 1147 ---- Normal [facility] Comment on above: Performed By: #### P KIARA ####[facility] [address] [place], [address] Discharge Instructionon 06-09 Discharge Instruction [facility] Medical Records Department [address] [place] [address] Instructions for Home/Discharge Instructions 07/05/24 0731 MR#: [id number] Acct: [id number] Name: RAY GONG Rep #: [id number] : 1995 From: Clifton Houston MD PCP: Cary Physician,No Primary Status:ADM JANESSA Discharge Instructions Diet Discharge Diet: No restrictions DC O2, CPAP, BIPAP needs Home O2 Discharge instructions: No Dressing / Incision Discharge Activity: Return to Normal Activity and May Not Drive (while taking narcotic pain medications.) Dressing / Incision Call your doctor if you observe: Fever of 101 or Higher Follow Up Care Please Follow Up With: Clifton Houston MD When: Call [phone] for an appointment Test Results: Test results from this visit will be discussed in further detail at your follow-up appointment, if applicable. Discharge Plan Admission Admit Date/Time: 07/05/24 00:47 Attending Provider: Clifton Houston Primary Care Provider: Cary Holder,No Primary Discharge Orders/Prescriptions Prescriptions: No Action NK Referrals / Follow Up: Care Physician,No Primary [Primary Care Provider] - 07/05/24 0732 Clifton Houston MD CC: No Primary Care Physician Signed [facility] MR/POSTOP.[facility] 07-05-2024 MR/POSTOP.[facility] Medical Records Department [address] [place] [address] Anesthesia Postop Eval I 07/05/24 1308 MR#: [id number] Acct: [id number] Name: RAY GONG Rep #: [id number] : 1995 From: Mau Verdin CRNA PCP: Cary Physician,No Primary Status:ADM JANESSA Y Race: C Location: [place] [address] Anesthesia: Postop Eval I Current Vital Signs Temperature: 97.8 F Pulse Rate: 79 Blood Pressure: 103/71 Respiratory Rate: 20 Pulse Ox: 98 Assessment Airway patent: Yes Spontaneous unlabored respirations: Yes nausea: No Vomiting: No Anesthesia Complication: No Fluid Hydration Crystalloid volume administer (ml): 700 Total IV fluid infused: 700 Progress Note Anesthesia document: Postop Eval 1 completed: Yes 07/05/24 1309 Date Mau Verdin PANTOGRAPH TRANSFERRER Cosigner Signature: Date CC: Signed Normal [facility] MR/[id number] 07-05-2024 MR/POSTOPAN2 [facility] Medical Records Department [address] [place] [address] Anesthesia Postop Eval II 07/05/242252 MR#: [id number] Acct: [id number] Name: RAY GONG Rep #: [id number] : 1995 From: Carmelo Albright MD PCP: Care Physician,No Primary Status:DIS JANESSA Y Race: C [id number] Anesthesia Postop Eval I Sum Postop Eval Completion status Anesthesia document: Postop Eval 1 completed: Yes Anesthesia Postop Eval I Summary Anesthesia Postop Eval I Summary: Anesthesia Postop Eval I: Assessment Summary Airway patent Yes 07/05/24 13:08 PANTOGRAPH [email or web address].[email or web address] Spontaneous unlabored Yes 07/05/24 13:08 PANTOGRAPH [email or web address].PKEL respirations Mental status nausea No 07/05/24 13:08 PANTOGRAPH [email or web address].PKEL Vomiting No 07/05/24 13:08 PANTOGRAPH [email or web address].PKEL Anesthesia Postop Eval I: Fluid Summary Crystalloid volume administer 700 07/05/24 13:08 PANTOGRAPH [email or web address].PKEL (ml) Colloids volume administered ( ml) Blood Product volume administered (ml) Total IV fluid infused 700 07/05/24 13:08 PANTOGRAPH [email or web address].PKEL Anesthesia Postop Eval I: Summary Notes Anesthesia Complication No 07/05/24 13:08 PANTOGRAPH [email or web address].PKEL Anesthesia Complication Comment: Post-operative progress note Anesthesia: Postop Eval II Evaluation Mental status: Awake and Calm Pain Level: 2 nausea: No Vomiting: No Complications Anesthesia Complication: No 07/05/242252 Date Carmelo Albright MD Cosigner Signature: Date CC: Signed Normal [facility] Operative Reporton Operative Report [facility] Medical Records Department [address] [place] [address] Operative Report 07/05/24 1243 MR#: [id number] Acct: [id number] Name: RAY GONG Rep #: [id number] : 1995 From: Clifton Houston MD PCP: Care Physician,No Primary Status:ADM JANESSA Location: [address] Operative Report (Standard) Operative Information Date of Procedure: 07/05/24 Pre-Operative Diagnosis: right ureteral calculi Post-Operative Diagnosis: same Surgery/Procedure Performed: cystoscopy, and right stent placement oil pipeline operator: No Type of Anesthesia: General RN Documented Start/Stop Times: Operation Date: 07/05/24 12:30 Case Time Into Pre-Op 07/05/24 11:29 Out of Pre-Op 07/05/24 12:32 Procedure Start Time: 12:43 Procedure Stop Time: 12:54 Select all DRAINS/GRAFTS/IMPLANTS that apply: Drains Drain details: 6fr x 24 cm stent right Estimated Blood Loss: 0 Specimen collected: No Description of surgery: Patient was taken back to the operating room after induction of general anesthesia, the patient was placed in dorsolithotomy position. The urethra and genitals were prepped and draped in usual sterile fashion. Using a 21 Green[place]ic rigid cystourethroscope the entire length of the urethra was normal then went into the bladder. Identified the trigone the left and right ureteral orifice. I then cannulated the right ureteral orifice and advanced a wire up into the kidney. I then backloaded a 5 Green[place]ic open ended catheter over the wire and injected contrast to delineate the anatomy. After the retrograde was performed I then used fluoroscopic images and guidance to advanced a wire up into the kidney and over the 0.038 glidewire I advanced a 6 Green[place]ic by 24 cm double pigtail stent. I then pulled the 0.038 Glidewire off and the stent coiled in the kidney bladder good position. The bladder was then drained. We confirmed the position of the stent by fluoroscopy. Patient anesthetic was reversed and was taken back to the PACU in good condition. Surgical Findings: stone in distal ureter right Complications Complications: No Admit VTE Documentation VTE Present on Admission: No VTE Mechan Device Prophylaxis: SCD's VTE Pharm Prophylaxis ordered?: No 07/05/24 1254 Cosigner Signature (if applicable): CC: Dr. Clifton Houston MD; Dr. Miguel Forbes DO; No Primary Care Physician Signed Normal [facility] Abdomen/Pelvis without Conto n 07-04-2024 Abdomen/Pelvis without Cont [facility] Imaging Services [address] [place], [place] [address] Abdomen/Pelvis without Cont MR#: [id number] Acct: [id number] Name: RAY GONG Rep #: [id number] : 1995 F 29 From: Jessee Fan PCP: Care Physician,No Primary Status: REG ER Study: Abdomen/Pelvis without Cont Date of Exam: 06/09 12/30 Exam# [id number] Ordering Dr: Miguel Forbes DO [id number] INDICATION: Right flank pain EXAMINATION: CT ABDOMEN AND PELVIS WITHOUT CONTRAST - CT Abdomen And Pelvis W/O Contrast Injection TECHNIQUE: Helically acquired images were obtained of the abdomen and pelvis without oral or IV contrast. A radiation dose optimization technique was used for this scan. IV Contrast dosage and agent: None. Oral contrast: None. RADIATION DOSAGE (If Supplied By Facility): CTDIvol = ( 6.09 ) mGy, DLP = ( 282.92 ) mGycm COMPARISON: No pertinent previous examinations for comparison.. FINDINGS: LOWER CHEST: 1. Lung bases are clear. 2. No cardiomegaly or pericardial effusion. 3. No significant coronary vascular calcifications. LIVER: The liver has normal configuration and density given the limitation of noncontrast exam.. No focal mass. GALLBLADDER AND BILIARY TREE: No calcified gallstones. No gallbladder distension or wall edema. No intra- or extrahepatic biliary ductal dilation. PANCREAS: No focal cystic or solid mass. SPLEEN: Normal size without focal cystic or solid mass. ADRENAL GLANDS: No nodules. KIDNEYS AND URETERS: Kidneys have normal configuration, RIGHT kidney is mildly enlarged. There is marked hydronephrosis and hydroureter on the RIGHT to the level of the RIGHT UVJ where there is an obstructing coarse calcification measuring approximately 6 x 8 mm. Several smaller 2 to 3 mm nonobstructing calcifications in the calyces of both kidneys. No perinephric fluid collections. Normal appearance of the LEFT ureter and calyces.. PERITONEUM: No ascites or free air. No other fluid collection. BOWEL: No evidence of acute appendicitis. No stomach or bowel distension. No focal inflammatory change. LYMPH NODES: No enlarged mesenteric or retroperitoneal lymph nodes. VESSELS: Aorta is non-dilated. URINARY BLADDER: Bladder is mildly distended, coarse calcification at the RIGHT UVJ. No calcifications within the bladder lumen. No mass is noted. REPRODUCTIVE ORGANS: Normal appearance the uterus and pelvic sidewalls. No masses or abnormal fluid collections. ABDOMINAL WALL: No discrete abdominal or pelvic wall hernia. BONES: No lytic or blastic abnormality. CT/Abdomen/Pelvis without Cont IMPRESSION: 1. Marked hydronephrosis and hydroureter on the RIGHT contributed by an obstructing RIGHT UVJ calcification estimated at 6 x 8 mm. Multiple smaller nonobstructing calcifications in both kidneys. No obstructive changes on the LEFT. 2. No masses bowel obstruction abscess free fluid or free air. Normal appendix. 3. No evidence of cholelithiasis or ductal dilatation. Electronically Signed: Jessee Mendoza MD at 21:50 EST , CC: Dr. Miguel Forbes, DO; No Primary Care Physician Resawyer: Signed Normal [facility] CBC W/Diff, Automatedon 06-09 Absolute Lymph 2.45 X10 3/uL Normal 0.83-4.51 [facility] Comment on above: Performed By: #### L 100.0100, L700.6800, L500.4050 ####[facility] [address] [place], [address] Absolute Neut 5.4 X10 3/uL Normal 2.0-7.7 [facility] Comment on above: Performed By: #### L 100.0100, L700.6800, L500.4050 ####[facility] [address] [place], [address] Basophils/100 WBC (Bld) 0.2 % Normal 0-1 [facility] Comment on above: Performed By: #### L 100.0100, L700.6800, L500.4050 ####[facility] [address] [place], [address] Eosinophils/100 WBC (Bld) 0.5 % Normal 0-5 [facility] Comment on above: Performed By: #### L 100.0100, L700.6800, L500.4050 ####[facility] [address] [place], [address] Erythrocyte distribution width (RBC) [Ratio] 12.3 % Normal 11.6-14.6 [facility] Comment on above: Performed By: #### L 100.0100, L700.6800, L500.4050 ####[facility] [address] [place], [address] Hematocrit (Bld) [Volume fraction] 39.6 % Normal 37-47 [facility] Comment on above: Performed By: #### L 100.0100, L700.6800, L500.4050 ####[facility] [address] [place], [address] Hemoglobin (Bld) [Mass/Vol] 13.6 g/dL Normal 12.0-15.0 [facility] Comment on above: Performed By: #### L 100.0100, L700.6800, L500.4050 ####[facility] [address] [place], [address] IG% 0.300 Normal 0.0-0.9 [facility] Comment on above: Result Comment: IG% - Immature Granulocytes (promyelocytes, myelocytes and metamyelocytes) > 1% indicates that a LEFT SHIFT is Present. Performed By: #### L 100.0100, L700.6800, L500.4050 ####[facility] [address] [place], [address] Lymphocytes/100 WBC (Bld) 27.9 % Normal 19-41 [facility] Comment on above: Performed By: #### L 100.0100, L700.6800, L500.4050 ####[facility] [address] [place], [address] MCH (RBC) [Entitic mass] 30.6 pg Normal 27.0-32.0 [facility] Comment on above: Performed By: #### L 100.0100, L700.6800, L500.4050 ####[facility] [address] [place], [address] MCHC (RBC) [Mass/Vol] 34.3 g/dL Normal 32-36 [facility] Comment on above: Performed By: #### L 100.0100, L700.6800, L500.4050 ####[facility] [address] [place], [address] MCV (RBC) [Entitic vol] 89.0 fL Normal 81-99 [facility] Comment on above: Performed By: #### L 100.0100, L700.6800, L500.4050 ####[facility] [address] [place], [address] Monocytes/100 WBC (Bld) 9.8 % Normal 0-10 [facility] Comment on above: Performed By: #### L 100.0100, L700.6800, L500.4050 ####[facility] [address] [place], [address] Neutrophils/100 WBC (Bld) 61.3 % Normal 47-70 [facility] Comment on above: Performed By: #### L 100.0100, L700.6800, L500.4050 ####[facility] [address] [place], [address] Nucleated RBC (Bld) [#/Vol] 0 10*3/uL Normal 0-5 [facility] Comment on above: Performed By: #### L 100.0100, L700.6800, L500.4050 ####[facility] [address] [place], [address] Platelet mean volume (Bld) [Entitic vol] 8.4 fL Normal 6.2-12.0 [facility] Comment on above: Performed By: #### L 100.0100, L700.6800, L500.4050 ####[facility] [address] [place], [address] Platelets (Bld) [#/Vol] 208 10*3/uL Normal 150-450 [facility] Comment on above: Performed By: #### L 100.0100, L700.6800, L500.4050 ####[facility] [address] [place], [address] RBC (Bld) [#/Vol] 4.45 10*6/uL Normal 4.2-5.4 [facility] Comment on above: Performed By: #### L 100.0100, L700.6800, L500.4050 ####[facility] [address] [place], [address] RDW SD 40.4 fl Normal 35.1-43.9 [facility] Comment on above: Performed By: #### L 100.0100, L700.6800, L500.4050 ####[facility] [address] [place], [address] WBC (Bld) [#/Vol] 8.8 10*3/uL Normal 4.4-11.0 [facility] Comment on above: Performed By: #### L 100.0100, L700.6800, L500.4050 ####[facility] [address] [place], [address] Comprehensive Metabolic Prof ilon 07-04-2024 Albumin [Mass/Vol] 4.0 g/dL Normal 3.2-5.0 [facility] Comment on above: Performed By: #### L 100.0100, L700.6800, L500.4050 ####[facility] [address] [place], [address] Albumin/Globulin [Mass ratio] 1.0 {ratio} Normal 0.9-2.4 [facility] Comment on above: Performed By: #### L 100.0100, L700.6800, L500.4050 ####[facility] [address] [place], [address] ALK P 88 U/L Normal 45-117 [facility] Comment on above: Performed By: #### L 100.0100, L700.6800, L500.4050 ####[facility] [address] [place], [address] ALT [Catalytic activity/Vol] 17 U/L Normal 13-56 [facility] Comment on above: Performed By: #### L 100.0100, L700.6800, L500.4050 ####[facility] [address] [place], [address] AST [Catalytic activity/Vol] 16 U/L Normal 15-37 [facility] Comment on above: Performed By: #### L 100.0100, L700.6800, L500.4050 ####[facility] [address] [place], [address] Bilirubin [Mass/Vol] 0.60 mg/dL Normal 0.20-1.00 [facility] Comment on above: Result Comment: For patients on eltrombopag therapy, use of Dimension [place] TBIL is not recommended. Performed By: #### L 100.0100, L700.6800, L500.4050 ####[facility] [address] [place], [address] BUN/CRE 20.7 RATIO High 10-20 [facility] Comment on above: Performed By: #### L 100.0100, L700.6800, L500.4050 ####[facility] [address] [place], [address] CA,Total 9.7 mg/dL Normal 8.5-10.1 [facility] Comment on above: Performed By: #### L 100.0100, L700.6800, L500.4050 ####[facility] [address] [place], [address] Chloride [Moles/Vol] 103 mmol/L Normal 98-107 [facility] Comment on above: Performed By: #### L 100.0100, L700.6800, L500.4050 ####[facility] [address] [place], [address] CO2 [Moles/Vol] 27.0 mmol/L Normal 21.0-32.0 [facility] Comment on above: Performed By: #### L 100.0100, L700.6800, L500.4050 ####[facility] [address] [place], [address] Creatinine [Mass/Vol] 0.58 mg/dL Normal 0.55-1.02 [facility] Comment on above: Result Comment: The validity of the calculated GFR GFRAA in patients over 70 years has not been determined. Clinical correlation is essential. Performed By: #### L 100.0100, L700.6800, L500.4050 ####[facility] [address] [place], [address] ECRCL 124.70 ml/min Normal [facility] Comment on above: Performed By: #### L 100.0100, L700.6800, L500.4050 ####[facility] [address] [place], [address] EST GFR - AA 158 mL/min Normal >60 [facility] Comment on above: Result Comment: Afri can [place] GFR Calc Performed By: #### L 100.0100, L700.6800, L500.4050 ####[facility] [address] [place], [address] GAP 7 Normal 5-15 [facility] Comment on above: Performed By: #### L 100.0100, L700.6800, L500.4050 ####[facility] [address] [place], [address] GFR/1.73 sq M.predicted among non-blacks MDRD (S/P/Bld) [Vol rate/Area] 131 mL/min/{1.73_m2} Normal >60 [facility] Comment on above: Result Comment: Non- GFR Calc Performed By: #### L 100.0100, L700.6800, L500.4050 ####[facility] [address] [place], [address] Globulin (S) [Mass/Vol] 4.0 g/dL Normal 2.2-4.2 [facility] Comment on above: Performed By: #### L 100.0100, L700.6800, L500.4050 ####[facility] [address] [place], [address] Glucose [Mass/Vol] 92 mg/dL Normal 74-106 [facility] Comment on above: Performed By: #### L 100.0100, L700.6800, L500.4050 ####[facility] [address] [place], [address] Potassium [Moles/Vol] 3.5 mmol/L Normal 3.5-5.1 [facility] Comment on above: Performed By: #### L 100.0100, L700.6800, L500.4050 ####[facility] [address] [place], [address] Sodium [Moles/Vol] 137 mmol/L Normal 136-145 [facility] Comment on above: Performed By: #### L 100.0100, L700.6800, L500.4050 ####[facility] [address] [place], [address] T PROT 8.0 g/dL Normal 6.4-8.2 [facility] Comment on above: Performed By: #### L 100.0100, L700.6800, L500.4050 ####[facility] [address] [place], [address] Urea nitrogen [Mass/Vol] 12 mg/dL Normal 7-18 [facility] Comment on above: Performed By: #### L 100.0100, L700.6800, L500.4050 ####[facility] [address] [place], [address] Emergency Department Summary on 07-04-2024 Emergency Department Summary [facility] Medical Records Department [address] [place] [address] Emergency Department Summary 07/04/24 MR#: [id number] Acct: [id number] Name: RAY GONG Rep #: [id number] : 1995 29 From: Miguel Forbes DO PCP: Care Physician,No Primary Status:ADM JANESSA Location: MS3 QU821-8 HPI HPI - Female History of Present Illness Chief Complaint: Flank Pain PFSH PFSH Medical History History of blood transfusion SROM (spontaneous rupture of membranes) hemorrhage depression Active labor at term Hyperglycemia in Family history of neural tube defect Family history of congenital heart defect Family history of cleft palate Anxiety Home Medications ???Medication ???Instructions ???Recorded ???Last Taken ???Type NK 07/04/24 Unknown History Allergy/AdvReac Type Severity Reaction Status Date / Time No Known Allergies Allergy Verified 07/04/24 19:31 Family History Mother Breast cancer Grandfather Cancer Grandmother Breast cancer Surgical History H/O dilation and curettage ( 08/2018) Social History household members: family housing: house number of children: 1 Smoking Status: Never smoker second hand exposure: No alcohol intake: never substance use type: does not use seatbelt use: always do you feel safe at home: Yes additional social history: [employer] EXAM Physical Exam Const Vital Signs: 07/04/24 19:29 07/04/24 21:29 07/04/24 22:30 Temperature 98.1 F Temperature Source Oral Pulse Rate 88 87 101 H Respiratory Rate 18 16 16 Blood Pressure 137/98 H 131/89 H Blood Pressure Mean 111 103 Pulse Ox 100 97 98 Oxygen Delivery Method Room Air Room Air Room Air 07/04/24 22:48 Temperature 97.5 F L Temperature Source Pulse Rate 103 H Respiratory Rate 17 Blood Pressure 136/82 H Blood Pressure Mean 100 Pulse Ox 98 Oxygen Delivery Method MDM MDM MDM Narrative Medical decision making narrative: HISTORY OF PRESENT ILLNESS: 29-year-old female presents concern for right flank and right lower abdominal pain. She notes pain radiates to bladder. She notes this began yesterday. Is slightly improved. Denies nausea vomiting today. Denies history of kidney stones. Denies hematuria. No falls or trauma. REVIEW OF SYSTEMS: Pertinent positives: Flank pain Pertinent negatives: Hematuria PHYSICAL EXAM: Nursing triage notes reviewed, Vital signs reviewed Constitutional: please see mdm HENT: MMM Eyes: Pupils equal round and reactive to light, Extraocular muscles intact Neck: No stridor, no JVD, full neck ROM Lungs: Clear to auscultation, No wheezing or rales. No increased work of breathing, no conversational dyspnea, no accessory muscle use, no nasal flaring. No respiratory distress noted Heart: Regular rate and rhythm, No murmurs, No rubs and No gallops, 2+ distal pulses (radial, femoral, posterior tibial) in all extremities Abdomen: Soft, there is no tenderness, rigidity, rebound or guarding, no obvious peritoneal signs, no palpable pulsatile abdominal masses, no auscultated abdominal bruit : No CVAT Extremities: No edema Neuro: No new focal neurological deficits, cranial nerves II through XII intact, 5/5 strength in all present extremities. Intact sensation to light touch in all present extremities, 2+ reflexes bilateral patella tendons. Skin: No rash or lesions noted MEDICAL DECISION MAKING: Chief Complaint: Flank External records reviewed: Prior imaging reviewed Factors affecting care: no dilation curettage Social determinants of health: none History obtained from others: none Consults: Urology (Dr. Houston) [facility] Narrative: Patient was initially hemodynamically stable, afebrile and nontoxic-appearing. There is no CVA tenderness noted. No pulsatile abdominal masses. I considered the following differential diagnosis: Kidney stone, AAA, musculoskeletal etiology, pyelonephritis, UTI ALL IMAGES (IF OBTAINED) HAVE BEEN PERSONALLY REVIEWED AND INTERPRETED BY MYSELF. CBC without leukocytosis, severe anemia, no thrombocytopenia. Urinalysis with evidence of hematuria and slight inflammation but no sign of UTI to suggest pyelonephritis CT scan of the abdomen pelvis with a 6 x 8 mm stone Urine test is negative Discussed case with urologist on-call Dr. Houston who recommended admitting to the service for pain control and possible operative management. The patient and/or family, caregivers express understanding. The patient and/or family, caregivers agrees with the plan. (more content not included)... Normal [facility] ,Serum,hCG Quali.on 07-04-2024 HCG, SERUM QUAL Negative Normal [facility] Comment on above: Performed By: #### L 100.0100, L700.6800, L500.4050 ####[facility] [address] [place], [address] Urinalysis, Completeon 07-04 EPI,SQUAMOUS 0-5 SEEN Normal 5-10 [facility] Comment on above: Order Comment: CLEAN CATCH Performed By: #### L 400.0001 ####[facility] [address] [place], [address] RBC 0-5 SEEN Normal 0-5 [facility] Comment on above: Order Comment: CLEAN CATCH Performed By: #### L 400.0001 ####[facility] [address] [place], [address] WBC 0-5 SEEN Normal 0-5 [facility] Comment on above: Order Comment: CLEAN CATCH Performed By: #### L 400.0001 ####[facility] [address] [place], [address] BACTERIA 0 SEEN Normal None Seen [facility] Comment on above: Order Comment: CLEAN CATCH Performed By: #### L 400.0001 ####[facility] [address] [place], [address] Mucus Ql (Urine sed) 0 SEEN Normal [facility] Comment on above: Order Comment: CLEAN CATCH Performed By: #### L 400.0001 ####[facility] [address] [place], [address] Absolute lymphocyte countOrd ered By: Irina Barth on 08-17-2023 Lymphocytes Auto (Unsp spec) [#/Vol] 2.50 10*3/uL 0.83-4.51 [facility] Automated lymphocyte count a s percentage of total leukocytesOrdered By: Irina Barth on 08-17-2023 Lymphocytes/100 WBC Auto (Unsp spec) 21.1 % 19-41 [facility] Basophil percentageOrdered B y: Irina Barth on 03-11-2024 Basophils/100 WBC (Bld) 0.2 % 0-1 [facility] Eosinophils/100 WBC (Bld) 0.2 % 0-5 [facility] Hemoglobin (Bld) [Mass/Vol] 12.7 g/dL 12.0-15.0 [facility] Monocytes/100 WBC (Bld) 7.7 % 0-10 [facility] Neutrophils (Bld) [#/Vol] 8.4 10*3/uL 2.0-7.7 [facility] Neutrophils/100 WBC (Bld) 70.4 % 47-70 [facility] WBC (Bld) [#/Vol] 11.9 10*3/uL 4.4-11.0 [facility] Determination of erythrocyte mean corpuscular volume (MCV)Ordered By: Irina Barth on 08-17-2023 MCV (RBC) [Entitic vol] 93.2 fL 81-99 [facility] Erythrocyte distribution wid th ratioOrdered By: Irina Barth on 08-17-2023 Erythrocyte distribution width (RBC) [Ratio] 13.0 % 11.6-14.6 [facility] Erythrocyte distribution wid th standard deviationOrdered By: Irina Barth on 08-17-2023 Erythrocyte distribution width (RBC) [Entitic vol] 44.0 fL 35.1-43.9 [facility] Hematocrit Auto (Bld) [Volum e fraction]Ordered By: Irina Barth on 08-17-2023 Hematocrit (Bld) [Volume fraction] 37.2 % 37-47 [facility] Immature granulocytes/100 WB C Auto (Bld)Ordered By: Irina Barth on 08-17-2023 Immature granulocytes/100 WBC (Bld) 0.400 % 0.0-0.9 [facility] Comment on above: IG% - Immature Granu locytes (promyelocytes, myelocytes and metamyelocytes) > 1% indicates that a LEFT SHIFT is Present. Laboratory - Hematology and Cell countsOrdered By: Irina Barth on 08-17-2023 MCH (RBC) [Entitic mass] 31.8 pg 27.0-32.0 [facility] MCHC (RBC) [Mass/Vol] 34.1 g/dL 32-36 [facility] Nucleated RBC/100 WBC (Bld) [Ratio] 0 % 0-5 [facility] Platelet mean volume (Bld) [Entitic vol] 9.2 fL 6.2-12.0 [facility] Platelets (Bld) [#/Vol] 200 10*3/uL 150-450 [facility] RBC Auto (Bld) [#/Vol]Ordere d By: Irina Barth on 08-17-2023 RBC (Bld) [#/Vol] 3.99 10*6/uL 4.2-5.4 [facility] Serum Treponema species anti body detectionOrdered By: Irina Barth on 08-17-2023 Treponema sp Ab Ql (S) Non-Reactive [facility] Laboratory - Chemistry and C hemistry - challengeon 08-12-2023 Glucose Ql (U) Negative [facility] Laboratory - Urinalysison Protein Ql (U) Negative [facility] No Panel InformationOrdered By: Irina Barth on 08-09-2023 Vaginal Amniotic Fluid Detection Negative Negative [facility] Comment on above: Amniotic fluid not p resent indicates No Rupture of FetalMembranes at time of specimen collection. Laboratory - Chemistry and C hemistry - challengeon 08-05-2023 Glucose Ql (U) Negative [facility] Laboratory - Urinalysison Protein Ql (U) Negative [facility] Laboratory - Chemistry and C hemistry - challengeon 07-30-2023 Glucose Ql (U) Negative [facility] Laboratory - Urinalysison Protein Ql (U) Negative [facility] Laboratory - Chemistry and C hemistry - challengeon 07-21-2023 Glucose Ql (U) Negative [facility] Laboratory - Urinalysison Protein Ql (U) Negative [facility] No Panel InformationOrdered By: Lou Reyes on 07-21-2023 Group B Streptococcus Culture Group B Beta Streptococcus is not isolated. [facility] Group B Streptococcus Culture Group B Beta Streptococcus is not isolated. [facility] Laboratory - Chemistry and C hemistry - challengeon 07-01-2023 Glucose Ql (U) Negative [facility] Laboratory - Urinalysison Protein Ql (U) Negative [facility] Laboratory - Chemistry and C hemistry - challengeon 06-19-2023 Glucose Ql (U) Negative [facility] Laboratory - Urinalysison Protein Ql (U) Negative [facility] Laboratory - Chemistry and C hemistry - challengeon 06-05-2023 Glucose Ql (U) Negative [facility] Laboratory - Urinalysison Protein Ql (U) Negative [facility] Laboratory - Chemistry and C hemistry - challengeon 05-22-2023 Glucose Ql (U) Negative [facility] Laboratory - Urinalysison Protein Ql (U) Negative [facility] Absolute lymphocyte countOrd ered By: Dayana Felipe on 05-08-2023 Lymphocytes Auto (Unsp spec) [#/Vol] 1.85 10*3/uL 0.83-4.51 [facility] Basophil percentageOrdered B y: Dayana Felipe on 05-08-2023 Basophils/100 WBC (Bld) 0.2 % 0-1 [facility] Eosinophils/100 WBC (Bld) 0.2 % 0-5 [facility] Neutrophils (Bld) [#/Vol] 8.1 10*3/uL 2.0-7.7 [facility] Neutrophils/100 WBC (Bld) 76.9 % 47-70 [facility] WBC (Bld) [#/Vol] 10.5 10*3/uL 4.4-11.0 [facility] Blood erythrocytes count (nu mber/volume)Ordered By: Dayana Felipe on 05-08-2023 RBC (Bld) [#/Vol] 3.96 10*6/uL 4.2-5.4 [facility] Blood hemoglobin measurement (mass/volume)Ordered By: Dayana Felipe on 05-08-2023 Hemoglobin (Bld) [Mass/Vol] 13.0 g/dL 12.0-15.0 [facility] Blood lymphocytes/100 leukoc ytesOrdered By: Dayana Felipe on 05-08-2023 Lymphocytes/100 WBC (Bld) 17.6 % 19-41 [facility] Blood monocytes/100 leukocyt esOrdered By: Dayana Felipe on 05-08-2023 Monocytes/100 WBC (Bld) 4.7 % 0-10 [facility] Blood platelet mean volumeOr dered By: Dayana Felipe on 05-08-2023 Platelet mean volume (Bld) [Entitic vol] 9.2 fL 6.2-12.0 [facility] Determination of erythrocyte mean corpuscular volume (MCV)Ordered By: Dayana Felipe on 05-08-2023 MCV (RBC) [Entitic vol] 96.2 fL 81-99 [facility] Gestational diabetes screen 1-hour screen with 50g oral glucose loadOrdered By: Dayana Felipe on 05-08-2023 Glucose 1 Hr post 50 g glucose PO [Mass/Vol] 105 mg/dL 70-140 [facility] HIV 1 and HIV-2 antibody ass ay with HIV-1 p24 antigen detectionOrdered By: Dayana Felipe on 05-08-2023 HIV 1+2 Ab+HIV1 p24 Ag IA Ql Non-Reactive Nonreactive [facility] Hematocrit Auto (Bld) [Volum e fraction]Ordered By: Dayana Felipe on 05-08-2023 Hematocrit (Bld) [Volume fraction] 38.1 % 37-47 [facility] Laboratory - Hematology and Cell countsOrdered By: Dayana Felipe on 05-08-2023 Erythrocyte distribution width (RBC) [Entitic vol] 47.1 fL 35.1-43.9 [facility] Erythrocyte distribution width (RBC) [Ratio] 13.2 % 11.6-14.6 [facility] Immature granulocytes/100 WBC (Bld) 0.400 % 0.0-0.9 [facility] Comment on above: IG% - Immature Granu locytes (promyelocytes, myelocytes and metamyelocytes) > 1% indicates that a LEFT SHIFT is Present. MCH (RBC) [Entitic mass] 32.8 pg 27.0-32.0 [facility] Nucleated RBC/100 WBC (Bld) [Ratio] 0 % 0-5 [facility] MCHC Auto (RBC) [Mass/Vol]Or dered By: Dayana Felipe on 05-08-2023 MCHC (RBC) [Mass/Vol] 34.1 g/dL 32-36 [facility] Platelets bldOrdered By: Jeffrey Felipe on 05-08-2023 Platelets (Bld) [#/Vol] 230 10*3/uL 150-450 [facility] Serum Treponema species anti body detectionOrdered By: Dayana Felipe on 05-08-2023 Treponema sp Ab Ql (S) Non-Reactive [facility] Laboratory - Chemistry and C hemistry - challengeon 04-10-2023 Glucose Ql (U) Negative [facility] Laboratory - Urinalysison Protein Ql (U) Negative [facility] Laboratory - Chemistry and C hemistry - challengeon 03-13-2023 Glucose Ql (U) Negative [facility] Laboratory - Urinalysison Protein Ql (U) Negative [facility] Absolute lymphocyte countOrd ered By: Irina Barth on 02-13-2023 Lymphocytes Auto (Unsp spec) [#/Vol] 1.88 10*3/uL 0.83-4.51 [facility] Basophil percentageOrdered B y: Irina Barth on 02-13-2023 Basophils/100 WBC (Bld) 0.0 % 0-1 [facility] Eosinophils/100 WBC (Bld) 0.4 % 0-5 [facility] Neutrophils (Bld) [#/Vol] 5.4 10*3/uL 2.0-7.7 [facility] Neutrophils/100 WBC (Bld) 69.6 % 47-70 [facility] WBC (Bld) [#/Vol] 7.8 10*3/uL 4.4-11.0 [facility] Blood erythrocytes count (nu mber/volume)Ordered By: Irina Barth on 02-13-2023 RBC (Bld) [#/Vol] 3.85 10*6/uL 4.2-5.4 [facility] Blood hemoglobin measurement (mass/volume)Ordered By: Irina Barth on 02-13-2023 Hemoglobin (Bld) [Mass/Vol] 12.3 g/dL 12.0-15.0 [facility] Blood lymphocytes/100 leukoc ytesOrdered By: Irina Barth on 02-13-2023 Lymphocytes/100 WBC (Bld) 24.1 % 19-41 [facility] Blood monocytes/100 leukocyt esOrdered By: Irina Barth on 02-13-2023 Monocytes/100 WBC (Bld) 5.6 % 0-10 [facility] Blood platelet mean volumeOr dered By: Irina Barth on 02-13-2023 Platelet mean volume (Bld) [Entitic vol] 8.7 fL 6.2-12.0 [facility] Determination of erythrocyte mean corpuscular volume (MCV)Ordered By: Irina Barth on 02-13-2023 MCV (RBC) [Entitic vol] 91.7 fL 81-99 [facility] Gestational diabetes screen 1-hour screen with 50g oral glucose loadOrdered By: Irina Barth on 02-13-2023 Glucose 1 Hr post 50 g glucose PO [Mass/Vol] 116 mg/dL 70-140 [facility] Hematocrit Auto (Bld) [Volum e fraction]Ordered By: Irina Barth on 02-13-2023 Hematocrit (Bld) [Volume fraction] 35.3 % 37-47 [facility] Laboratory - Hematology and Cell countsOrdered By: Irina Barth on 02-13-2023 Erythrocyte distribution width (RBC) [Entitic vol] 43.3 fL 35.1-43.9 [facility] Erythrocyte distribution width (RBC) [Ratio] 13.1 % 11.6-14.6 [facility] Immature granulocytes/100 WBC (Bld) 0.300 % 0.0-0.9 [facility] Comment on above: IG% - Immature Granu locytes (promyelocytes, myelocytes and metamyelocytes) > 1% indicates that a LEFT SHIFT is Present. MCH (RBC) [Entitic mass] 31.9 pg 27.0-32.0 [facility] Nucleated RBC/100 WBC (Bld) [Ratio] 0 % 0-5 [facility] MCHC Auto (RBC) [Mass/Vol]Or dered By: Irina Barth on 02-13-2023 MCHC (RBC) [Mass/Vol] 34.8 g/dL 32-36 [facility] Platelets bldOrdered By: Aleta Barth on 02-13-2023 Platelets (Bld) [#/Vol] 217 10*3/uL 150-450 [facility] Absolute lymphocyte countOrd ered By: Irina Barth on 01-26-2023 Lymphocytes Auto (Unsp spec) [#/Vol] 1.87 10*3/uL 0.83-4.51 [facility] Basophil percentageOrdered B y: Irina Barth on 01-26-2023 Basophils/100 WBC (Bld) 0.2 % 0-1 [facility] Eosinophils/100 WBC (Bld) 0.1 % 0-5 [facility] Neutrophils (Bld) [#/Vol] 6.4 10*3/uL 2.0-7.7 [facility] Neutrophils/100 WBC (Bld) 72.6 % 47-70 [facility] WBC (Bld) [#/Vol] 8.8 10*3/uL 4.4-11.0 [facility] Blood erythrocytes count (nu mber/volume)Ordered By: Irina Barth on 01-26-2023 RBC (Bld) [#/Vol] 4.23 10*6/uL 4.2-5.4 [facility] Blood hemoglobin measurement (mass/volume)Ordered By: Irina Barth on 01-26-2023 Hemoglobin (Bld) [Mass/Vol] 13.1 g/dL 12.0-15.0 [facility] Blood lymphocytes/100 leukoc ytesOrdered By: Irina Barth on 01-26-2023 Lymphocytes/100 WBC (Bld) 21.3 % 19-41 [facility] Blood monocytes/100 leukocyt esOrdered By: Irina Barth on 01-26-2023 Monocytes/100 WBC (Bld) 5.5 % 0-10 [facility] Blood platelet mean volumeOr dered By: Irina Barth on 01-26-2023 Platelet mean volume (Bld) [Entitic vol] 9.3 fL 6.2-12.0 [facility] Determination of erythrocyte mean corpuscular volume (MCV)Ordered By: Irina Barth on 01-26-2023 MCV (RBC) [Entitic vol] 92.4 fL 81-99 [facility] HIV 1 and HIV-2 antibody ass ay with HIV-1 p24 antigen detectionOrdered By: Irina Barth on 01-26-2023 HIV 1+2 Ab+HIV1 p24 Ag IA Ql Non-Reactive Nonreactive [facility] Hematocrit Auto (Bld) [Volum e fraction]Ordered By: Irina Barth on 01-26-2023 Hematocrit (Bld) [Volume fraction] 39.1 % 37-47 [facility] Laboratory - Hematology and Cell countsOrdered By: Irina Barth on 01-26-2023 Erythrocyte distribution width (RBC) [Entitic vol] 42.3 fL 35.1-43.9 [facility] Erythrocyte distribution width (RBC) [Ratio] 12.6 % 11.6-14.6 [facility] Immature granulocytes/100 WBC (Bld) 0.300 % 0.0-0.9 [facility] Comment on above: IG% - Immature Granu locytes (promyelocytes, myelocytes and metamyelocytes) > 1% indicates that a LEFT SHIFT is Present. MCH (RBC) [Entitic mass] 31.0 pg 27.0-32.0 [facility] Nucleated RBC/100 WBC (Bld) [Ratio] 0 % 0-5 [facility] MCHC Auto (RBC) [Mass/Vol]Or dered By: Irina Barth on 01-26-2023 MCHC (RBC) [Mass/Vol] 33.5 g/dL 32-36 [facility] No Panel InformationOrdered By: Irina Barth on 01-26-2023 Hepatitis B Surface Antigen Non-Reactive Nonreactive [facility] Hepatitis C Antibody Non-Reactive Nonreactive [facility] Comment on above: Non Reactive: < 0.8 Equivocal: >/= 0.8 to < 1.0 Reactive: >/= 1.0The CDC recommends that a reactive/equivocal HCV antibody result be followed up by the HCV Nucleic Acid Amplificationtest (714015) Rubella IgG Antibody Reactive Nonreactive [facility] Comment on above: Antibody Results Int erpretation of Immune Status Non Reactive Presumed Non-Immune Equivocal Equivocal Reactive Presumed Immune Platelets bldOrdered By: Aleta Barth on 01-26-2023 Platelets (Bld) [#/Vol] 228 10*3/uL 150-450 [facility] Serum Treponema species anti body detectionOrdered By: Irina Barth on 01-26-2023 Treponema sp Ab Ql (S) Non-Reactive [facility] Cervical or vagninal specime n microscopic examination by cytology stain (reported asOrdered By: Irina Barth on 01-16-2023 Cytology report Cyto stain Doc (Cvx/Vag) Comment . [facility] Comment on above: The Pap smear is a s creening test designed to aid in thedetection of premalignant and malignant conditions of theuterine cervix. It is not a diagnostic procedure andshould not be used as the sole means of detecting cervicalcancer. Both false-positive and false-negative reports dooccur. Chlamydia trachomatis rRNA d etection by probe and target amplification methodOrdered By: Irina Barth on 01-16-2023 C. trachomatis rRNA GIOVANNA+probe Ql (Unsp spec) Negative Negative [facility] Culture, urineOrdered By: Alma Rosa Barth on 01-16-2023 Bacteria identified Cx Nom (U) Culture exhibits no growth. [facility] Bacteria identified Cx Nom (U) Culture exhibits no growth. [facility] Laboratory - CytologyOrdered By: Irina Barth on 01-16-2023 Farm Equipment Service Technician Cyto stain Nom (Cvx/Vag) [ID] Comment . [facility] Comment on above: Lev Shay totандрейologist (ASCP) Laboratory - Microbiology an d Antimicrobial susceptibilityOrdered By: Irina Barth on 01-16-2023 N. gonorrhoeae DNA GIOVANNA+probe Ql (Unsp spec) Negative Negative [facility] Comment on above: Performed at: [address] [id number] Director: Domonique Parish MD, Phone: [phone] Laboratory - Miscellaneous t estsOrdered By: Irina Barth on 01-16-2023 Service comment (Unsp spec) [Interp] Comment . [facility] Comment on above: This liquid based Th inPrep(R) pap test was screened withthe use of an image guided system. Service comment (Unsp spec) [Interp] . . [facility] No Panel InformationOrdered By: Irina Barth on 01-16-2023 Human Papillomavirus Screen Comment . [facility] Comment on above: The HPV DNA reflex c shane were not met with this specimenresult therefore, no HPV testing was performed.Performed at: [facility] [id number] [place], [place] [id number] Director: Onur Valverde MD, Phone: [phone] at: [facility] - [facility] [address] [place] [id number] Director: Domonique Parish MD, Phone: [phone] Pathology report final diagnosis Narrative Comment . [facility] Comment on above: NEGATIVE FOR INTRAEP ITHELIAL LESION OR MALIGNANCY.CELLULAR CHANGES ASSOCIATED WITH INFLAMMATION ARE PRESENT. Serum or plasma choriogonado tropin detectionOrdered By: Breanna Merritt on 12-26-2022 HCG ( test) [place]l [address] mIU/mL <4 [facility] Comment on above: hCG levels with Gest ational AgeGestational Age hCG mIU/mL (IU/L)0.2 - 1 week 5 - 501-2 weeks 50 - 5002-3 weeks 100 - 73750-9 weeks 500 - 328366-2 weeks 1000 - 988139-0 weeks 04664 - 100,0006-8 weeks 05468 - 200,0002-3 months 37248 - 100,000 EMERGENCY REPORTon 9 EMERGENCY [address] [facility] EMERGENCY ROOM REPORT NAME ACCOUNT SEX AGE ADMIT DISCHARGE PT MED. RECORD# NUMBER DATE DATE TYPE FARIDEH, [id number] F 23 08/19/18 2 RAY [id number] ROOM: 312 DATE OF : 1995 DICTATING PHYSICIAN: Darnell Hart HISTORY OF PRESENT ILLNESS: The patient is a 23-year-old otherwise healthy woman who presents after the of her 8 pound 14 ounce son with a concern of hemorrhage. Per reports of the patient's terrazzo mechanic helper, at home during a home , the patient had blood loss of 1600 mL of fluid. Per terrazzo mechanic helper report, the patient's placenta and umbilical cord were intact at the time of delivery. Uterine massage was initiated by terrazzo mechanic helper and the patient arrived via EMS. EMS initiated normal saline through IV to support the patient's blood pressure. The patient with no acute complaints at this time with persistent oozing from vaginal canal noted at the time of initial arrival. PAST MEDICAL HISTORY: None. PAST SURGICAL HISTORY: None. SOCIAL HISTORY: Denies x3. REVIEW OF SYSTEMS: Ten systems reviewed and negative with the exception of those mentioned in the HPI. PHYSICAL EXAMINATION: The patient's initial blood pressure is 87/54, pulse 135, O2 saturation 96%, respiratory rate 18, temperature 98.6. The patient was slightly pale in appearance on evaluation of skin. HEENT: The patient's pupils are equal, round, and reactive to light and accommodation with normal extraocular movements. Head is normocephalic and atraumatic. The patient with no cervical lymphadenopathy. The patient's oropharynx clear with no evidence of erythema or edema. The patient's lungs are clear to auscultation bilaterally. The patient's heart with a regular rate and rhythm. No murmurs, rubs, or gallops. The patient's abdomen appeared somewhat gravid with reducing fundal height noted. The patient's abdomen was not rigid, soft with mild tenderness to palpation of the uterus. The patient's examination revealed blood clots in the vaginal vault with large blood clots expelled after removal of midwives hand from the patient's vaginal canal. The patient is alert, responding to all questions appropriately with no acute complaints at this time. DIAGNOSTIC DATA: Laboratory studies: The patient's CBC revealed a white blood cell count of 29,000, hemoglobin 10.6, hematocrit 31, platelets of 284,000. PT 11.6, PTT 23.1. INR 1.0. Sodium 134 on CMP, potassium 3.4, chloride 104, CO2 17.2, BUN 13, creatinine 0.8. Calcium 8.6. GFR greater than 60. Glucose 207. AST 14, ALT 7, alkaline Page 1 of 3 [facility] Emergency Room Report phosphatase 454, total protein 5.4, albumin 3.0. Anion gap is 16. Type and screen with A positive blood type with antibiotic negative. Ultrasound OB pelvis revealed uterus enlarged compatible with recent status, endometrium thickened, focal area of endometrial hyperemia suspicious for retained products of conception, lack of soft tissue gas. No adnexal mass. No free fluid appreciated. MEDICAL DECISION MAKING/EMERGENCY DEPARTMENT COURSE AND TREATMENT: This is a 23-year-old female patient who presented with concern for hemorrhage. The patient with diagnosis of hemorrhage given greater than 500 mL of blood loss and with 1600 immediately after delivery noted and additional estimated blood loss of at least another 500 mL noted in our ED. The patient was initially hemodynamically unstable with heart rate in the 130s and blood pressure 87/54. The patient initially given 2 liter bolus, as well as Pitocin started. This decreased blood flow from vaginal canal. Additional TXA infusion was initiated as well, which helped it slow the bleeding even further. While the patient's heart rate would decrease to the 100s to 110s and blood pressure would raise systolic greater than 100, as high as 110 with patient maintaining appropriate mentation, decision was made to given TXA as well to assist. Once the patient was more hemodynamically stable, ultrasound obtained per the direction of mold capper credit administration manager to give direction to obtain ultrasound to evaluate for retained products of conception as potential cause of the patient's persistent bleeding. After stabilization and slowed bleeding however persisted, I informed the mold capper of these findings who stated he would come in to perform D&C to remove the products of conception which were likely causing the persistent bleeding. PLAN/DISPOSITION: The patient informed of the results and plan of care. During resuscitation, the patient was given 1 unit of O negative blood, 2 liters of normal saline, TXA, oxytocin, as well as maintenance rate of fluids at 100 mL an hour. A total of 60 minutes critical care time provided. The patient admitted to the hospital under OB service as patient to undergo D&C immediately following ED and then OB admission. The patient admitted in serious condition. Dictated By: Darnell Hart MD 08/19/18 05:54 JOB #: [id number] Transcribed By: am 08/19/18 17:44 Electronically signed by: E-SIGN: Darnell Hart M.D. 08/26/18 20:12 Page 2 of 3 [facility] Emergency Room Report Normal [facility] APTTon 08-19-2018 aPTT Coag time (Bld) 23.1 s Low 25.4 - 38.4 [facility] Comment on above: Performed By: #### 2 52675 #### [facility],[address] [place] [address] 59273 BB CROSSMATCH 1ST UNITon BB CROSSMATCH 1ST UNIT Normal [facility] Comment on above: Result Comment: [id number] REQUEST FOR BLOOD OR BLOOD COMPONENT UNIT #_1 08/19/18.0641.BKO. Performed By: #### 2 39618 #### [facility],[address] [place] [address] 95032 Compatibility COMPATIBLE Normal [facility] Comment on above: Result Comment: { Pt 's BB ID # [id number] Transfusion comments I have confirmed the above required items at the time of unit issue: Issuing Tech ........................ Date/Time .................. ====== PT ID VERIFIED AT BEDSIDE PRIOR TO BLOOD ADMINISTRATION PT ID VERIFIED AND DOCUMENTED BY TWO NURSES PT Name same on unit tag,BB ID Bracelet, and blood administration form Verify PT name by asking to state name(if poss.) Pt's MR Number on unit tag is the same as BB ID Bracelet and admin form Verify Pt's ABO Group/Rh from admin form, and unit tag Verify unit number from unit and blood administration form Informed consent obtained? I have checked the above listed items and there were no discrepancies #1 RN signature .................... Date/Time .................. #2 RN signature .................... Date/Time .................. ====== RECORD OF PATIENT'S RESPONSE Date/Time Prior to transfusion ......... Start of transfusion ......... 15 minute check ......... Blood complete/DC ......... SITE: Central Vein Peripheral Vein Central Artery Peripheral Artery AMOUNT GIVEN (1/4, 1/2, 3/4 or full unit) WAS THERE A REACTION TO THE TRANSFUSION? Yes... No... If so, notify the physician and the lab immediately, and initiate a Blood Transfusion Reaction form. COMPLETE FORMS ENTIRELY. KEEP CARDBOARD COPY ATTACHED TO UNIT. PLACE WHITE COPY ON CHART. RETURN YELLOW COPY TO LAB HOLGER UPON COMPLETION OF TRANSFUSION. Performed By: #### 2 58837 #### [facility],[address] [place] [address] Component LRPC Normal [facility] Comment on above: Performed By: #### 2 00960 #### [facility],[address] [place] [address] Donor's ABO/Rh Positive [facility] Comment on above: Performed By: #### 2 79934 #### [facility],[address] [place] [address] Donor's Unit No [id number] [facility] Comment on above: Performed By: #### 2 14149 #### [facility],[address] [place] [address] Pt's ABO/Rh Positive [facility] Comment on above: Performed By: #### 2 56383 #### [facility],[address] [place] [address] Unit Exp Date 09-04-18 [facility] Comment on above: Performed By: #### 2 38543 #### [facility],[address] [place] [address] BB CROSSMATCH 1ST UNIT Normal [facility] Comment on above: Result Comment: [id number] REQUEST FOR BLOOD OR BLOOD COMPONENT UNIT #_1 08/19/18.0619.DJB. Performed By: #### 2 96101 #### [facility],[address] [place] [address] Compatibility COMPATIBLE Normal [facility] Comment on above: Result Comment: { Pt 's BB ID # [id number] Transfusion comments I have confirmed the above required items at the time of unit issue: Issuing Tech ........................ Date/Time .................. ====== PT ID VERIFIED AT BEDSIDE PRIOR TO BLOOD ADMINISTRATION PT ID VERIFIED AND DOCUMENTED BY TWO NURSES PT Name same on unit tag,BB ID Bracelet, and blood administration form Verify PT name by asking to state name(if poss.) Pt's MR Number on unit tag is the same as BB ID Bracelet and admin form Verify Pt's ABO Group/Rh from admin form, and unit tag Verify unit number from unit and blood administration form Informed consent obtained? I have checked the above listed items and there were no discrepancies #1 RN signature .................... Date/Time .................. #2 RN signature .................... Date/Time .................. ====== RECORD OF PATIENT'S RESPONSE Date/Time Prior to transfusion ......... Start of transfusion ......... 15 minute check ......... Blood complete/DC ......... SITE: Central Vein Peripheral Vein Central Artery Peripheral Artery AMOUNT GIVEN (1/4, 1/2, 3/4 or full unit) WAS THERE A REACTION TO THE TRANSFUSION? Yes... No... If so, notify the physician and the lab immediately, and initiate a Blood Transfusion Reaction form. COMPLETE FORMS ENTIRELY. KEEP CARDBOARD COPY ATTACHED TO UNIT. PLACE WHITE COPY ON CHART. RETURN YELLOW COPY TO LAB HOLGER UPON COMPLETION OF TRANSFUSION. Performed By: #### 2 67255 #### [place] [address] Component LRPC Normal [facility] Comment on above: Performed By: #### 2 51018 #### [place] [address] Donor's ABO/Rh Negative Normal [facility] Comment on above: Performed By: #### 2 64385 #### [facility],[address] [place] [address] Donor's Unit No [id number] [facility] Comment on above: Performed By: #### 2 12741 #### [facility],[address] [place] [address] Pt's ABO/Rh Positive [facility] Comment on above: Performed By: #### 2 58865 #### [facility],[address] [place], [place] [id number] Unit Exp Date 09/06/18 [facility] Comment on above: Performed By: #### 2 35089 #### [facility],[address] [place] [address] BB CROSSMATCH ADDITIONAL UNI Ton 08-19-2018 BB CROSSMATCH ADDITIONAL UNIT [facility] Comment on above: Result Comment: [id number] REQUEST FOR BLOOD OR BLOOD COMPONENT UNIT #_2 08/19/18.0658.BKO. Performed By: #### 2 51313 #### [facility],[address] [place], [place] [id number] Compatibility COMPATIBLE [facility] Comment on above: Result Comment: { Pt 's BB ID # [id number] Transfusion comments I have confirmed the above required items at the time of unit issue: Issuing Tech ........................ Date/Time .................. ====== PT ID VERIFIED AT BEDSIDE PRIOR TO BLOOD ADMINISTRATION PT ID VERIFIED AND DOCUMENTED BY TWO NURSES PT Name same on unit tag,BB ID Bracelet, and blood administration form Verify PT name by asking to state name(if poss.) Pt's MR Number on unit tag is the same as BB ID Bracelet and admin form Verify Pt's ABO Group/Rh from admin form, and unit tag Verify unit number from unit and blood administration form Informed consent obtained? I have checked the above listed items and there were no discrepancies #1 RN signature .................... Date/Time .................. #2 RN signature .................... Date/Time .................. ====== RECORD OF PATIENT'S RESPONSE Date/Time Prior to transfusion ......... Start of transfusion ......... 15 minute check ......... Blood complete/DC ......... SITE: Central Vein Peripheral Vein Central Artery Peripheral Artery AMOUNT GIVEN (1/4, 1/2, 3/4 or full unit) WAS THERE A REACTION TO THE TRANSFUSION? Yes... No... If so, notify the physician and the lab immediately, and initiate a Blood Transfusion Reaction form. COMPLETE FORMS ENTIRELY. KEEP CARDBOARD COPY ATTACHED TO UNIT. PLACE WHITE COPY ON CHART. RETURN YELLOW COPY TO LAB HOLGER UPON COMPLETION OF TRANSFUSION. Performed By: #### 2 61017 #### [facility],[address] [place] [address] 24325 Component LRPC Normal [facility] Comment on above: Performed By: #### 2 98760 #### [facility],[address] [place] [address] 15721 Donor's ABO/Rh Positive Normal [facility] Comment on above: Performed By: #### 2 78833 #### [facility],[address] [place], [place] [id number] Donor's Unit No [id number] Normal [facility] Comment on above: Performed By: #### 2 47774 #### [facility],[address] [place], [place] [id number] Pt's ABO/Rh Positive [facility] Comment on above: Performed By: #### 2 78042 #### [facility],[address] [place] [address] Unit Exp Date 09-04-18 [facility] Comment on above: Performed By: #### 2 44000 #### [facility],[address] [place] [address] BB TYPE & SCREENon 9 ABO A Normal [facility] Comment on above: Performed By: #### 2 61228 #### [facility],[address] [place], [place] [phone] ANTIBODY SCR Negative Normal [facility] Comment on above: Performed By: #### 2 98700 #### [facility],[address] [place] [address] 43575 BB TYPE & SCREEN Normal [facility] Comment on above: Result Comment: TYPE , Rh, AND SCREEN Performed By: #### 2 65610 #### [facility],[address] [place] [address] 08587 Rh Nom (Bld) Positive Normal [facility] Comment on above: Performed By: #### 2 42903 #### [facility],[address] [place] [address] 07835 CBCon 08-19-2018 Basophils #/vol (Bld) 0.00 x10EE3/UL Normal 0.00 - 0.1 0 [facility] Comment on above: Performed By: #### 2 06060 #### [facility],[address] [place] [address] 90177 Basophils/100 WBC (Bld) 0.2 % Normal 0.0 - 2.0 [facility] Comment on above: Performed By: #### 2 13458 #### [facility],[address] [place] [address] CBC Normal [facility] Comment on above: Result Comment: CBC- COMPLETE BLOOD COUNT Performed By: #### 2 64697 #### [facility],[address] [place] [address] Eosinophils #/vol (Bld) 0.00 x10EE3/UL Normal 0.00 - 0 .50 [facility] Comment on above: Performed By: #### 2 78705 #### [facility],[address] [place] [address] 69457 Eosinophils/100 WBC (Bld) 0.0 % Normal 0.0 - 7.0 [facility] Comment on above: Performed By: #### 2 33481 #### [facility],[address] [place], [place] [phone] Erythrocyte distribution width Ratio (RBC) 14.2 % Normal 12.0 - 15.6 [facility] Comment on above: Performed By: #### 2 79662 #### [facility],[address] [place] [address] Hematocrit Volume Fraction (Bld) 31.0 % Low 34.0 - 46.0 [facility] Comment on above: Performed By: #### 2 45370 #### [facility],[address] [place], [place] [phone] Hemoglobin mass conc (Bld) 10.6 g/dL Low 12.0 - 16.0 [facility] Comment on above: Performed By: #### 2 41822 #### [facility],[address] [place] [address] Lymphocytes #/vol (Bld) 1.50 x10EE3/UL Normal 0.80 - 2 .80 [facility] Comment on above: Performed By: #### 2 89491 #### [facility],[address] [place] [address] Lymphocytes/100 WBC (Bld) 5.0 % Low 20.0 - 45.0 [facility] Comment on above: Performed By: #### 2 75130 #### [facility],[address] [place] [address] MANUAL DIFF N/A Normal [facility] Comment on above: Performed By: #### 2 08169 #### [facility],[address] [place] [address] MCH Entitic mass (RBC) 32 pg Normal 27 - [address] [facility] Comment on above: Performed By: #### 2 71670 #### [place] [address] MCHC mass conc (RBC) 34 X10 3 Normal 32 - 36 [facility] Comment on above: Performed By: #### 2 24149 #### [facility],[address] [place] [address] MCV Entitic volume (RBC) 93 fL Normal 80 - 99 [facility] Comment on above: Performed By: #### 2 24108 #### [facility],[address] [place] [address] Monocytes #/vol (Bld) 0.90 x10EE3/UL Normal 0.20 - 1.0 0 [facility] Comment on above: Performed By: #### 2 33324 #### [facility],[address] [place] [address] MONOS % 2.9 % Normal 0.0 - 10.0 [facility] Comment on above: Performed By: #### 2 69828 #### [facility],[address] [place] [address] 40284 Morphology Interp John (Bld) N/A Normal [facility] Comment on above: Performed By: #### 2 02032 #### [facility],[address] [place] [address] 41607 Neutrophils #/vol (Bld) 26.90 x10EE3/UL High 1.50 - 7.10 [facility] Comment on above: Performed By: #### 2 55781 #### [place] [id number] Neutrophils/100 WBC (Bld) 91.9 % High 46.0 - 76.0 [facility] Comment on above: Performed By: #### 2 11598 #### [facility],[address] [place] [address] Platelet mean volume Entitic volume (Bld) 8.6 fL Normal 6.6 - 10.5 [facility] Comment on above: Result Comment: AUTO MATED DIFFERENTIAL Performed By: #### 2 26222 #### [address] [address] Platelets #/vol (Bld) 284 x10EE3/UL Normal 150 - 450 [facility] Comment on above: Performed By: #### 2 54073 #### [address] [address] RBC #/vol (Bld) 3.33 x 10EE6/UL Low 4.10 - 5.30 [facility] Comment on above: Performed By: #### 2 00203 #### [facility],[address] [place] [address] 85598 WBC #/vol (Bld) 29.3 x 10EE3/UL High 4.5 - 10.8 [facility] Comment on above: Performed By: #### 2 69035 #### [facility],[address] [place] [address] 49831 CMP with eGFRon 08-19-2018 Age Reported 23 years Normal [facility] Comment on above: Performed By: #### 2 03619 #### [facility],[address] [place] [address] 04555 Albumin mass conc 3.0 g/dL Low 3.4 - 4.8 [facility] Comment on above: Performed By: #### 2 60000 #### [facility],[address] [place] [address] 83177 Albumin/Globulin mass ratio 1.3 {ratio} Normal 0.9 - 1.6 [facility] Comment on above: Performed By: #### 2 74295 #### [facility],[address] [place] [address] 21175 ALK PHOS 154 U/L High 38 - 126 [facility] Comment on above: Performed By: #### 2 73953 #### [facility],[address] [place] [address] 23026 ALT/SGPT 7 U/L Low 8 - 35 [facility] Comment on above: Performed By: #### 2 98394 #### [facility],[address] [place] [address] 17723 Anion gap molar conc 16 mmol/L Normal 10 - 20 [facility] Comment on above: Performed By: #### 2 99412 #### [facility],[address] [place] [address] 02066 AST/SGOT 14 U/L Normal 13 - 39 [facility] Comment on above: Performed By: #### 2 42375 #### [facility],[address] [place] [address] 74588 B/C RATIO 16 ratio Normal 0 - 30 [facility] Comment on above: Performed By: #### 2 46581 #### [facility],[address] [place] [address] 27452 Bilirubin mass conc 0.4 mg/dL Normal 0.0 - 1.5 [facility] Comment on above: Performed By: #### 2 69333 #### [facility],[address] [place] [address] 79358 Calcium mass conc 8.6 mg/dL Normal 8.6 - 10.2 [facility] Comment on above: Performed By: #### 2 03437 #### [facility],[address] [place] [address] 48204 Chloride molar conc 104 mmol/L Normal 98 - 107 [facility] Comment on above: Performed By: #### 2 46838 #### [facility],[address] [place] [address] 13967 CO2 molar conc 17.2 mmol/L Low 21.0 - 31.0 [facility] Comment on above: Performed By: #### 2 36165 #### [facility],[address] [place] [address] 52794 Creatinine mass conc 0.8 mg/dL Normal 0.6 - 1.2 [facility] Comment on above: Performed By: #### 2 67934 #### [facility],[address] [place] [address] 08123 GFR/1.73 sq M predicted among non-blacks MDRD vol rate/area (S/P/Bld) mL/min/{1.73_m2} Normal 60 - 999 [facility] Comment on above: Result Comment: ACCO RDING TO THE NATIONAL KIDNEY DISEASE EDUCATION PROGRAM(NKDE), A NORMAL eGFR IS A VALUE GREATER THAN OR EQUAL TO 60 ML/MIN/1.73 SQ METERS. CHRONIC KIDNEY DISEASE: <60mL/MIN/1.73 SQ METERS KIDNEY FAILURE: <15mL/MIN/1.73 SQ METERS THIS TEST SHOULD ONLY BE USED FOR PATIENTS 18 YEARS OF AGE AND OLDER. Performed By: #### 2 09516 #### [facility],[address] [place] [address] 75971 GFR/1.73 sq M predicted among non-blacks MDRD vol rate/area (S/P/Bld) Normal [facility] Comment on above: Result Comment: COMP REHENSIVE METABOLIC PANEL Performed By: #### 2 05122 #### [facility],[address] [place] [address] 68395 Globulin mass conc (S) 2.4 g/dL Normal 1.5 - 3.[address] [facility] Comment on above: Performed By: #### 2 91233 #### [facility],[address] [place] [address] 51565 Glucose mass conc 207 mg/dL High 74 - 106 [facility] Comment on above: Performed By: #### 2 19239 #### [facility],[address] [place] [address] 04447 Potassium molar conc 3.4 mmol/L Low 3.5 - 5.1 [facility] Comment on above: Performed By: #### 2 32597 #### [facility],[address] [place] [address] 88949 Protein mass conc 5.4 g/dL Low 6.4 - 8.3 [facility] Comment on above: Performed By: #### 2 59557 #### [facility],[address] [place] [address] 01769 Sodium molar conc 134 mmol/L Low 136 - 145 [facility] Comment on above: Performed By: #### 2 57432 #### [facility],[address] [place] [address] 68893 Urea nitrogen mass conc 13 mg/dL Normal 6 - 20 [facility] Comment on above: Performed By: #### 2 38927 #### [facility],[address] [place] [address] 19891 PROTHROMBIN TIME AND INRon 0 08-19-2018 INR Coag RelTime (Bld) Normal [facility] Comment on above: Result Comment: PROT HROMBIN TIME AND INR Performed By: #### 2 26244 #### [facility],[address] [place] [address] INR Coag RelTime (PPP) 1.0 {INR} Normal 0.8 - 1.[address] [facility] Comment on above: Result Comment: T HE HEMOSIL THROMBOPLASTIN REAGENT USED IN THE PROTHROMBIN TIME TEST INTERACTS WITH THE DRUG CUBICIN (DAPTOMYCIN) AND WILL RESULT IN FALSELY ELEVATED PT / INR RESULTS INR INTERPRETATION INR INDICATION PREVENTION AND TREATMENT OF THROMBOEMBOLISM ASSOCIATED WITH: 2.0 - 3.0 ATRIAL FIBRILLATION, BIOPROSTHETIC HEART VALVES, PULMONARY EMBOLISM, VENOUS THROMBOSIS, SYSTEMIC EMBOLISM POST MYOCARDIAL INFARCTION 2.5 - 3.5 MECHANICAL HEART VALVES Performed By: #### 2 96947 #### [facility],[address] [place] [address] PT-COUMADIN 11.6 sec Normal 9.3 - 14.1 [facility] Comment on above: Performed By: #### 2 75837 #### [facility],[address] [place] [address] [place] PELVICon 08-19-2018 [place] [address] Patient: RAY GONG Phone#: : [phone] Age: 23 Gender: F Pt. Type: ER Account: [id number] Location: [facility] Ordering: DARNELL HART Exam Date: 08/19/2018/1:54 Family Phys: NO DOCTOR Charge Code: 597349 Physician: Kemper Order #: [id number] DLP Dose#: PROCEDURE: PELVIC ULTRASOUND, TRANSABDOMINAL COMPARISON: None. INDICATIONS: Vaginal bleeding TECHNIQUE: Pelvic ultrasound was performed in the usual manner. FINDINGS: UTERUS: The uterus is enlarged consistent with status. The endometrium is 8.9 mm in thickness There is a focus of endometrial hyperemia at the lower uterine segment suspicious for retained products of conception. ADNEXAE: Normal bilateral appearance with no significant masses. Each ovary is normal in size for a patient of this age. CUL-DE-SAC: Normal. No fluid or mass. OTHER: Negative. CONCLUSION: 1. Focus of endometrial hyperemia in the lower uterine segment suspicious for retained products of conception. Dictated by: Erma Venegas MD on 08/19/2018 at 8:27 Approved by: Erma Venegas MD on 08/19/2018 at 8:27 Normal [facility] Vital Signs Date Time Vital Sign Value Performing Clinician Shameka mir 12-16-2024 11:53-0400 Body height 162.56 cm No Primary Care Physician [facility] 12-16-2024 11:53-0400 Body mass index (BMI) [Ratio] 22.1 kg/m2 No Primary Care Physician [facility] 12-16-2024 11:53-0400 Body weight 58.57 kg No Primary Care Physician [facility] 12-16-2024 11:53-0400 Diastolic blood pressure 80 mm[Hg] No Primary Care Physician [facility] 12-16-2024 11:53-0400 Systolic blood pressure 119 mm[Hg] No Primary Care Physician [facility] 08-19-2023 07:58-0400 Body temperature 97.3 [degF] No Primary Care Physician [facility] 08-19-2023 07:58-0400 Diastolic blood pressure 64 mm[Hg] No Primary Care Physician [facility] 08-19-2023 07:58-0400 Heart rate 63 /min No Primary Care Physician [facility] 08-19-2023 07:58-0400 Respiratory rate 18 /min No Primary Care Physician [facility] 08-19-2023 07:58-0400 SaO2% (BldA) [Mass fraction] 99 % No Primary Care Physician [facility] 08-19-2023 07:58-0400 Systolic blood pressure 96 mm[Hg] No Primary Care Physician [facility] 08-17-2023 20:05-0400 Body height 162.56 cm No Primary Care Physician [facility] 08-17-2023 20:05-0400 Body mass index (BMI) [Ratio] 25.7 kg/m2 No Primary Care Physician [facility] 08-17-2023 20:05-0400 Body weight 68.03 kg No Primary Care Physician [facility] 08-12-2023 14:16-0500 Body mass index (BMI) [Ratio] 25.8 kg/m2 No Primary Care Physician [facility] 08-12-2023 14:16-0500 Body weight 68.2 kg No Primary Care Physician [facility] 08-12-2023 14:16-0500 Diastolic blood pressure 78 mm[Hg] No Primary Care Physician [facility] 08-12-2023 14:16-0500 Systolic blood pressure 129 mm[Hg] No Primary Care Physician [facility] 08-09-2023 10:27-0500 Body height 162.56 cm No Primary Care Physician [facility] 08-09-2023 10:27-0500 Body mass index (BMI) [Ratio] 25.7 kg/m2 No Primary Care Physician [facility] 08-09-2023 10:27-0500 Body weight 67.85 kg No Primary Care Physician [facility] 08-09-2023 10:10-0500 Body temperature 98.6 [degF] No Primary Care Physician [facility] 08-09-2023 10:10-0500 SaO2% (BldA) [Mass fraction] 99 % No Primary Care Physician [facility] 08-09-2023 10:08-0500 Heart rate 89 /min No Primary Care Physician [facility] 08-09-2023 09:57-0500 Diastolic blood pressure 73 mm[Hg] No Primary Care Physician [facility] 08-09-2023 09:57-0500 Systolic blood pressure 117 mm[Hg] No Primary Care Physician [facility] 08-05-2023 16:45-0500 Diastolic blood pressure 77 mm[Hg] No Primary Care Physician [facility] 08-05-2023 16:45-0500 Heart rate 74 /min No Primary Care Physician [facility] 08-05-2023 16:45-0500 Systolic blood pressure 120 mm[Hg] No Primary Care Physician [facility] 08-05-2023 16:00-0500 Body height 162.56 cm No Primary Care Physician [facility] 08-05-2023 16:00-0500 Body mass index (BMI) [Ratio] 25.8 kg/m2 No Primary Care Physician [facility] 08-05-2023 16:00-0500 Body weight 68.26 kg No Primary Care Physician [facility] 08-05-2023 15:50-0500 Body temperature 97.8 [degF] No Primary Care Physician [facility] 08-05-2023 14:18-0500 Body mass index (BMI) [Ratio] 25.6 kg/m2 No Primary Care Physician [facility] 08-05-2023 14:18-0500 Body weight 67.64 kg No Primary Care Physician [facility] 08-05-2023 14:18-0500 Diastolic blood pressure 67 mm[Hg] No Primary Care Physician [facility] 08-05-2023 14:18-0500 Systolic blood pressure 119 mm[Hg] No Primary Care Physician [facility] 07-30-2023 13:25-0500 Body mass index (BMI) [Ratio] 25.4 kg/m2 No Primary Care Physician [facility] 07-30-2023 13:25-0500 Body weight 67.13 kg No Primary Care Physician [facility] 07-30-2023 13:25-0500 Diastolic blood pressure 63 mm[Hg] No Primary Care Physician [facility] 07-30-2023 13:25-0500 Systolic blood pressure 106 mm[Hg] No Primary Care Physician [facility] 07-21-2023 08:35-0500 Body height 162.56 cm No Primary Care Physician [facility] 07-21-2023 08:35-0500 Body mass index (BMI) [Ratio] 25.4 kg/m2 No Primary Care Physician [facility] 07-21-2023 08:35-0500 Body weight 67.13 kg No Primary Care Physician [facility] 07-21-2023 08:35-0500 Diastolic blood pressure 66 mm[Hg] No Primary Care Physician [facility] 07-21-2023 08:35-0500 Systolic blood pressure 110 mm[Hg] No Primary Care Physician [facility] 07-01-2023 13:49-0500 Body mass index (BMI) [Ratio] 24.9 kg/m2 No Primary Care Physician [facility] 07-01-2023 13:49-0500 Body weight 65.88 kg No Primary Care Physician [facility] 07-01-2023 13:49-0500 Diastolic blood pressure 68 mm[Hg] No Primary Care Physician [facility] 07-01-2023 13:49-0500 Systolic blood pressure 103 mm[Hg] No Primary Care Physician [facility] 06-19-2023 14:08-0500 Body mass index (BMI) [Ratio] 24.7 kg/m2 No Primary Care Physician [facility] 06-19-2023 14:08-0500 Body weight 65.31 kg No Primary Care Physician [facility] 06-19-2023 14:08-0500 Diastolic blood pressure 61 mm[Hg] No Primary Care Physician [facility] 06-19-2023 14:08-0500 Systolic blood pressure 91 mm[Hg] No Primary Care Physician [facility] 06-05-2023 14:57-0500 Body mass index (BMI) [Ratio] 24.9 kg/m2 No Primary Care Physician [facility] 06-05-2023 14:57-0500 Body weight 65.94 kg No Primary Care Physician [facility] 06-05-2023 14:57-0500 Diastolic blood pressure 62 mm[Hg] No Primary Care Physician [facility] 06-05-2023 14:57-0500 Systolic blood pressure 94 mm[Hg] No Primary Care Physician [facility] 05-22-2023 13:51-0500 Body height 162.56 cm No Primary Care Physician [facility] 05-22-2023 13:50-0500 Body mass index (BMI) [Ratio] 24.3 kg/m2 No Primary Care Physician [facility] 05-22-2023 13:50-0500 Body weight 64.18 kg No Primary Care Physician [facility] 05-22-2023 13:50-0500 Diastolic blood pressure 61 mm[Hg] No Primary Care Physician [facility] 05-22-2023 13:50-0500 Systolic blood pressure 95 mm[Hg] No Primary Care Physician [facility] 05-08-2023 14:01-0500 Body height 162.56 cm No Primary Care Physician [facility] 05-08-2023 14:01-0500 Body mass index (BMI) [Ratio] 24.1 kg/m2 No Primary Care Physician [facility] 05-08-2023 14:01-0500 Body weight 63.72 kg No Primary Care Physician [facility] 05-08-2023 14:01-0500 Diastolic blood pressure 64 mm[Hg] No Primary Care Physician [facility] 05-08-2023 14:01-0500 Systolic blood pressure 112 mm[Hg] No Primary Care Physician [facility] 04-10-2023 13:14-0400 Body height 162.56 cm No Primary Care Physician [facility] 04-10-2023 13:14-0400 Body mass index (BMI) [Ratio] 23.5 kg/m2 No Primary Care Physician [facility] 04-10-2023 13:14-0400 Body weight 62.14 kg No Primary Care Physician [facility] 04-10-2023 13:14-0400 Diastolic blood pressure 70 mm[Hg] No Primary Care Physician [facility] 04-10-2023 13:14-0400 Systolic blood pressure 104 mm[Hg] No Primary Care Physician [facility] 03-13-2023 14:38-0400 Body mass index (BMI) [Ratio] 22.7 kg/m2 No Primary Care Physician [facility] 03-13-2023 14:38-0400 Body weight 60.04 kg No Primary Care Physician [facility] 03-13-2023 14:38-0400 Diastolic blood pressure 74 mm[Hg] No Primary Care Physician [facility] 03-13-2023 14:38-0400 Systolic blood pressure 110 mm[Hg] No Primary Care Physician [facility] 02-13-2023 10:48-0400 Body height 162.56 cm No Primary Care Physician [facility] 02-13-2023 10:48-0400 Body mass index (BMI) [Ratio] 22.3 kg/m2 No Primary Care Physician [facility] 02-13-2023 10:48-0400 Body weight 59.08 kg No Primary Care Physician [facility] 02-13-2023 10:48-0400 Diastolic blood pressure 72 mm[Hg] No Primary Care Physician [facility] 02-13-2023 10:48-0400 Systolic blood pressure 116 mm[Hg] No Primary Care Physician [facility] 01-16-2023 15:42-0400 Body height 162.56 cm No Primary Care Physician [facility] 01-16-2023 15:41-0400 Body mass index (BMI) [Ratio] 21.8 kg/m2 No Primary Care Physician [facility] 01-16-2023 15:41-0400 Body weight 57.6 kg No Primary Care Physician [facility] 01-16-2023 15:41-0400 Diastolic blood pressure 62 mm[Hg] No Primary Care Physician [facility] 01-16-2023 15:41-0400 Systolic blood pressure 110 mm[Hg] No Primary Care Physician [facility] Encounters Encounter Date Encounter Type Care Provider Facility Start: 01-09-2025 End: 01-09-2025 ambulatory No Primary Care Physician Facility:[facility] Start: 12-16-2024 End: 12-16-2024 Patient encounter procedure Dayana Felipe CNM -[facility] Work Phone: Start: 12-16-2024 End: 12-16-2024 ambulatory No Primary Care Physician [facility] Start: 07-11-2024 End: 07-11-2024 ambulatory No Primary Care Physician Facility:[facility] Start: 07-05-2024 End: 07-05-2024 ambulatory No Primary Care Physician Facility:[facility] Start: 08-19-2023 Non-patient / Non-visit No Brenda hernandez Care Physician [facility] Start: 08-18-2023 Non-patient / Non-visit No Brenda david Care Physician [facility] Start: 08-17-2023 Non-patient / Non-visit No Brenda hernandez Care Physician [facility] Start: 08-17-2023 End: 08-19-2023 Evaluation and management of inpatient No Primary Care Physician [facility] Work Phone: Start: 08-12-2023 End: 08-12-2023 Patient encounter procedure No Primary Care Physician [facility] Work Phone: Start: 08-10-2023 Non-patient / Non-visit No Brenda hernandez Care Physician [facility] Start: 08-09-2023 End: 08-09-2023 ambulatory No Primary Care Physician [facility] Work Phone: Start: 08-09-2023 End: 08-09-2023 Patient encounter procedure No Primary Care Physician [facility] Work Phone: Start: 08-05-2023 Non-patient / Non-visit No [facility] Physician [facility] Start: 08-05-2023 End: 08-05-2023 ambulatory No Primary Care Physician [facility] Work Phone: Start: 08-05-2023 End: 08-05-2023 Patient encounter procedure No Primary Care Physician [facility] Out[facility] Work Phone: Start: 08-05-2023 End: 08-05-2023 Patient encounter procedure No Primary Care Physician [facility] Work Phone: Start: 07-30-2023 End: 07-30-2023 Patient encounter procedure No Primary Care Physician [facility] Work Phone: Start: 07-21-2023 End: 07-21-2023 ambulatory No Primary Care Physician [facility] Work Phone: Start: 07-21-2023 End: 07-21-2023 Patient encounter procedure No Primary Care Physician [facility]-Laboratory, Specimen Work Phone: Start: 07-21-2023 End: 07-21-2023 Patient encounter procedure No Primary Care Physician [facility] Work Phone: Start: 07-01-2023 End: 07-01-2023 Patient encounter procedure No Primary Care Physician [facility] Work Phone: Start: 06-19-2023 End: 06-19-2023 Patient encounter procedure No Primary Care Physician [facility] Work Phone: Start: 06-05-2023 End: 06-05-2023 Patient encounter procedure No Primary Care Physician [facility] Work Phone: Start: 05-22-2023 End: 05-22-2023 Patient encounter procedure No Primary Care Physician [facility] Work Phone: Start: 05-22-2023 End: 05-22-2023 ambulatory No Primary Care Physician [facility] Work Phone: Start: 05-22-2023 End: 05-22-2023 Patient encounter procedure No Primary Care Physician [facility] Ultrasound Work Phone: Start: 05-08-2023 End: 05-08-2023 ambulatory No Primary Care Physician [facility] Work Phone: Start: 05-08-2023 End: 05-08-2023 Patient encounter procedure No Primary Care Physician [facility] Work Phone: Start: 04-10-2023 End: 04-10-2023 ambulatory No Primary Care Physician [facility] Work Phone: Start: 04-10-2023 End: 04-10-2023 Patient encounter procedure No Primary Care Physician [facility] Work Phone: Start: 03-13-2023 End: 03-13-2023 Patient encounter procedure No Primary Care Physician [facility] Work Phone: Start: 02-13-2023 End: 02-13-2023 ambulatory No Primary Care Physician [facility] Work Phone: Start: 02-13-2023 End: 02-13-2023 Patient encounter procedure No Primary Care Physician [facility] Work Phone: Start: 01-26-2023 End: 01-26-2023 ambulatory No Primary Care Physician [facility] Work Phone: Start: 01-26-2023 End: 01-26-2023 Patient encounter procedure No Primary Care Physician [facility]-Laboratory, OP Pavilion Start: 01-16-2023 End: 01-16-2023 ambulatory No Primary Care Physician [facility] Work Phone: Start: 01-16-2023 End: 01-16-2023 Patient encounter procedure No Primary Care Physician [facility]-Laboratory, Specimen Work Phone: Start: 01-16-2023 End: 01-16-2023 Patient encounter procedure No Primary Care Physician [facility] Work Phone: Start: 01-05-2023 End: 01-05-2023 ambulatory [facility] Work Phone: Start: 01-05-2023 End: 01-05-2023 Patient encounter procedure [facility]-Ultrasound, [facility] Work Phone: Start: 12-26-2022 End: 12-26-2022 Patient encounter procedure [facility]-Laboratory, OP Pavilion Start: 08-19-2018 End: 08-19-2018 Patient encounter procedure DOCTOR ON NO [facility] Procedures Date Procedure Procedure Detail Performing Clinician Start: 07-21-2023 Group B Streptococcu s Culture No Primary Care Physician Start: 05-22-2023 Ultrasonography for antepartum monitoring of fetus No Primary Care Physician Start: 04-10-2023 Ultrasonography in f irst trimester No Primary Care Physician Start: 01-16-2023 Urine culture No Primar y Care Physician Start: 01-05-2023 Transvaginal obstetr ic ultrasonography Start: 06-08-2018 H/O: surgery H/O dilation a nd curettage Comment on above: retained placenta Plan of Treatment Date Care Activity Detail Author Start: 08-19-2023 Patient discharge [facility] Start: 08-17-2023 Administration of medication [facility] Start: 08-17-2023 Application of ice collar, cap or bag [facility] Start: 08-17-[address] [facility] Start: 08-17-2023 Introduction of urinary catheter [facility] Start: 08-17-2023 Measuring intake and output [facility] Start: 08-17-2023 Notification of physician [facility] Start: 08-17-2023 Procedure discontinued [facility] Start: 08-17-2023 Provision of activity privileges [facility] Start: 08-17-2023 Vital signs measurements [facility] Start: 08-17-2023 End: 08-17-2023 [facility] Start: 08-17-[address] [facility] Start: 08-17-2023 Admission procedure [facility] Start: 08-17-2023 Consultation [facility] Start: 08-09-2023 Nonstress test [facility] Start: 08-09-2023 Obstetric monitoring [facility] Start: 08-09-2023 Vital signs measurements [facility] Start: 08-09-2023 [facility] Start: 08-09-2023 Patient discharge [facility] Start: 08-05-2023 Nonstress test [facility] Start: 08-05-2023 Obstetric monitoring [facility] Start: 08-05-2023 Vital signs measurements [facility] Start: 08-05-2023 [facility] Start: 08-05-2023 Patient discharge [facility] Start: 01-16-2023 Chlamydia deoxyribonucleic acid detection [facility] Start: 01-16-2023 Liquid based cervical cytology screening [facility] CBC W Auto Different ial panel - Blood [facility] CBC W Auto Different ial panel - Blood [facility] Glucose [Mass/volume ] in Serum or Plasma --1 hour post 50 g glucose [facility] Glucose [Mass/volume ] in Serum or Plasma --1 hour post 50 g glucose PO [facility] Hepatitis B surface antigen measurement [facility] Hepatitis C antibody measurement [facility] HIV 1+2 Ab+HIV1 p24 Ag [Presence] in Serum or Plasma by Immunoassay [facility] HIV 1+2 Ab+HIV1 p24 Ag [Presence] in Serum or Plasma by Immunoassay [facility] MG Breast Diagnostic [facility] Neisseria gonorrhoea e rRNA [Presence] in Unspecified specimen by GIOVANNA with probe detection [facility] Path report.final Dx Spec [facility] Patient Education Kick [facility] ED False Labor OB Triage: Return to Hospital or Notify Physician if you Experience: [facility] Work Phone: Patient referral [facility] Work Phone: PCR test for Chlamyd ia trachomatis [facility] Rubella IgG measurement [facility] Treponema sp Ab [Pre sence] in Serum [facility] Treponema sp Ab [Pre sence] in Serum [facility] Ultrasonography in f irst trimester [facility] US Breast limited [facility] Payers Date Payer Category Payer Self-pay [id number] 2024 Unknown [id number] Unknown [employer] AID [id number] Unknown [id number] Unknown [id number] Unknown [id number] Unknown [id number] Social History Date Type Detail Facility Start: 12-31-2020 End: 08-17-2023 Tobacco smoking status NHIS Unknown if ever smoked [facility] Start: 1995 Sex Assigned At Female [facility] Start: 12-16-2024 Tobacco smoking stat us GAIS Never smoked tobacco (finding) [facility] Medical Equipment Procedure Code Equipment Code Equipment Origin al Text Equipment Identifier Dates Cystoscopy, with retrograde pyelogram and ureteral stent insertion Polymeric ureteral stent [id number] FDA Start: 07-05-2024 Blood Sugar Diagnostic (Freestyle Precision Conrad Strips) strip Start: 09-05-2020 End: 12-31-2020 Blood Sugar Diagnostic (Truetrack Test) strip Start: 08-29-2020 End: 12-31-2020 Blood Sugar Diagnostic (Freestyle Precision Conrad Strips) strip Start: 09-05-2020 End: 12-31-2020 Blood Sugar Diagnostic (Truetrack Test) strip Start: 08-29-2020 End: 12-31-2020 Blood Sugar Diagnostic (Freestyle Precision Conrad Strips) strip Start: 09-05-2020 End: 12-31-2020 Blood Sugar Diagnostic (Truetrack Test) strip Start: 08-29-2020 End: 12-31-2020 Blood Sugar Diagnostic (Freestyle Precision Conrad Strips) strip Start: 09-05-2020 End: 12-31-2020 Blood Sugar Diagnostic (Truetrack Test) strip Start: 08-29-2020 End: 12-31-2020 Blood Sugar Diagnostic (Freestyle Precision Conrad Strips) strip Start: 09-05-2020 End: 12-31-2020 Blood Sugar Diagnostic (Truetrack Test) strip Start: 08-29-2020 End: 12-31-2020 Blood Sugar Diagnostic (Freestyle Precision Conrad Strips) strip Start: 09-05-2020 End: 12-31-2020 Blood Sugar Diagnostic (Truetrack Test) strip Start: 08-29-2020 End: 12-31-2020 Blood Sugar Diagnostic (Freestyle Precision Conrad Strips) strip Start: 09-05-2020 End: 12-31-2020 Blood Sugar Diagnostic (Truetrack Test) strip Start: 08-29-2020 End: 12-31-2020 Blood Sugar Diagnostic (Freestyle Precision Conrad Strips) strip Start: 09-05-2020 End: 12-31-2020 Blood Sugar Diagnostic (Truetrack Test) strip Start: 08-29-2020 End: 12-31-2020 Blood Sugar Diagnostic (Freestyle Precision Conrad Strips) strip Start: 09-05-2020 End: 12-31-2020 Blood Sugar Diagnostic (Truetrack Test) strip Start: 08-29-2020 End: 12-31-2020 Blood Sugar Diagnostic (Freestyle Precision Conrad Strips) strip Start: 09-05-2020 End: 12-31-2020 Blood Sugar Diagnostic (Truetrack Test) strip Start: 08-29-2020 End: 12-31-2020 Blood Sugar Diagnostic (Freestyle Precision Conrad Strips) strip Start: 09-05-2020 End: 12-31-2020 Blood Sugar Diagnostic (Truetrack Test) strip Start: 08-29-2020 End: 12-31-2020 Blood Sugar Diagnostic (Freestyle Precision Conrad Strips) strip Start: 09-05-2020 End: 12-31-2020 Blood Sugar Diagnostic (Truetrack Test) strip Start: 08-29-2020 End: 12-31-2020 Goals Date Patient Goal Desired Activity /State Clinical Notes 01-16-2023 to 12-16-2024 Note Date & Type Note Facility 12-16-2024 Progress note [facility] 07-05-2024 Note [facility] Medical Records Department [address] [place] [address] History Physical Exam 07/05/24728 MR#: [id number] Acct: [id number] Name: RAY GONG Rep #: [id number] : 1995 29 From: Clifton Houston MD PCP: Care Physician,No Primary Status:ADM JANESSA Location: [facility] UQ108-5 HPI - General General Date of Admission: 07/04/24 Date of Service: 07/04/24 Chief Complaint: Right large kidney stone HPI Narrative RAY GONG, is a 29 F who presents to [facility] severe right flank pain she has been having right flank pain since Thursday then she got severe right flank pain and CAT scan was done and she was found to have an 8 mm stone in the distal right ureter with severe hydronephrosis, no chills no fevers but she does have vomiting and she is having some intractable pain and she was brought in for pain control currently she is comfortable. Discussed options of the patient with their either let her go home and see if she can pass a stone that is quite large or Tatar surgery put a stent in there wondering if is possible to laser the stone at this point I think it is can to be too tight too much inflammation so I recommended just to place a stent let the ureter dilate and then we will do the surgery and lasered at another setting once the situation under control and her kidney is decompressed. Patient was okay with this organ to proceed with a cystoscopy and stent placement in the OR today n.p.o. for surgery [facility] Medical History History of blood transfusion SROM (spontaneous rupture of membranes) hemorrhage depression Active labor at term Hyperglycemia in Family history of neural tube defect Family history of congenital heart defect Family history of cleft palate Anxiety Home Medications ???Medication ???Instructions ???Recorded ???Last Taken ???Type NK 07/04/24 Unknown History Allergy/AdvReac Type Severity Reaction Status Date / Time No Known Allergies Allergy Verified 07/04/24 19:31 Family History Mother Breast cancer Grandfather Cancer Grandmother Breast cancer Surgical History H/O dilation and curettage ( 08/2018) Social History household members: family housing: house number of children: 1 Smoking Status: Never smoker second hand exposure: No alcohol intake: never substance use type: does not use seatbelt use: always do you feel safe at home: Yes additional social history: [employer] ROS Constitutional Constitutional: Denies chills, fever(s) or malaise Eyes Eyes: Denies blurry vision or change in vision ENT HEENT: Reports none Cardiovascular Cardiovascular: Denies chest pain or palpitations Respiratory/Chest Respiratory/Chest: Denies cough or shortness of breath with exertion Gastrointestinal Gastrointestinal: Denies abdominal pain, constipation or diarrhea Musculoskeletal Musculoskeletal: Denies back pain, joint stiffness or joint swelling Integumentary Integumentary: Denies dry skin, jaundice, lesions or rash Neurologic Neurologic: Denies confusion, syncope or weakness Psychiatric Psychiatric: Reports none; Denies anxiety or depression Endocrine Endocrinology: Denies excessive sweating, fatigue or flushing Hematologic/Lymphatic Hematologic/Lymphatic: Denies anemia, easy bleeding or easy bruising Vital Signs Vital Signs Vital Signs: 07/04/24 19:29 07/04/24 21:29 07/04/24 22:30 Temperature 98.1 F Temperature Source Oral Pulse Rate 88 87 101 H Respiratory Rate 18 16 16 Respiratory Effort Respiratory Depth Respiratory Pattern Blood Pressure 137/98 H 131/89 H Blood Pressure Mean 111 103 Blood Pressure Source Blood Pressure Position Blood Pressure Location Pulse Ox 100 97 98 Oxygen Delivery Method Room Air Room Air Room Air 07/04/24 22:48 07/04/24 23:24 07/05/24 00:39 Temperature 97.5 F L 98.6 F Temperature Source Oral Pulse Rate 103 H 89 Respiratory Rate 17 16 Respiratory Effort Normal Non-Labored Respiratory Depth Normal Respiratory Pattern Normal Blood Pressure 136/82 H 111/76 Blood Pressure Mean 100 87 Blood Pressure Source Monitor Blood Pressure Position Semi-Fowlers Blood Pressure Location Right Arm Pulse Ox 98 98 Oxygen Delivery Method Room Air Room Air 07/05/24 06:24 Temperature 98.4 F Temperature Source Oral Pulse Rate 74 Respiratory Rate 14 Respiratory Effort Respiratory Depth Respiratory Pattern Blood Pressure 117/75 Blood Pressure Mean 89 (more content not included)... [facility] 08-19-2023 Progress note Note Date/Time August 19, 2023 7:4 7am [facility] Medical Records Department [address] [place] [id number] Progress Note - OBGYN 08/19/23 0746 MR#: [id number] Acct: [id number] Name: RAY GONG Rep #:[id number] : 1995 28 From: Lou Reyes NP [employer] PCP: Care Physician,No Primary Status :ADM IN Location: BQ219-4 Subjective Subjective Patient doing well without complaints. Tolerating PO. Ambulating and voiding without difficulty. Feeding well. Denies chest pain, shortness of breath, calf pain/swelling, fevers, chills, lightheadedness. Objective Data Objective Data Vital Signs: Vital Signs Temp Pulse Resp BP Pulse Ox O2 Del Method 98 F 57 L 16 108/55 L 97 Room Air 08/19/23 01:28 08/19/23 01:28 08/19/23 01:28 08/19/23 01:28 08/19/23 01:28 08/19/23 01:28 Oxygen Delivery Method Room Air Weight: 150 lb Body Mass Index (BMI) 25.7 Intake & Output: Intake and Output for Last 24 Hours 08/17/23 08/18/23 08/19/23 23:59 23:59 23:59 Intake Total 340 / 340 Output Total 600 / 600 Balance -260 / -260 Lab / Micro Data 08/17/23 20:00 Physical Exam Const alert and oriented x3 HEENT normocephalic Eyes PERRL Neck full ROM Resp normal respiratory effort GI soft to palpation GI Narrative: FF below U Assessment & Plan (1) (spontaneous vaginal delivery): COMMENT: 08/18/23 Melvin SHAYLA (2) History of hemorrhage: COMMENT: d/t retained placenta. Required GET from birthing center to hospital, 2 U PRBC and D&C. PLAN: Plan s/p PPD # 2 1. routine post delivery care 2. breast feeding- support given 3. rh positive 4. rubella immune 5. home today 08/19/23 0747 <Electronically signed by Lou Reyes NP [employer] CLAIM EXAMINER-C> Cosigner Signature (if applicable): CC: ~ Signed [facility] Work Phone: 1(806) 235-764703-12-2024 Progress note Author Dayana Felipe [facility] August 18, 2023 7:56am Note Date/Time August 18, 2023 7:5 6am [facility] Medical Records Department [address] [place] [address] Progress Note - OBGYN 08/18/23 0755 MR#: [id number] Acct: [id number] Name: RAY GONG Rep #:[id number] : 1995 28 From: Dayana Felipe CNM PCP: Care Physician,No Primary Status :ADM IN Location: [place] [address] Subjective Subjective Patient doing well without complaints. Tolerating PO. Ambulating and voiding without difficulty. Feeding well. Denies chest pain, shortness of breath, calf pain/swelling, fevers, chills, lightheadedness. Objective Data Objective Data Vital Signs: Vital Signs Temp Pulse Resp BP Pulse Ox O2 Del Method 98.3 F 67 16 108/66 98 Room Air 08/18/23 07:53 08/18/23 07:53 08/18/23 07:53 08/18/23 07:53 08/18/23 03:11 08/18/23 03:11 Oxygen Delivery Method Room Air Weight: 150 lb Body Mass Index (BMI) 25.7 Intake & Output: Intake and Output for Last 24 Hours 08/16/23 08/17/23 08/18/23 23:59 23:59 23:59 Intake Total 340 / 340 Output Total 600 / 600 Balance -260 / -260 Lab / Micro Data Attestation: I reviewed the patient's lab results. 08/17/23 20:00 Labs: Laboratory Results - last 24 hr 08/17/23 20:00: WBC 11.9 H, RBC 3.99 L, Hgb 12.7, Hct 37.2, MCV 93.2, MCH 31.8, MCHC 34.1, RDW Std Deviation 44.0 H, RDW Coeff of Desmond 13.0, Plt Count 200, MPV 9.2, Immature Gran % (Auto) 0.400, Neut % (Auto) 70.4 H, Lymph % (Auto) 21.1, [place] % (Auto) 7.7, Eos % (Auto) 0.2, Baso % (Auto) 0.2, Absolute Neuts (auto) 8.4 H, Absolute Lymphs (auto) 2.50, Nucleated RBC % 0, Syphilis Total Ab Non-reactive, Blood Type A POSITIVE, Antibody Screen NEGATIVE ROS Constitutional Constitutional: Reports systems reviewed and no addt'l complaints, except as documented; Denies anorexia or headache(s) Cardiovascular Cardiovascular: Reports systems reviewed and no addt'l complaints, except as documented; Denies dizziness, dyspnea, nausea or tachypnea Respiratory/Chest Respiratory/Chest: Reports systems reviewed and no addt'l complaints, except as documented; Denies cough, dyspnea, shortness of breath at rest or tachypnea Gastrointestinal Gastrointestinal: Reports systems reviewed and no addt'l complaints, except as documented; Denies abdominal pain, constipation or nausea Genitourinary Genitourinary: Reports systems reviewed and no addt'l complaints, except as documented; Denies burning urination, difficulty urinating, dysuria, urinary frequency or urinary incontinence Musculoskeletal Musculoskeletal: Reports systems reviewed and no addt'l complaints, except as documented Integumentary Integumentary: Reports systems reviewed and no addt'l complaints, except as documented Neurologic Neurologic: Reports systems reviewed and no addt'l complaints, except as documented; Denies abnormal speech, dizziness or headache(s) Psychiatric Psychiatric: Reports systems reviewed and no addt'l complaints, except as documented Endocrine Endocrinology: Reports systems reviewed and no addt'l complaints, except as documented Hematologic/Lymphatic Hematologic/Lymphatic: Reports systems reviewed and no addt'l complaints, exceptas documented Physical Exam Const alert, oriented x3 and no apparent distress Neck full ROM Resp normal respiratory effort, normal air movement and no retractions Effort and Inspection: able to speak in complete sentences and symmetric chest movement GI soft to palpation Bladder / Kidney Exam: bladder normal to palpation Uterus Palpation: uterus fundus firm Extremity normal to inspection and full ROM Psych mental status grossly normal, thought process normal and cooperative Assessment & Plan (1) (spontaneous vaginal delivery): PLAN: s/p PPD # 1 1. routine post delivery care 2. breast feeding- support given 3. rh positive 4. rubella immune Charges/Coding Multi Select Codes Urinary/Genital Urinary/Genital CPT Codes: No Charge 08/18/23 0756 <Electronically signed by Dayana Felipe CNM> Cosigner Signature (if applicable): CC: ~ Signed [facility] Work Phone: 1(264) 974-652303-11-2024 Discharge summary Author Irina Barth [facility] August 17, 2023 9:09pm Note Date/Time August 17, 2023 9:0 9pm [facility] Medical Records Department [address] [place] [id number] Instructions for Home/Discharge Instructions 08/17/232107 MR#: [id number] Acct: [id number] Name: RAY GONG Rep #:[id number] : 1995 28 From: Irina Barth CNM PCP: Care Physician,No Primary Status :ADM IN Discharge Instructions Diet Discharge Diet: No restrictions Activity Discharge Activity: May Not Drive and May Shower May resume sexual activity in: 6 weeks Weight Bearing Status: Full weight bearing Dressing / Incision Call your doctor if your incision/area has: Sudden Increased Bleeding, IncreasedPain/ Swelling and Foul Smelling Discharge Call your doctor if you observe: Fever of 101 or Higher, Numbness or Tingling, Change in Color, Inability to urinate, Inability to have a bowel movement, Usingmore than 1 pad per hour, Shortness of breath, Dizziness, Fainting spells, Chestpain, Calf discomfort and Uncontrolled pain Follow Up Care Please Follow Up With: Irina Barth CNM When: 6 weeks , please call office to make an appointment. Congratulations on the of your baby! Test Results: Test results from this visit will be discussed in further detail at your follow- up appointment, if applicable. Discharge Plan Admission Admit Date/Time: 08/17/23 19:55 Attending Provider: Irina Barth Primary Care Provider: Care Physician,Lizeth Primary Discharge Orders/Prescriptions Prescriptions: No Action vit,[id number] 1 TABLET tablet 1 tab PO DAILY Referrals / Follow Up: Care Physician,No Primary [Primary Care Provider] - 08/17/232108<Electronically signed by Irina Barth CNM>Irina Barth CNM CC: No Primary Care Physician ~ Signed [facility] Work Phone: 1(832) 515-551303-11-2024 History and physical note Author Irina Barth [facility] August 17, 2023 9:05pm Note Date/Time August 17, 2023 9:0 5pm [facility] Medical Records Department [address] [place] [address] H&P 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 +contractions with worsening intensity, denies vb. good fm. Maternal Data Information CAR[place] Calculator Estimated Delivery Date Method Current WG Current Estimate 08/12/23 LMP (Certain) 40w 5d Other Estimates 08/17/23 Ultrasound #1 40w 0d PFSH PFSH Medical History (Updated 08/17/23 @ 21:04 by Irina Barth CNM) Active labor at term Anxiety Family history of cleft palate Family history of congenital heart defect Family history of neural tube defect H/O maternal blood transfusion, currently (~08/2019) H/O hemorrhage, currently Hyperglycemia in depression hemorrhage Home Medications vits,calcium no.78-iron fumarate-folic acid 29 mg-1 mg tablet 1 tab PO DAILY 04/14/18 [History Last Taken 04/09/18 10:00] Allergy/AdvReac Type Severity Reaction Status Date / Time No Known Allergies Allergy Verified 08/12/23 14:16 Family History Mother Breast cancer Grandfather Cancer Grandmother Breast cancer Surgical History H/O dilation and curettage (~08/2018) Social History household members: family housing: house number of children: 1 Smoking Status: Never smoker second hand exposure: No alcohol intake: never substance use type: does not use seatbelt use: always do you feel safe at home: Yes additional social history: [employer] History 3 Elective abortions Hx Para 2 Spontaneous abortions Hx # Term Pregnancies Ectopic pregnancies Hx # Pregnancies Multiple births # of living children 2 Past Pregnancies Del. Date Name GA/Weeks Outcome Route Bth Weight [facility] Roland 40 live - full term 8lbs 15oz Male 8 h ours none Birthing Center in [place] 11/19/20 Tl 39 live - full term Male [facility] Marcanthony Delivery Date: 08/19/18 Last Updated by: Elise Carpenter hemorrhage- retained placenta, post dilation and curettage; blood transfusion- received 2 units of blood at [facility] Visit Details Expected Delivery Route/Plan Labor Preferences- CB/BF classes: na labor support person: Ameena labor intervention preferences: unmedicated pain management options preferred: [] cut cord/dad catch: [] : yes PP control planned: condoms discussed possible routes of delivery and associated risks: discussed special requests: [] Plans Covid status: declines Flu vaccine: declines Tdap vaccine: declines Rhogam: na LARC form signed: completed Problem list reviewed and updated with the most current plan of care details and appropriate orders placed. Relevant counseling for the gestational age provided. Continue routine care and follow up unless otherwise noted in visit notes/problem list details OB Flowsheet Initial Weight: 127 lb Date -?-?-?-?-?-?-?-?-?-?-?-?- EGA Weight BP Urine Prot -?-?-?-?-?-?-?-?-?-?-?-?- Glucose FHR FuHt Pres Dilation -?-?-?-?-?-?-?-?-?-?-?-?- Effaced St Visit Note 01/16/23 -?-?-?-?-?-?-?-?-?-?-?-?- 10w 2d 127 lb (+0 oz) 110/62 -?-?-?-?-?-?-?-?-?-?-?-?- 175 -?-?-?-?-?-?-?-?-?-?-?-?- LC- early trimes ter us con with LMP. CAR[place]INA 08/11/2023. early glucose for hx of gestational diabetes.declines nipt. 02/13/23 -?-?-?-?-?-?-?-?-?-?-?-?- 14w 2d 130 lb 4 oz (+3 lb 4 oz) 116/72 -?-?-?-?-?-?-?-?-?-?-?-?- 150 -?-?-?-?-?-?-?-?-?-?-?-?- LC- no vb/crampi ng. declines afp. passed 1 hour glucose. LC- no vb/cramping. declines afp. passed [address] [facility] for anatomy scan. 03/13/23 -?-?-?-?-?-?-?-?-?-?-?-?- 18w 2d 132 lb 6 oz (+5 lb 6 oz) 110/74 Negative -?-?-?-?-?-?-?-?-?-?-?-?- Negative 154 -?-?-?-?-?-?-?-?-?-?-?-?- LC- no vb/occ cr amping when over active. increasing PO hydration/rest. 04/10/23 -?--?-?-?-?-?-?-?-?-?-?-?- 22w 2d 137 lb (+10 lb) 104/70 Negative -?-?-?-?-?-?-?-?-?-?-?-?- Negative 150 22 -?-?-?-?-?-?-?-?-?-?-?-?- KW-no vb/wisam luevano good fm. anatomy scan today. GCT next visit. 05/08/23 -?-?-?-?-?-?-?-?-?-?-?-?- 26w 2d 140 lb 8 oz (+13 lb 8 oz) 112/64 -?-?-?-?-?-?-?-?-?-?-?-?- 138 26 -?-?-?-?-?-?-?-?-?-?-?-?- LC- no vb/ctx/lo f. good fm. 28 week labs pending. 05/22/23 -?-?-?-?-?-?-?-?--?-?-?-?- 28w 2d 141 lb 8 oz (+14 lb 8 oz) 95/61 Negative -?-?-?-?-?-?-?-?-?-?-?-?- Negative 135 28 -?-?-?-?-?-?-?-?-?-?-?-?- LC- no vb/ctx/lo f.good fm. passed 28 week labs. LC- no vb/ctx/lof.good fm. p assed 28 week labs. larc complete, declines tdap.no concerns. 06/05/23 -?-?-?-?-?-?-?-?-?-?-?-?- 30w 2d 145 lb 6 oz (+18 lb 6 oz) 94/62 Negative -?-?-?-?-?-?-?-?-?-?-?-?- Negative 140 30 -?-?-?-?-?-?-?-?-?-?-?-?- SM- no vb lof go od fm no regular ctx 06/19/23 -?-?-?-?-?-?-?-?-?-?-?-?- 32w 2d 144 lb (+17 lb) 91/61 Negative -?-?-?-?-?-?-?-?-?-?-?-?- Negative 157 32 -?-?-?-?-?-?-?-?-?-?-?-?- JV- no lof, vagi nal bleeding or dec fm. 07/01/23 -?-?-?-?-?-?-?-?-?-?-?-?- 34w 0d 145 lb 4 oz (+18 lb 4 oz) 103/68 Negative -?-?-?-?-?-?-?-?-?-?-?-?- Negative 138 34 -?-?-?-?-?-?-?-?-?-?-?-?- LC- no vb/ctx/lo f. good fm. no concerns. 07/21/23 -?-?-?-?-?-?-?-?-?-?-?-?- 36w 6d 148 lb (+21 lb) 110/66 Negative -?-?-?-?-?-?-?-?-?-?-?-?- Negative 141 35 Cephalic 1 -?-?-?-?-?-?-?-?-?-?-?-?- 50 -3 MH-No VB, LOF. Good FM. Irreg CTX. GBS 07/30/23 -?-?-?-?-?-?-?-?-?-?-?-?- 38w 1d 148 lb (+21 lb) 106/63 Negative -?-?-?-?-?-?-?-?-?-?-?-?- Negative 160 37 Cephalic 2 -?-?-?-?-?-?-?-?-?-?-?-?- 70 -2 SM- irregu lar ctx no vb lof good fm 08/05/23 -?-?-?-?-?-?-?-?-?-?-?-?- 39w 0d 149 lb 2 oz (+22 lb 2 oz) 119/67 Negative -?-?-?-?-?-?-?-?-?-?-?-?- Negative 155 38 Cephalic 3 -?-?-?-?-?-?-?-?-?-?-?-?- 70 -2 JV- no lof , vaginal bleeding, or dec fm. KADEN is 8, audible decel noted , NST: JV- no lof, vaginal bleeding , or dec fm. KADEN is 8, audible decel noted , NST: shows marked variability but 3 separate times when the monitor was either off or the heart rate was in the 90's. sending to L&D now for further work up and monitoring. 08/12/23 -?-?-?-?-?-?-?-?-?-?-?-?- 40w 0d 150 lb 6 oz (+23 lb 6 oz) 129/78 Negative -?-?-?-?-?-?-?-?-?-?-?-?- Negative 150 39 Cephalic 3 -?-?-?-?-?-?-?-?-?-?-?-?- 70 -2 LC- no lof /vb/ctx. good fm. plan of KADEN/NST next thursday if still with IOL to be set up 08/23 NST FHR Rate Baby A Baseline: 125, broken up tracing Variability:: Moderate Decelerations:: Early FHR Category:: Category I Uterine Activity:: q2 ROS Cardiovascular Cardiovascular: Denies abdominal pain, chest pain, diaphoresis or dyspnea Respiratory/Chest Respiratory/Chest: Denies change in mental status, chest congestion, chest tightness, cough, shortness of breath at rest, shortness of breath with exertion, breast mass, breast pain, breast skin changes, breast swelling, change in breast shape or nipple discharge Genitourinary Genitourinary: Reports change in urinary stream Musculoskeletal Musculoskeletal: Reports none Integumentary Integumentary: Reports none Neurologic Neurologic: Reports none Psychiatric Psychiatric: Reports none Endocrine Endocrinology: Reports none Hematologic/Lymphatic Hematologic/Lymphatic: Reports none Allergic/Immunologic Allergic/Immunologic: Reports none Vital Signs Vital Signs Vital Signs: 08/17/23 20:47 08/17/23 20:47 08/17/23 20:47 Temperature Temperature Source Temporal Pulse Rate 75 Respiratory Rate Blood Pressure 123/59 H BP Systolic 123 BP Diastolic 59 Pulse Ox 08/17/23 20:47 08/17/23 20:47 08/17/23 20:47 Temperature 98.3 F Temperature Source Pulse Rate Respiratory Rate 16 Blood Pressure BP Systolic BP Diastolic Pulse Ox 99 08/17/23 20:56 08/17/23 20:56 Temperature Temperature Source Pulse Rate 88 Respiratory Rate Blood Pressure BP Systolic BP Diastolic Pulse Ox 99 Weight Weight: 150 lb Body Mass Index (BMI) 25.7 Physical Exam Const alert, oriented x3 and no apparent distress General Appearance: cooperative, comfortable and well kempt Orientation / Consciousness: awake and oriented to person Exam Limitations: no limitations HEENT normocephalic Neck full ROM Chest inspection of chest normal Resp normal respiratory effort, normal air movement and no retractions Effort and Inspection: able to speak in complete sentences and symmetric chest movement Cardio regular rate Peripheral Pulses: pulses 2+ throughout GI normal to inspection, nondistended, normoactive bowel sounds Inspection: gravid no CVA tenderness and appearance of the vagina normal External Female Exam: normal appearance of the urethra; Negative for external lesion OB / External & Speculum: external exam normal Manual OB Exam: estimated gestational size appropriate and presentation cephalic Uterus Palpation: Negative for uterus tender Extremity normal to inspection Skin no rashes or lesions noted Neuro deep tendon reflexes 2+ bilaterally and gait normal Motor Exam: strength 5/5 throughout and clonus absent Psych Activity / Motor Behavior: appropriate eye contact Speech: normal speech Labs Labs Labs: Blood Type A POSITIVE Antibody Screen NEGATIVE Hct 37.2 % (37-47) Hgb 12.7 g/dL (12.0-15.0) Obstetrics Ultrasound Syphilis Total Ab Non-reactive Rubella IgG Antibody Reactive (Nonreactive) Hep Bs Antigen Non-Reactive (Nonreactive) Hepatitis C Antibody Non-Reactive (Nonreactive) Chlamydia DNA (GIOVANNA) Negative (Negative) N.gonorrhoeae DNA (GIOVANNA) Negative (Negative) HIV 1&2 Antibody Non-Reactive (Nonreactive) Glucose 1 Hr 50 gm 105 mg/dL (70-140) Rhogam given: No Assessment & Plan (1) SROM (spontaneous rupture of membranes): COMMENT: at 1900 clear. (2) History of hemorrhage: COMMENT: d/t retained placenta. Required GET from birthing center to hospital, 2 U PRBC and D&C. (3) : QUALIFIERS: Weeks of gestation: 40 weeks Qualified Code(s): Z3A.40 - 40 weeks gestation of COMMENT: neg GBS. declines nipt and carrier. declines afp., nl 3 HR GTT and anatomy. (4) Supervision of normal : QUALIFIERS: Normal : other normal Trimester: third trimester Qualified Code(s): Z34.83 - Encounter for supervision of other normal , third trimester COMMENT: PRR CAROLINA 08/11/2023 Tl Diaz. sp: Ameena. (5) Active labor at term: COMMENT: IAL at term. PLAN: Plan Patient presents IAL, plan expectant management for , pitocin/AROM PRN if needed. Pain management: plan unmedicated. GBS negative. Management of any complications: none I have reviewed the [facility] and made any clinically relevant updates. updated on admission, exam and poc. 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 08/17/232104 <Electronically signed by Irina Barth CNM> Cosigner Signature (if applicable): CC: CONSUELO Barth; No Primary Care Physician~ Signed [facility] Work Phone: 1(126) 481-120503-11-2024 Procedure [facility] 01-16-2023 NotePap Smear Specimen AdequacyAugust 2022 5:09pmComment. Satisfactory for evaluation. Endocervical and/or squamous metaplasticcells (endocervical component)are present.[facility] A#[id number] HospitalComment on above:Satisfactory for evaluation. Endocervical and/or squamous metaplasticcells (endocervical component)are present.01-16-2023 NotePap Smear Specimen AdequacyAugust 2022 5:09pmComment.Satisfactory for evaluation. Endocervical and/or squamous metaplasticcells (endocervical component)are present.[facility] A#[id number] Hospital Comment on above:Satisfactory for evaluation. Endocervical and/or squamous metaplasticcells (endocervical component)are present.01-16-2023 NotePap Smear Specimen AdequacyAugust 2022 4:09pmComment.Satisfactory for evaluation. Endocervical and/or squamous metaplasticcells (endocervical component)are present.[facility] A#[id number] HospitalComment on above: Satisfactory for evaluation. Endocervical and/or squamous metaplasticcells (endocervical component)are present.01-16-2023 NotePap Smear Specimen Adequacy January 16, 2023 4:09pmComment.Satisfactory for evaluation. Endocervical and/or squamous metaplasticcells (endocervical component)are present.[facility] A#[id number] HospitalComment on above:Satisfactory for evaluation. Endocervical and/or squamous metaplasticcells (endocervical component)are present.Evaluation noteNo assessment information availableWEast [facility] Work Phone: Evaluation note* Diagnosis Onset Date Resolution Status History of gestational diabetes acute History of hemorrhage acute acute Supervision of normal acute Family history of cleft palate resolved Family history of congenital heart defect resolved Family history of neural tube defect resolved [facility] Work Phone: Evaluation note* Diagnosis Onset Date Resolution Status History of gestational diabetes acute History of hemorrhage acute acute Supervision of normal acute Family history of cleft palate resolved Family history of congenital heart defect resolved Family history of neural tube defect resolved History of gestational diabetes acute History of hemorrhage acute acute Supervision of normal acute [facility] Work Phone: Evaluation note* Diagnosis Onset Date Resolution Status History of gestational diabetes acute History of hemorrhage acute acute Supervision of normal acute Family history of cleft palate resolved Family history of congenital heart defect resolved Family history of neural tube defect resolved History of gestational diabetes acute History of hemorrhage acute acute Supervision of normal acute History of gestational diabetes acute History of hemorrhage acute acute Supervision of normal acute [facility] Work Phone: Evaluation note* Diagnosis Onset Date Resolution Status History of gestational diabetes acute History of hemorrhage acute acute Supervision of normal acute Family history of cleft palate resolved Family history of congenital heart defect resolved Family history of neural tube defect resolved History of gestational diabetes acute History of hemorrhage acute acute Supervision of normal acute History of gestational diabetes acute History of hemorrhage acute acute Supervision of normal acute History of gestational diabetes acute History of hemorrhage acute Low lying placenta nos or wi thout hemorrhage, second trimester acute acute Supervision of normal acute History of gestational diabetes acute History of hemorrhage acute Low lying placenta nos or wi thout hemorrhage, second trimester acute acute Supervision of normal acute [facility] Work Phone: evaluation note* Diagnosis Onset Date Resolution Status History of gestational diabetes acute History of hemorrhage acute acute Supervision of normal acute History of gestational diabetes acute History of hemorrhage acute acute Supervision of normal acute History of gestational diabetes acute History of hemorrhage acute Low lying placenta nos or wi thout hemorrhage, second trimester acute acute Supervision of normal acute History of gestational diabetes acute History of hemorrhage acute Low lying placenta nos or wi thout hemorrhage, second trimester acute acute Supervision of normal acute History of gestational diabetes acute History of hemorrhage acute Low lying placenta nos or wi thout hemorrhage, second trimester acute acute Supervision of normal acute [facility] Work Phone: evaluation note* Diagnosis Onset Date Resolution Status History of hemorrhage acute acute Supervision of normal acute History of gestational diabetes resolved Low lying placenta nos or wi thout hemorrhage, second trimester resolved History of hemorrhage acute acute Supervision of normal acute History of gestational diabetes resolved Low lying placenta nos or wi thout hemorrhage, second trimester resolved History of hemorrhage acute acute Supervision of normal acute History of gestational diabetes resolved Low lying placenta nos or wi thout hemorrhage, second trimester resolved History of hemorrhage acute acute Supervision of normal acute Low lying placenta nos or wi thout hemorrhage, second trimester resolved History of hemorrhage acute acute Supervision of normal acute History of hemorrhage acute acute Supervision of normal acute History of hemorrhage acute acute Supervision of normal acute [facility] Work Phone: evaluation note* Diagnosis Onset Date Resolution Status History of hemorrhage acute acute Supervision of normal acute History of gestational diabetes resolved Low lying placenta nos or wi thout hemorrhage, second trimester resolved History of hemorrhage acute acute Supervision of normal acute History of gestational diabetes resolved Low lying placenta nos or wi thout hemorrhage, second trimester resolved History of hemorrhage acute acute Supervision of normal acute History of gestational diabetes resolved Low lying placenta nos or wi thout hemorrhage, second trimester resolved History of hemorrhage acute acute Supervision of normal acute Low lying placenta nos or wi thout hemorrhage, second trimester resolved History of hemorrhage acute acute Supervision of normal acute History of hemorrhage acute acute Supervision of normal acute History of hemorrhage acute acute Supervision of normal acute History of hemorrhage acute acute Supervision of normal acute History of hemorrhage acute acute Supervision of normal acute History of hemorrhage acute acute Supervision of normal acute [facility] Work Phone: Evaluation note* Diagnosis Onset Date Resolution Status History of hemorrhage acute acute Supervision of normal acute History of gestational diabetes resolved Low lying placenta nos or wi thout hemorrhage, second trimester resolved History of hemorrhage acute acute Supervision of normal acute History of gestational diabetes resolved Low lying placenta nos or wi thout hemorrhage, second trimester resolved History of hemorrhage acute acute Supervision of normal acute Low lying placenta nos or wi thout hemorrhage, second trimester resolved History of hemorrhage acute acute Supervision of normal acute History of hemorrhage acute acute Supervision of normal acute History of hemorrhage acute acute Supervision of normal acute History of hemorrhage acute acute Supervision of normal acute History of hemorrhage acute acute Supervision of normal acute History of hemorrhage acute acute Supervision of normal acute [facility] Work Phone: Evaluation note* Diagnosis Onset Date Resolution Status History of hemorrhage acute History of gestational diabetes resolved Low lying placenta nos or wi thout hemorrhage, second trimester resolved resolved Supervision of normal resolved History of hemorrhage acute History of gestational diabetes resolved Low lying placenta nos or wi thout hemorrhage, second trimester resolved resolved Supervision of normal resolved History of hemorrhage acute Low lying placenta nos or wi thout hemorrhage, second trimester resolved resolved Supervision of normal resolved History of hemorrhage acute resolved Supervision of normal resolved History of hemorrhage acute resolved Supervision of normal resolved History of hemorrhage acute resolved Supervision of normal resolved History of hemorrhage acute resolved Supervision of normal resolved History of hemorrhage acute resolved Supervision of normal resolved History of hemorrhage acute resolved Supervision of normal resolved No leakage of amniotic fluid into vagina resolved History of hemorrhage acute No leakage of amniotic fluid into vagina resolved resolved Supervision of normal resolved History of hemorrhage acute (spontaneous vaginal delivery) acute resolved Supervision of normal resolved [facility] Work Phone: Evaluation note* Diagnosis Onset Date Resolution Status Admit Date Breast lump acute December 16 11:48am [facility] Work Phone: History and physical note Author Argentina Bravo [facility] August 05, 2023 5:14pm Note Date/Time August 05, 2023 5:14pm [facility] Medical Records Department [address] [place] [address] OB Triage Physician Note 08/05/23 1713 MR#: [id number] Acct: [id number] Name: RAY GONG Rep #:[id number] : 1995 28 From: Argentina Soler DO PCP: Care Physician,No Primary Status :REG CLI Y Location: [id number] HPI - General HPI Narrative RAY GONG, is a 28 y/o @ 39 weeks who was sent to L&D for monitoring due to audible decels in the office and inconclusice nst. NST here is reactive and without decelerations. She is starting to feel contractions but does not think she is in labor. Maternal Data Information CAROLINA Calculator Estimated Delivery Date Method Current WG Current Estimate 08/12/23 LMP (Certain) 39w 0d Other Estimates 08/17/23 Ultrasound #1 38w 2d PFSH PFSH Medical History Anxiety Family history of cleft palate Family history of congenital heart defect Family history of neural tube defect H/O maternal blood transfusion, currently (~08/2019) H/O hemorrhage, currently Hyperglycemia in depression hemorrhage Home Medications vits,calcium no.78-iron fumarate-folic acid 29 mg-1 mg tablet 1 tab PO DAILY 04/14/18 [History Last Taken 04/09/18 10:00] Allergy/AdvReac Type Severity Reaction Status Date / Time No Known Allergies Allergy Verified 07/30/23 13:26 Family History Mother Breast cancer Grandfather Cancer Grandmother Breast cancer Surgical History H/O dilation and curettage (~08/2018) Social History household members: family housing: house number of children: 1 Smoking Status: Never smoker second hand exposure: No alcohol intake: never substance use type: does not use seatbelt use: always do you feel safe at home: Yes additional social history: [employer] History 3 Elective abortions Hx Para 2 Spontaneous abortions Hx # Term Pregnancies Ectopic pregnancies Hx # Pregnancies Multiple births # of living children 2 Past Pregnancies Del. Date Name GA/Weeks Outcome Route Bth Weight Infant Gen Labor Lgth Anesthesia Del Locatn Provider FOB 08/19/18 Roland 40 live - full term 8lbs 15oz Male 8 h ours none Birthing Center in [place] 11/19/20 Tl 39 live - full term [facility] Date: 08/19/18 Last Updated by: Elise Carpenter hemorrhage- retained placenta, post dilation and curettage; blood transfusion- received 2 units of blood at [facility] Visit Details Expected Delivery Route/Plan Labor Preferences- CB/BF classes: na labor support person: Ameena labor intervention preferences: unmedicated pain management options preferred: [] cut cord/dad catch: [] : yes PP control planned: condoms discussed possible routes of delivery and associated risks: discussed special requests: [] Plans Covid status: declines Flu vaccine: declines Tdap vaccine: declines Rhogam: na LARC form signed: completed Problem list reviewed and updated with the most current plan of care details and appropriate orders placed. Relevant counseling for the gestational age provided. Continue routine care and follow up unless otherwise noted in visit notes/problem list details OB Flowsheet Initial Weight: 127 lb Date -?-?-?-?-?-?-?-?-?-?-?-?- EGA Weight BP Urine Prot -?-?-?-?-?-?-?-?-?-?-?-?- Glucose FHR FuHt Pres Dilation -?-?-?-?-?-?-?-?-?-?-?-?- Effaced St Visit Note 01/16/23 -?-?-?-?-?-?-?-?-?-?-?-?- 10w 2d 127 lb (+0 oz) 110/62 -?-?-?-?-?-?-?-?-?-?-?-?- 175 -?-?-?-?-?-?-?-?-?-?-?-?- LC- early trimes ter us con with LMP. CAR[place] 08/11/2023. early glucose for hx of gestational diabetes.declines nipt. 02/13/23 -?-?-?-?-?-?-?-?-?-?-?-?- 14w 2d 130 lb 4 oz (+3 lb 4 oz) 116/72 -?-?-?-?-?-?-?-?-?-?-?-?- 150 -?-?-?-?-?-?-?-?-?-?-?-?- LC- no vb/crampi ng. declines afp. passed 1 hour glucose. LC- no vb/cramping. declines afp. passed [address] [facility] for anatomy scan. 03/13/23 -?-?-?-?-?-?-?-?-?-?-?-?- 18w 2d 132 lb 6 oz (+5 lb 6 oz) 110/74 Negative -?-?-?-?-?-?-?-?-?-?-?-?- Negative 154 -?-?-?-?-?-?-?-?-?-?-?-?- LC- no vb/occ cr amping when over active. increasing PO hydration/rest. 04/10/23 -?-?-?-?-?-?-?-?-?-?-?-?- 22w 2d 137 lb (+10 lb) 104/70 Negative -?-?-?-?-?-?-?-?-?-?-?-?- Negative 150 22 -?-?-?-?-?-?-?-?-?-?-?-?- KW-no vb/crazarain bassem good fm. anatomy scan today. GCT next visit. 05/08/23 -?-?-?-?-?-?-?-?-?-?-?-?- 26w 2d 140 lb 8 oz (+13 lb 8 oz) 112/64 -?-?-?-?-?-?-?-?-?-?-?-?- 138 26 -?-?-?-?-?-?-?-?-?-?-?-?- LC- no vb/ctx/lo f. good fm. 28 week labs pending. 05/22/23 -?--?-?-?-?-?-?-?-?-?-?-?- 28w 2d 141 lb 8 oz (+14 lb 8 oz) 95/61 Negative -?-?-?-?-?-?-?-?-?-?-?-?- Negative 135 28 -?-?-?-?-?-?-?-?-?-?-?--?- LC- no vb/ctx/lo f.good fm. passed 28 week labs. LC- no vb/ctx/lof.good fm. p assed 28 week labs. larc complete, declines tdap.no concerns. 06/05/23 -?-?-?-?-?-?-?-?-?--?-?-?- 30w 2d 145 lb 6 oz (+18 lb 6 oz) 94/62 Negative -?-?-?-?-?-?-?-?-?-?-?-?- Negative 140 30 -?-?-?-?-?-?-?-?-?-?-?-?- SM- no vb lof go od fm no regular ctx 06/19/23 -?-?-?-?-?-?-?-?-?-?-?-?- 32w 2d 144 lb (+17 lb) 91/61 Negative -?-?-?-?-?-?-?-?-?-?--?-?- Negative 157 32 -?-?-?-?-?-?-?-?-?-?-?-?- JV- no lof, vagi nal bleeding or dec fm. 07/01/23 -?-?-?-?-?-?-?-?-?-?-?-?- 34w 0d 145 lb 4 oz (+18 lb 4 oz) 103/68 Negative -?-?-?-?-?-?-?-?-?-?-?-?- Negative 138 34 -?-?-?-?-?-?-?-?-?-?-?-?- LC- no vb/ctx/lo f. good fm. no concerns. 07/21/23 -?-?-?-?-?-?-?-?-?-?-?-?- 36w 6d 148 lb (+21 lb) 110/66 Negative -?-?-?-?-?-?-?-?-?-?-?-?- Negative 141 35 Cephalic 1 -?-?-?-?-?-?-?-?-?-?-?-?- 50 -3 MH-No VB, LOF. Good FM. Irreg CTX. GBS 07/30/23 -?-?-?-?-?-?-?-?-?-?-?-?- 38w 1d 148 lb (+21 lb) 106/63 Negative -?-?-?-?-?-?-?-?-?-?-?-?- Negative 160 37 Cephalic 2 -?-?-?-?-?-?-?-?-?-?-?-?- 70 -2 SM- irregu lar ctx no vb lof good fm 08/05/23 -?-?-?-?-?-?-?-?-?-?-?-?- 39w 0d 149 lb 2 oz (+22 lb 2 oz) 119/67 Negative -?-?-?-?-?-?-?-?-?-?-?-?- Negative 155 38 Cephalic 3 -?-?-?-?-?-?-?-?-?-?-?-?- 70 -2 JV- no lof , vaginal bleeding, or dec fm. KADEN is 8, audible decel noted , NST: JV- no lof, vaginal bleeding , or dec fm. KADEN is 8, audible decel noted , NST: shows marked variability but 3 separate times when the monitor was either off or the heart rate was in the 90's. sending to L&D now for further work up and monitoring. ROS Constitutional Constitutional: Reports systems reviewed and no addt'l complaints, except as documented Gastrointestinal Gastrointestinal: Denies bloating, constipation, cramping, diarrhea, nausea or vomiting Genitourinary Genitourinary: Reports other Details: Denies vaginal odor, vaginal bleeding, or vaginal discharge ; Denies difficulty urinating or flank pain Physical Exam HEENT normocephalic Resp normal respiratory effort and normal air movement no CVA tenderness Extremity normal to inspection General Extremity: edema bilateral (trace ) NST FHR Rate Baby A Baseline: 120 Variability:: Moderate Accelerations:: 15 x 15 Decelerations:: None NST Reactive:: Yes FHR Category:: Category I Assessment & Plan (1) History of hemorrhage: COMMENT: d/t retained placenta. Required GET from birthing center to hospital, 2 U PRBC and D&C. (2) : QUALIFIERS: Weeks of gestation: 39 weeks Qualified Code(s): Z3A.39 - 39 weeks gestation of COMMENT: neg GBS. declines nipt and carrier. declines afp., nl 3 HR GTT and anatomy. (3) Supervision of normal : QUALIFIERS: Normal : other normal Trimester: third trimester Qualified Code(s): Z34.83 - Encounter for supervision of other normal , third trimester COMMENT: PRR CAROLINA 08/11/2023 Tl Diaz. sp: Ameena. PLAN: Plan false decelerations heard in office, likely was maternal. Has been on L&D for over an hour and has a cat1 tracing ok to dc to home now. return if contractions increase. Charges/Coding Multi Select Codes Visit Charges Office Visit/Consults: 21269 OV L3 Est 20min Urinary/Genital Urinary/Genital CPT Codes: 31470-72 non-stress test Interp 08/05/23 1714 <Electronically signed by Argentina Haley DO> Date _ Argentina Soler DO Cosigner Signature (if applicable): Date CC: Dr. Argentina Soler, DO; No Primary Care Physician ~ Signed [facility] Work Phone: Progress note Author Dayana Felipe [facility] Note Date/Time December 16, 2024 12:1 2pm [facility] [address] [place] [address], [address] [place] [address] OFFICE VISIT Date of Service: 12/16/24 MR#: [id number] Acct: [id number] Name: RAY GONG Rep #: [id number] : 1995 Provider: CONSUELO Felipe Age/Sex: 29/F [place] [facility] [place]: Signed Intake Vital Signs 07/04/24 23:24 12/16/24 09:29 12/16/24 11:53 Height 5 ft 4 in 5 ft 4 in 5 ft 4 in Weight: 129 lb 2 oz BMI 22.1 BP 119/80 Intake Visit Reasons: Right breast lump, family hx breast ca. Chief Complaint: Right Breast Lump Roller Maker Required: No Is patient in pain?: No Allergies No Known Allergies Allergy (Verified 12/16/24 11:50) Is last menstrual period known: Yes Last Menstrual Period: 12/11/24 Post menopausal: No Patient : No : No Control Method[facility] History History of blood transfusion SROM (spontaneous rupture of membranes) hemorrhage depression Active labor at term Hyperglycemia in Family history of neural tube defect Family history of congenital heart defect Family history of cleft palate Anxiety Surgical History H/O dilation and curettage (~08/2018) Family History Mother Breast cancer, Onset Age: 50 Grandfather Cancer Grandmother Breast cancer, Onset Age: 50 Social History household members: family housing: house number of children: 1 Smoking Status: Never smoker second hand exposure: No alcohol intake: never substance use type: does not use seatbelt use: always do you feel safe at home: Yes additional social history: [employer] HPI Right breast lump, family hx breast ca. Details: RAY GONG is a 29 year old who presents for right breast lump. Started menses on thursday and noticed a lump in the right breast yesterday. Is not tender. No skin changes, dimpling or nipple discharge. Did stop breast feeding 2months ago. Does family hx of breast cancer. Female Reproductive History Last Menstrual Period: 12/11/24 Cycle Length: 21-35 History 3 Elective abortions Hx Para 2 Spontaneous abortions Hx # Term Pregnancies Ectopic pregnancies Hx # Pregnancies Multiple births # of living children 3 Past Pregnancies Del. Date Name GA/Weeks Outcome Route Bth Weight Gen Labor Lgth Anesthesia Del Locatn Provider FOB 08/19/18 Roland 40 live - full term 8lbs 15oz Male 8 h ours none Birthing Center in [place] 11/19/20 Tl 39 live - full term Male [facility] Shaina 08/17/23 Melvin 40 live - full term Male [facility] SHAYLA Ameena Delivery Date: 08/19/18 Last Updated by: Elise Carpenter hemorrhage- retained placenta, post dilation and curettage; blood transfusion- received 2 units of blood at [facility] Delivery Date: 08/17/23 Last Updated by: Brenda Farrar, RN See problem list for complications. ROS Const Constitutional: Reports system reviewed and no additional complaints, except as documented Resp Resp: Reports system reviewed and no additional complaints, except as documented GI GI: Reports system reviewed and no additional complaints, except as documented : Reports system reviewed and no additional complaints, except as documented Musc Musc: Reports system reviewed and no additional complaints, except as documented Skin Skin/Breast: Reports system reviewed and no additional complaints, except as documented Psych Psych: Reports system reviewed and no additional complaints, except as documented Exam Const General: cooperative, healthy appearing and comfortable Neck Neck: normal visual inspection and full ROM Chest Chest palpation & inspection: normal inspection of the chest and normal palpation of entire chest wall Breast inspection: normal inspection of the breasts and normal inspection of theaxillae Breast palpation: normal palpation of the breasts and normal palpation of the axillae Resp Effort & Inspection: normal respiratory effort and able to speak in complete sentences GI Inspection: normal to inspection Skin General: no rashes or lesions noted Lesions: no lesions Rashes: no rashes Neuro General: patient alert, patient awake and patient oriented x3 Cognition: normal cognition Speech: speech normal Gait: normal gait Extrem General: normal to inspection and full ROM Psych Appearance: grossly normal Mental Status: mental status grossly normal Mood: congruent mood Affect: normal affect Speech and Movement: speech and movement normal Attitude: cooperative Thought Process: normal Thought Content: normal Coding Level of Care Code Off vis,est,level 3 Diagnoses Breast lump N63.0 Assessment and Plan Assessment and Plan (1) Breast lump: Status: Acute Comment: right side- mammogram ordered. family hx breast cancer Plan: mammogram ordered rto annual/prn Orders: Orders DIAG MAMM W/CAD, UNILAT Today N63.10 - Unspecified lump in the right breast, unspecified quadrant Breast Limited Unilateral Today N63.10 - Unspecified lump in the right breast, unspecified quadrant 12/16/24 1212 <Electronically signed by Dayana francis CNM> Date _ Dayana Felipe CNM Cosigner Signature: Date (if applicable) CC: ~ [facility] Work Phone: Reason for referral (narrative)No reason for referral information availableNapa [facility] Work Phone: Summary Purpose Family History No Family History Records Found Relationship Condition Age at Onset Recorded Date/T lorne mother Malignant neoplasm of breast Unknown grandfather Malignant neoplasm Unknown grandmother Malignant neoplasm of breast Unknown Relationship Condition Age at Onset Recorded Date/T lorne mother Malignant neoplasm of breast 50 grandfather Malignant neoplasm Unknown grandmother Malignant neoplasm of breast 50 Advance Directives No Advanced Directives Records Found Advance Directive Response Recorded Date/ Time Living Will No November 19, 2020 3:07am Power of Lime Vat Tender No November 19 1 3:07am Advance Directive Response Recorded Date/ Time Living Will No November 19, 2020 2:07am Power of Lime Vat Tender No November 19 2:07am Advance Directive Response Recorded Date/ Time Name of Medical Power of Lime Vat Tender adrienne abreu August 17, 2023 8:58pm Living Will Yes August 17, 2023 8:58pm Power of Lime Vat Tender Yes August 16 8:58pm Chief Complaint and Reason for Visit Chief Complaint AMENORRHEA Chief Complaint AMENORRHEA NOB Reason for Visit History of gestation al diabetes History of hemorrhage Supervision of normal Family history of cleft palate Family history of congenital heart defect Family history of neural tube defect Chief Complaint AMENORRHEA NOB E ORDER 14 WK OB Reason for Visit History of gestation al diabetes History of hemorrhage Supervision of normal Family history of cleft palate Family history of congenital heart defect Family history of neural tube defect History of gestational diabetes History of hemorrhage Supervision of normal Chief Complaint AMENORRHEA NOB E ORDER 14 WK OB 18 WK OB 22 WK OB SCREENING Reason for Visit History of gestation al diabetes History of hemorrhage Supervision of normal Family history of cleft palate Family history of congenital heart defect Family history of neural tube defect History of gestational diabetes History of hemorrhage Supervision of normal History of gestational diabetes History of hemorrhage Supervision of normal Chief Complaint NOB E ORDER 14 WK OB 18 WK OB 22 WK OB SCREENING 1 HR GLUCOSE 26 WK OB Reason for Visit History of gestation al diabetes History of hemorrhage Supervision of normal Family history of cleft palate Family history of congenital heart defect Family history of neural tube defect History of gestational diabetes History of hemorrhage Supervision of normal History of gestational diabetes History of hemorrhage Supervision of normal History of gestational diabetes History of hemorrhage Low lying placenta nos or without hemorrhage, second trimester Supervision of normal History of gestational diabetes History of hemorrhage Low lying placenta nos or without hemorrhage, second trimester Supervision of normal Chief Complaint E ORDER 14 WK OB 18 WK OB 22 WK OB SCREENING 1 HR GLUCOSE 26 WK OB Low lying placenta NOS or without hemorrhage, seco 28 WK OB Reason for Visit History of gestation al diabetes History of hemorrhage Supervision of normal History of gestational diabetes History of hemorrhage Supervision of normal History of gestational diabetes History of hemorrhage Low lying placenta nos or without hemorrhage, second trimester Supervision of normal History of gestational diabetes History of hemorrhage Low lying placenta nos or without hemorrhage, second trimester Supervision of normal History of gestational diabetes History of hemorrhage Low lying placenta nos or without hemorrhage, second trimester Supervision of normal Chief Complaint 22 WK OB SCREENING 1 HR GLUCOSE 26 WK OB Low lying placenta NOS or without hemorrhage, seco 28 WK OB 30 WK OB 32 WK OB 34 WK OB 36 WK OB Reason for Visit History of postpartu m hemorrhage Supervision of normal History of gestational diabetes Low lying placenta nos or without hemorrhage, second trimester History of hemorrhage Supervision of normal History of gestational diabetes Low lying placenta nos or without hemorrhage, second trimester History of hemorrhage Supervision of normal History of gestational diabetes Low lying placenta nos or without hemorrhage, second trimester History of hemorrhage Supervision of normal Low lying placenta nos or without hemorrhage, second trimester History of hemorrhage Supervision of normal History of hemorrhage Supervision of normal History of hemorrhage Supervision of normal Chief Complaint 22 WK OB SCREENING 1 HR GLUCOSE 26 WK OB Low lying placenta NOS or without hemorrhage, seco 28 WK OB 30 WK OB 32 WK OB 34 WK OB 36 WK OB 37 WK OB 38 WK OB EXTENDED MONITORING EXTENDED MONITORING Reason for Visit History of postpartu m hemorrhage Supervision of normal History of gestational diabetes Low lying placenta nos or without hemorrhage, second trimester History of hemorrhage Supervision of normal History of gestational diabetes Low lying placenta nos or without hemorrhage, second trimester History of hemorrhage Supervision of normal History of gestational diabetes Low lying placenta nos or without hemorrhage, second trimester History of hemorrhage Supervision of normal Low lying placenta nos or without hemorrhage, second trimester History of hemorrhage Supervision of normal History of hemorrhage Supervision of normal History of hemorrhage Supervision of normal History of hemorrhage Supervision of normal History of hemorrhage Supervision of normal History of hemorrhage Supervision of normal Chief Complaint 1 HR GLUCOSE 26 WK OB Low lying placenta NOS or without hemorrhage, seco 28 WK OB 30 WK OB 32 WK OB 34 WK OB 36 WK OB 37 WK OB 38 WK OB EXTENDED MONITORING EXTENDED MONITORING RULE OUT ROM Reason for Visit History of postpartu m hemorrhage Supervision of normal History of gestational diabetes Low lying placenta nos or without hemorrhage, second trimester History of hemorrhage Supervision of normal History of gestational diabetes Low lying placenta nos or without hemorrhage, second trimester History of hemorrhage Supervision of normal Low lying placenta nos or without hemorrhage, second trimester History of hemorrhage Supervision of normal History of hemorrhage Supervision of normal History of hemorrhage Supervision of normal History of hemorrhage Supervision of normal History of hemorrhage Supervision of normal History of hemorrhage Supervision of normal Chief Complaint 1 HR GLUCOSE 26 WK OB Low lying placenta NOS or without hemorrhage, seco 28 WK OB 30 WK OB 32 WK OB 34 WK OB 36 WK OB 37 WK OB 38 WK OB EXTENDED MONITORING EXTENDED MONITORING RULE OUT ROM RULE OUT ROM 39 WK OB VAGINAL DELIVERY VAGINAL DELIVERY VAGINAL DELIVERY VAGINAL DELIVERY Reason for Visit History of postpartu m hemorrhage History of gestational diabetes Low lying placenta nos or without hemorrhage, second trimester Supervision of normal History of hemorrhage History of gestational diabetes Low lying placenta nos or without hemorrhage, second trimester Supervision of normal History of hemorrhage Low lying placenta nos or without hemorrhage, second trimester Supervision of normal History of hemorrhage Supervision of normal History of hemorrhage Supervision of normal History of hemorrhage Supervision of normal History of hemorrhage Supervision of normal History of hemorrhage Supervision of normal History of hemorrhage Supervision of normal No leakage of amniotic fluid into vagina History of hemorrhage No leakage of amniotic fluid into vagina Supervision of normal History of hemorrhage (spontaneous vaginal delivery) Supervision of normal Chief Complaint Admit Date Right breast lump, family hx breast ca. December 16, 2024 11:48am Reason for Visit Admit Date Breast lump December 16, 2024 11:4 8am Additional Source Comments INFORMATION SOURCE (unrecogn ized section and content) DATE CREATED AUTHOR 08/27/2018 Sal Flores [facility] DATE CREATED AUTHOR AUTHOR'S ORGANIZ ATION 01/15/2025 [facility] Teams (unrecognized sec tion and content) Team Status: Active Member Role Status Dates Dr. Neptali Meza , Family Provider Active No Primary Care Physician Primary Care Provider Active Team Status: Inactive Member Role Status Dates No Primary Care Physician Primary Care Provider Active Dr. Breanna Merritt MD Attending Provider, Referr ing Provider Active Team Status: Inactive Member Role Status Dates No Primary Care Physician Primary Care Provider, Refer ring Provider Active Irina Barth CNM Attending Provider Active Team Status: Inactive Member Role Status Dates No Primary Care Physician Primary Care Provider Active Irina Barth CNM Attending Provider, Referring Pr ovider Active Team Status: Inactive Member Role Status Dates No Primary Care Physician Primary Care Provider, Refer ring Provider Active Dayana Felipe CNM Attending Provider Active Team Status: Inactive Member Role Status Dates No Primary Care Physician Primary Care Provider Active Dayana Felipe CNM Attending Provider, Referring Pro vider Active Team Status: Inactive Member Role Status Dates No Primary Care Physician Primary Care Provider, Refer ring Provider Active Dr. Breanna Merritt MD Attending Provider Active Team Status: Inactive Member Role Status Dates No Primary Care Physician Primary Care Provider, Refer ring Provider Active Dr. Argentina Soler DO Attending Provider Activ e Team Status: Inactive Member Role Status Dates No Primary Care Physician Primary Care Provider, Refer ring Provider Active Lou Reyes [employer] CLAIM EXAMINER, [employer] INS[employer] CLAIM EXAMINER-C Attending Provider Active Team Status: Inactive Member Role Status Dates No Primary Care Physician Primary Care Provider Active Lou Reyes [employer] CLAIM EXAMINER, [employer] CLAIM EXAMINER-C Attending Provider Active Team Status: Active Member Role Status Dates No Primary Care Physician Primary Care Provider Active Dr. Argentina Soler DO Attending Provider, Referring Provider, Other Provider Active Team Status: Inactive Member Role Status Dates No Primary Care Physician Primary Care Provider Active Dr. Argentina Soler DO Attending Provider, Refe rring Provider Active Team Status: Active Member Role Status Dates No Primary Care Physician Primary Care Provider Active Irina Barth CNM Attending Provider , Referring Provider, Other Provider Active Team Status: Active Member Role Status Dates No Primary Care Physician Primary Care Provider Active Irina Barth CNM Admit Provider, At tending Provider, Other Provider Active Team Status: Active Member Role Status Dates No Primary Care Physician Primary Care Provider Active Irina Barth CNM Admit Provider, Other Provider A ctive Dayana Felipe CNM Attending Provider Active Team Status: Active Member Role Status Dates No Primary Care Physician Primary Care Provider Active Irina Barth CNM Admit Provider, Other Provider A ctive Lou Reyes [employer] CLAIM EXAMINER, [employer] CLAIM EXAMINER-C Attending Provider Active Team Status: Inactive Member Role Status Dates No Primary Care Physician Primary Care Provider Active Irina Barth CNM Admit Provider, Attending Provid er Active Team Status: Active Member Role/Relationship Status Dates Dr. Neptali Meza , DO Family Provider Active No Primary Care Physician Primary Care Provider Active Team Status: Inactive Member Role/Relationship Status Dates No Primary Care Physician Primary Care Provider Active Start: December 16, 2024 End: December 16, 2024 No Primary Care Physician Referring Provider Active Start: December 16, 2024 End: December 16, 2024 Dayana Felipe CNM Attending Provider Active S tart: December 16, 2024 End: December 16, 2024 Goals (unrecognized section and content) Goals may be documented in a n alternate sectionGoals may be documented in an alternate sectionGoals may be documented in an alternate sectionGoals may be documented in an alternate sectionGoals may be documented in an alternate sectionGoals may be documented in an alternate sectionGoals may be documented in an alternate sectionGoals may be documented in an alternate sectionGoals may be documented in an alternate sectionGoals may be documented in an alternate sectionGoals may be documented in an alternate section FOR RECORDS PERTAINING TO PATIENTS WHO ARE OR HAVE BEEN ENROLLED IN A CHEMICAL DEPENDENCY/SUBSTANCEABUSE PROGRAM, SOME INFORMATION MAY BE OMITTED. This clinical summary was aggregated from multiple sources. Caution should be exercised in using it in the provision of clinical care. This summary normalizes information from multiple sources, and as a consequence, information in this document may materially change the coding, format and clinical context of patient data. In addition, data may be omitted in some cases. CLINICAL DECISIONS SHOULD BE BASED ON THE PRIMARY CLINICAL RECORDS. [facility] [employer] [facility]. provides no warranty or guarantee of the accuracy or completeness of information in this document.
[2025-01-20 12:59] LABS: hCG Titer Quant., Serum < 1 mIU/mL (<9 non-preg)
== END | disposition home or self-care (01) ==
PROVIDERS: Visit Provider Advanced Practice Midwife
DX: N64.4 Mastodynia (principal); R53.83 Other fatigue
CPT/HCPCS: 36415; 84443; 84702

== ENCOUNTER → 2025-03-22 | Outpatient (CLI) | payer OTHER, SELFPAY ==
[2025-03-22 16:37] LABS: Hematocrit 39.1 % (37-47); Hemoglobin 13.1 g/dL (12.0-15.0); Immature Granulocytes Count 0.020 X10^3/uL (0.0-0.0); Mean Corp Hgb Conc 33.5 g/dL (32-36); Mean Corpuscular Volume 90.9 fL (81-99); Mean Platelet Vol. 9.2 fl (6.2-12.0); NRBC Flagged by Analyzer 0 % (0-5); Platelet Count 253 K/mm3 (150-450); RBC Distribution Width CV 12.8 % (11.6-14.6); RBC Distribution Width SD 41.7 fl (35.1-43.9); Red Blood Count 4.30 M/mm3 (4.2-5.4); White Blood Count 6.3 K/mm3 (4.4-11.0)
[2025-03-22 17:16] LABS: AST(SGOT) 15 U/L (<=31); Alanine Aminotransfer ALT/SGPT 12 U/L (<=34); Albumin, Serum 4.6 g/dL (3.5-5.0); Alkaline Phosphatase 49 U/L (35-104); Anion Gap 11 (5-15); BUN 15 mg/dL (4-19); BUN/Creat Ratio 23.1 RATIO (10-20); Calcium,Total 9.6 mg/dL (7.6-11.0); Carbon Dioxide 25.3 mmol/L (21.0-32.0); Chloride 104 mmol/L (98-108); Globulin 2.7 g/dL (2.2-4.2); Glucose 96 mg/dL (70-99); Potassium 3.8 mmol/L (3.3-5.1)
[2025-03-24 17:08] LABS: Lyme Scn Total Ab w/Rflx Negative (Negative)
== END | disposition home or self-care (01) ==
PROVIDERS: Referring Provider Nurse Practitioner Family; Visit Provider Nurse Practitioner Family
DX: M79.10 Myalgia, unspecified site (principal); R53.83 Other fatigue
CPT/HCPCS: 36415; 80053; 85025; 86618